=== PATIENT | female | born 1970 | race African-American/Black ===

== ENCOUNTER 2016-04-04 22:03 | Emergency (ER) | payer MEDICAID ==
[2016-04-04 22:42] LABS: ABSOLUTE BASOPHILS # (AUTO) 0.1 10^3/uL (0.0-0.2); ABSOLUTE EOSINOPHILS # (AUTO) 0.1 10^3/uL (0.0-0.6); ABSOLUTE LYMPHOCYTES (AUTO) 2.9 10^3/uL (0.5-4.7); ABSOLUTE MONOCYTES (AUTO) 0.6 10^3/uL (0.1-1.4); BASOPHILS % (AUTO) 0.7 % (0-2); EOSINOPHILS % (AUTO) 1.5 % (0-6); HEMATOCRIT 43.1 % (36.0-47.0); HGB HCT DIFFERENCE -1.1; LYMPHOCYTES % (AUTO) 33.5 % (13-45); MEAN CORPUSCULAR HEMOGLOBIN 27.4 pg (27.0-33.4); MEAN CORPUSCULAR HGB CONC 32.5 g/dL (32.0-36.0); MEAN CORPUSCULAR VOLUME 84 fl (80-97); MONOCYTES % (AUTO) 7.2 % (3-13); RED BLOOD COUNT 5.12 10^6/uL (3.72-5.28); RED CELL DISTRIBUTION WIDTH 13.4 % (11.5-14.0); SEGMENTED NEUTROPHILS % (AUTO) 57.1 % (42-78); WHITE BLOOD COUNT 8.7 10^3/uL (4.0-10.5)
[2016-04-04 22:57] LABS: ANION GAP 10 (5-19); BLOOD UREA NITROGEN 12 mg/dL (7-20); CALCIUM 9.4 mg/dL (8.4-10.2); CARBON DIOXIDE 29 mmol/L (22-30); CHLORIDE 103 mmol/L (98-107); CREATININE RESULT 0.75 mg/dL (0.52-1.25); GLUCOSE 131 mg/dL (75-110); POTASSIUM 4.3 mmol/L (3.6-5.0); SODIUM 141.9 mmol/L (137-145)
[2016-04-04] MEDS ORDERED: MORPHINE SULFATE 10 MG/ML INJ ONE (23:22)
--- NOTE | 2016-04-05 00:37 | ER Document Report ---
ED General - General Chief Complaint: Chest Pain Stated Complaint: CHEST PAIN Notes: Patient is a 46-year-old female past medical history of CHF, hypertension, morbid obesity, hyperlipidemia who presents with with acute onset of severe left shoulder pain and left chest wall pain. States this started after she lifted her arm and heard a "pop". This caused severe pain in the left shoulder and left chest that she describes as a sharp, constant pain. Pain is worsened by range of motion of the shoulder and palpation of the chest wall. Nothing improves the pain. States she's had similar symptoms in the past and has seen her primary care physician for concerns regarding her left shoulder. She denies any associated shortness of breath, vomiting, or diaphoresis. TRAVEL OUTSIDE OF THE [place] IN LAST 30 DAYS: No - HPI Onset: Just prior to arrival Onset/Duration: Sudden Quality of pain: Sharp Severity: Moderate Pain Level: 2 Associated symptoms: None Exacerbated by: Movement Relieved by: Denies Similar symptoms previously: Yes Recently seen / treated by doctor: Yes - Related Data Allergies/Adverse Reactions: aspirin Allergy (Severe, Verified 10/28/15 02:59) Anaphylaxis ibuprofen [Ibuprofen] Allergy (Severe, Verified 10/28/15 02:59) Anaphylaxis ciprofloxacin [From Cipro] Allergy (Intermediate, Verified 10/28/15 02:59) itching egg [Egg] Allergy (Verified 10/28/15 02:59) Anaphylaxis Penicillins Allergy (Verified 10/28/15 02:59) Anaphylaxis metoclopramide [From Reglan] Adverse Reaction (Severe, Verified 11/12/15 11:27) Past Medical History - General Information source: Patient - Social History Smoking Status: Never Smoker Frequency of alcohol use: None Drug Abuse: None Lives with: Spouse/Significant other Family History: Reviewed & Not Pertinent - Past Medical History Cardiac Medical History: Reports: Hx Congestive Heart Failure, Hx Hypertension Denies: Hx Heart Attack Pulmonary Medical History: Endocrine Medical History: Reports: Hx Diabetes Mellitus Type 2 Malignancy Medical History: GI Medical History: Reports: Hx Gastroesophageal Reflux Disease, Hx Irritable Bowel Musculoskeltal Medical History: Reports Hx Musculoskeletal Deformity, Reports Hx Musculoskeletal Trauma Psychiatric Medical History: Reports: Hx Anxiety, Hx Depression Infectious Medical History: Past Surgical History: Reports: Hx Breast Surgery - breast reduction, biopsy, Hx Mastectomy, Hx Rectal Surgery - Fistula, hemorrhoids, Hx Tubal Ligation - Immunizations Immunizations up to date: Yes Hx Diphtheria, Pertussis, Tetanus Vaccination: Yes Review of Systems - Review of Systems Notes: Constitutional: Negative for fever. HENT: Negative for sore throat. Eyes: Negative for visual changes. Cardiovascular: Positive for chest pain. Respiratory: Negative for shortness of breath. Gastrointestinal: Negative for abdominal pain, vomiting or diarrhea. Genitourinary: Negative for dysuria. Musculoskeletal: Positive for chest wall pain and left shoulder pain. Skin: Negative for rash. Neurological: Negative for headaches, weakness or numbness. 10 point ROS negative except as marked above and in HPI. Physical Exam - Vital signs Vitals: Resp Pulse Ox 25 H 96 04/04/16 22:08 04/04/16 22:08 I disagree with triage respiratory rate. Patient had even and unlabored respirations at 16 at time of my assessment Interpretation: Normal Notes: PHYSICAL EXAMINATION: GENERAL: Well-appearing, well-nourished and in no acute distress. HEAD: Atraumatic, normocephalic. EYES: Pupils equal round and reactive to light, extraocular movements intact, sclera anicteric, conjunctiva are normal. ENT: nares patent, oropharynx clear without exudates. Moist mucous membranes. NECK: Normal range of motion, supple without lymphadenopathy LUNGS: Breath sounds clear to auscultation bilaterally and equal. No wheezes rales or rhonchi. HEART: Regular rate and rhythm without murmurs Chest wall: Severe pain on palpation of the left anterior lateral chest wall ABDOMEN: Soft, nontender, normoactive bowel sounds. No guarding, no rebound. No masses appreciated. EXTREMITIES: Extreme pain of the left shoulder and left anterior chest with abduction and elevation of the shoulder above 90. NEUROLOGICAL: No focal neurological deficits. Moves all extremities spontaneously and on command. PSYCH: Normal mood, normal affect. SKIN: Warm, Dry, normal turgor, no rashes or lesions noted. Course - Re-evaluation Re-evalutation: 04/05/16 00:58 Presentation of chest pain in an otherwise well appearing patient. Low clinical suspicion for ACS given clinical history, exam, EKG without ST elevations or depressions, and negative initial troponin. HEART score less than or equal to 3. PE also seems unlikely given clinical history, absence of tachycardia or dyspnea. Patient is PERC criteria negative. CXR without evidence of pneumothorax or pneumonia. No widened mediastinum. Aortic dissection also seems unlikely given history, symmetric pulses, CXR, and vitals. Patient does report her pain started after she moved her left shoulder and heard a pop. She has a significant component of reproducible pain over the chest and shoulder with range of motion of the left shoulder. Given reassuring evaluation, will plan for discharge home at this time with return precautions and follow-up recommendations. - Vital Signs Vital signs: Temp Pulse Resp BP Pulse Ox 25 H 146/99 H 97 04/04/16 23:00 04/04/16 22:52 04/04/16 23:00 - Laboratory Result Diagrams: 04/04/16 22:31 04/04/16 22:31 Laboratory results interpreted by me: 04/04/16 22:31 Glucose 131 H - Diagnostic Test Radiology reviewed: Image reviewed, Reports reviewed Radiology results interpreted by me: 04/05/16 01:02 Chest x-ray: No acute infiltrate or pneumothorax - EKG Interpretation by Me Additional EKG results interpreted by me: 04/05/16 01:02 Normal sinus rhythm. Rate 70. No ST elevations or depressions. LVH. QTC 432 Discharge - Discharge Clinical Impression: Chest pain Qualifiers: Chest pain type: unspecified Qualified Code(s): R07.9 - Chest pain, unspecified Left shoulder pain Qualifiers: Chronicity: acute Qualified Code(s): M25.512 - Pain in left shoulder Condition: Good Disposition: HOME, SELF-CARE Additional Instructions: You were seen today for chest pain. The exact cause of your pain is unclear. However, based on your cardiac enzyme testing, chest x-ray, and EKG it does not appear that it is from an immediately life-threatening cause at this time. Although your testing here is normal is critical that you follow-up with your primary care physician for continued evaluation of this chest pain. Your pain appears to be originating from your left shoulder and you should discuss a referral to orthopedic surgery with your primary care doctor. Please return to emergency department immediately if you have worsening of your chest pain, shortness of breath, vomiting, become unable to exert yourself due to pain or difficulty breathing, you pass out, or have any pain that radiates into your arms, jaw, or back. Please also return if you have any additional symptoms that are concerning to you. Referrals: JULIA THOMAS MD [Primary Care Provider] - Follow up as needed
[2016-04-05 01:17] VITALS: BP 147/86
--- NOTE | 2016-04-05 10:20 | EKG REPORT ---
SEVERITY:- ABNORMAL ECG - SINUS RHYTHM LVH WITH SECONDARY REPOLARIZATION ABNORMALITY ANTERIOR Q WAVES, POSSIBLY DUE TO LVH : Confirmed by: Soheila Thompson 05-Apr-2016 10:19:04
== END 2016-04-05 01:17 | disposition home or self-care (01) ==
LOC: ER 22:03
DX: R07.89 Other chest pain (principal); M25.512 Pain in left shoulder; I10 Essential (primary) hypertension; E11.9 Type 2 diabetes mellitus without complications; E66.01 Morbid (severe) obesity due to excess calories; Z68.43 Body mass index [BMI] 50.0-59.9, adult; Z86.79 Personal history of other diseases of the circulatory system; Z91.012 Allergy to eggs; Z88.1 Allergy status to other antibiotic agents; Z87.892 Personal history of anaphylaxis; Z88.6 Allergy status to analgesic agent; Z88.0 Allergy status to penicillin; Z87.19 Personal history of other diseases of the digestive system
CPT/HCPCS: 93005; 99285; 96374; 36415; 85025; 80048; 84484; 71010; 93010; J2270

== ENCOUNTER 2016-04-20 23:31 | Emergency (ER) | payer MEDICAID ==
--- NOTE | 2016-04-21 01:17 | ER Document Report ---
ED Extremity Problem, Upper - General Chief Complaint: Arm Pain Stated Complaint: CHEST PAIN Time seen by provider: 01:17 Mode of Arrival: Ambulatory Information source: Patient TRAVEL OUTSIDE OF THE [place] IN LAST 30 DAYS: No - HPI Patient complains to provider of: Pain, Left, Shoulder Onset: Other - Greater than one month Recent injury: No Quality of pain: Achy Severity of pain: Moderate Pain Level: 4 Associated symptoms: Chest pain/discomfort, Short of breath Exacerbated by: Movement Relieved by: Nothing Similar symptoms previously: Yes Recently seen / treated by doctor: Yes Notes: Patient is a 46-year-old female complaining of pain to the left side of her body starting at the neck, radiating down the arm, and the left anterior chest wall, these symptoms have been going on for at least the past month, she has been evaluated in this emergency room for these symptoms twice previously, has been seen by her primary care provider and has for appointments with different specialists in the upcoming week to be seen for this complaint, she states that her primary care provider took her off of some medication recently that is used to treat gastroparesis because it was causing some lower extremity paralysis, and since then her pain has increased, she denies any new injury, she does report shortness of breath associated with the pain, reports it is painful to move the left shoulder and the neck - Related Data Allergies/Adverse Reactions: aspirin Allergy (Severe, Verified 10/28/15 02:59) Anaphylaxis ibuprofen [Ibuprofen] Allergy (Severe, Verified 10/28/15 02:59) Anaphylaxis ciprofloxacin [From Cipro] Allergy (Intermediate, Verified 10/28/15 02:59) itching egg [Egg] Allergy (Verified 10/28/15 02:59) Anaphylaxis Penicillins Allergy (Verified 10/28/15 02:59) Anaphylaxis metoclopramide [From Reglan] Adverse Reaction (Severe, Verified 11/12/15 11:27) Past Medical History - General Information source: Patient - Social History Smoking Status: Current Every Day Smoker Family History: Reviewed & Not Pertinent Patient has suicidal ideation: No Patient has homicidal ideation: No - Past Medical History Cardiac Medical History: Reports: Hx Congestive Heart Failure, Hx Hypertension Denies: Hx Heart Attack Pulmonary Medical History: Endocrine Medical History: Reports: Hx Diabetes Mellitus Type 2 Renal/ Medical History: Denies: Hx Peritoneal Dialysis Malignancy Medical History: GI Medical History: Reports: Hx Gastroesophageal Reflux Disease, Hx Irritable Bowel Musculoskeltal Medical History: Reports Hx Musculoskeletal Deformity, Reports Hx Musculoskeletal Trauma Psychiatric Medical History: Reports: Hx Anxiety, Hx Depression Infectious Medical History: Past Surgical History: Reports: Hx Breast Surgery - breast reduction, biopsy, Hx Mastectomy, Hx Rectal Surgery - Fistula, hemorrhoids, Hx Tubal Ligation - Immunizations Immunizations up to date: Yes Hx Diphtheria, Pertussis, Tetanus Vaccination: Yes Review of Systems - Review of Systems Constitutional: No symptoms reported EENT: No symptoms reported Cardiovascular: Chest pain Respiratory: Short of breath Gastrointestinal: No symptoms reported Genitourinary: No symptoms reported Female Genitourinary: No symptoms reported Musculoskeletal: See HPI Skin: No symptoms reported Hematologic/Lymphatic: No symptoms reported Neurological/Psychological: No symptoms reported -: Yes All other systems reviewed and negative Physical Exam - Vital signs Interpretation: Normal - General General appearance: Appears well, Alert - HEENT Head: Normocephalic, Atraumatic Eyes: Normal Pupils: PERRL - Respiratory Respiratory status: No respiratory distress Chest status: Tender - Left anterior chest wall Breath sounds: Normal Chest palpation: Normal - Cardiovascular Rhythm: Regular Heart sounds: Normal auscultation Murmur: No - Abdominal Inspection: Morbidly Obese Distension: No distension Bowel sounds: Normal Tenderness: Nontender Organomegaly: No organomegaly - Back Back: Normal, Nontender - Extremities General upper extremity: Normal color, Normal temperature General lower extremity: Normal inspection, Nontender, Normal color, Normal ROM , Normal temperature, Normal weight bearing. No: Annette's sign Shoulder: Tender - Tender to palpate left shoulder anteriorly and laterally, patient reports pain with range of motion testing, pain shoots down the arm, distal sensation and motor is intact, 2+ radial pulses - Neurological Neuro grossly intact: Yes Cognition: Normal Orientation: AAOx4 Kimberly Coma Scale Eye Opening: Spontaneous Crystal Coma Scale Verbal: Oriented Kimberly Coma Scale Motor: Obeys Commands Kimberly Coma Scale Total: 15 Speech: Normal Motor strength normal: LUE, RUE, LLE, RLE Sensory: Normal - Psychological Associated symptoms: Normal affect, Normal mood - Skin Skin Temperature: Warm Skin Moisture: Dry Skin Color: Normal Course - Re-evaluation Re-evalutation: 04/21/16 02:55 Patient declined morphine, requested Tylenol, on reevaluation states pain is "easing off", and states she just wants to go home, patient was advised to follow-up with her primary care provider in the specialists that she is scheduled to see this week, take Tylenol as needed for pain or return if symptoms worsen, patient acknowledges understanding and agreement with this plan - Laboratory Result Diagrams: 04/21/16 01:28 04/21/16 01:28 Laboratory results interpreted by me: 04/21/16 04/21/16 01:28 01:28 Basophils % 2.6 H Glucose 142 H - Diagnostic Test Radiology reviewed: Image reviewed, Reports reviewed - EKG Interpretation by Me EKG shows normal: Sinus rhythm Rate: Normal Rhythm: NSR When compared to previous EKG there are: No significant change Discharge - Discharge Clinical Impression: Left-sided chest wall pain Left shoulder pain Qualifiers: Chronicity: acute Qualified Code(s): M25.512 - Pain in left shoulder Condition: Stable Disposition: HOME, SELF-CARE Instructions: Chest Wall Pain ([facility]), Shoulder Injury ([facility]) Additional Instructions: Follow up with your primary care provider and the specialist that you're scheduled to see this week. Return to the emergency room immediately if symptoms worsen or any additional concerns.
[2016-04-21] MEDS ORDERED: MORPHINE SULFATE 10 MG/ML INJ IV ONE (01:43)
[2016-04-21 01:45] LABS: ABSOLUTE BASOPHILS # (AUTO) 0.2 10^3/uL (0.0-0.2); ABSOLUTE EOSINOPHILS # (AUTO) 0.1 10^3/uL (0.0-0.6); ABSOLUTE LYMPHOCYTES (AUTO) 2.6 10^3/uL (0.5-4.7); ABSOLUTE MONOCYTES (AUTO) 0.7 10^3/uL (0.1-1.4); ABSOLUTE NEUT (AUTO) 5.3 10^3/uL (1.7-8.2); BASOPHILS % (AUTO) 2.6 % (0-2); EOSINOPHILS % (AUTO) 1.6 % (0-6); HEMATOCRIT 41.7 % (36.0-47.0); HEMOGLOBIN 13.4 g/dL (12.0-15.5); HGB HCT DIFFERENCE -1.5; MEAN CORPUSCULAR HEMOGLOBIN 27.2 pg (27.0-33.4); MEAN CORPUSCULAR VOLUME 85 fl (80-97); MONOCYTES % (AUTO) 7.3 % (3-13); RED BLOOD COUNT 4.91 10^6/uL (3.72-5.28); RED CELL DISTRIBUTION WIDTH 13.5 % (11.5-14.0); SEGMENTED NEUTROPHILS % (AUTO) 59.5 % (42-78); WHITE BLOOD COUNT 8.9 10^3/uL (4.0-10.5)
[2016-04-21 02:00] LABS: ALBUMIN 3.9 g/dL (3.5-5.0); ALKALINE PHOSPHATASE 117 U/L (38-126); ANION GAP 11 (5-19); ASPARTATE AMINO TRANSFERASE 21 U/L (14-36); BILIRUBIN,TOTAL 0.8 mg/dL (0.2-1.3); BLOOD UREA NITROGEN 12 mg/dL (7-20); CALCIUM 9.4 mg/dL (8.4-10.2); CARBON DIOXIDE 28 mmol/L (22-30); CHLORIDE 103 mmol/L (98-107); CREATINE KINASE 82 U/L (30-135); GLUCOSE 142 mg/dL (75-110); POTASSIUM 3.7 mmol/L (3.6-5.0); SODIUM 141.9 mmol/L (137-145); TOTAL PROTEIN 7.4 g/dL (6.3-8.2)
[2016-04-21] MEDS ORDERED: ACETAMINOPHEN 325 MG TABLET PO ONE (02:07)
[2016-04-21 02:12] LABS: CREATINE KINASE MB 0.37 ng/mL (<4.55)
[2016-04-21 02:16] LABS: TROPONIN I < 0.012 ng/mL
[2016-04-21 02:23] LABS: ALANINE AMINOTRANSFERASE 23 U/L (9-52)
[2016-04-21 03:12] VITALS: BP 118/61
--- NOTE | 2016-04-21 10:14 | EKG REPORT ---
SEVERITY:- ABNORMAL ECG - SINUS RHYTHM LVH WITH SECONDARY REPOLARIZATION ABNORMALITY ANTERIOR Q WAVES, POSSIBLY DUE TO LVH : Confirmed by: Soheila Thompson 21-Apr-2016 10:12:24
== END 2016-04-21 03:26 | disposition home or self-care (01) ==
LOC: ER 23:31
DX: R07.89 Other chest pain (principal); M25.512 Pain in left shoulder; M54.2 Cervicalgia; R06.02 Shortness of breath; E11.43 Type 2 diabetes mellitus with diabetic autonomic (poly)neuropathy; K31.84 Gastroparesis; I10 Essential (primary) hypertension; F17.200 Nicotine dependence, unspecified, uncomplicated; Z87.892 Personal history of anaphylaxis; Z88.6 Allergy status to analgesic agent; Z88.1 Allergy status to other antibiotic agents; Z91.012 Allergy to eggs; Z88.0 Allergy status to penicillin
CPT/HCPCS: 93005; 99284; 36415; 82553; 82550; 85025; 80053; 84484; 71010; 93010; J3490

== ENCOUNTER → 2016-09-19 | Outpatient (CLI) | payer MEDICAID, OTHER | LOC: RAD 10:09 | PROVIDERS: ATTEND Orthopaedic Surgery Sports Medicine | DX: M50.30 Other cervical disc degeneration, unspecified cervical region (principal); Z53.09 Procedure and treatment not carried out because of other contraindication; F40.240 Claustrophobia ==

== ENCOUNTER → 2016-10-20 | Outpatient (CLI) | payer MEDICAID ==
--- NOTE | 2016-10-20 11:47 | RADIOLOGY REPORT (SQ) ---
EXAM DESCRIPTION: MRI CERVICAL SPINE WITHOUT COMPLETED DATE/TIME: 10/20/2016 11:09 am REASON FOR STUDY: OTHER CERVICAL DISC DEGENERATION, UNSPECIFIED CERVICAL REGION M50.30 OTHER CERVIC AL DISC DEGENERATION, UNSP CERVICAL REGIO COMPARISON: None. TECHNIQUE: Sagittal and Axial imaging includes T1, T2, STIR and gradient echo sequences. LIMITATIONS: None. FINDINGS: ALIGNMENT: Normal. VERTEBRAE: Intact. BONE MARROW: Normal. No marrow replacement or reactive changes. DISCS: Normal. No significant abnormal signal or loss of height. HARDWARE: None in the spine. CORD AND BASE OF BRAIN: Normal in size and signal intensity. SOFT TISSUES: No soft tissue masses. C1-C2: No significant spinal stenosis. C2-C3: No significant spinal stenosis or exit foraminal stenosis. C3-C4: No significant spinal stenosis or exit foraminal stenosis. C4-C5: No significant spinal stenosis or exit foraminal stenosis. C5-C6: No significant spinal stenosis or exit foraminal stenosis. C6-C7: No significant spinal stenosis or exit foraminal stenosis. C7-T1: No significant spinal stenosis or exit foraminal stenosis. UPPER THORACIC: Incompletely imaged. No significant spinal stenosis or exit foraminal stenosis. OTHER: No other significant finding. IMPRESSION: NORMAL MRI CERVICAL SPINE. TECHNICAL DOCUMENTATION: JOB ID: [id number] [employer]- All Rights Reserved
== END ==
LOC: RAD 09:28
PROVIDERS: ATTEND Orthopaedic Surgery Sports Medicine
DX: M50.30 Other cervical disc degeneration, unspecified cervical region (principal)
CPT/HCPCS: 72141

== ENCOUNTER 2016-12-13 05:02 | Observation (INO) | payer MEDICAID ==
[2016-12-13] MEDS ORDERED: ASPIRIN 81 MG TABLET, CHEWABLE PO ONE (05:04)
[2016-12-13 06:15] LABS: ABSOLUTE BASOPHILS # (AUTO) 0.1 10^3/uL (0.0-0.2); ABSOLUTE EOSINOPHILS # (AUTO) 0.2 10^3/uL (0.0-0.6); ABSOLUTE LYMPHOCYTES (AUTO) 2.6 10^3/uL (0.5-4.7); ABSOLUTE MONOCYTES (AUTO) 0.9 10^3/uL (0.1-1.4); ABSOLUTE NEUT (AUTO) 6.8 10^3/uL (1.7-8.2); BASOPHILS % (AUTO) 0.9 % (0-2); EOSINOPHILS % (AUTO) 1.6 % (0-6); HEMOGLOBIN 13.8 g/dL (12.0-15.5); HGB HCT DIFFERENCE 0.4; LYMPHOCYTES % (AUTO) 24.6 % (13-45); MEAN CORPUSCULAR HEMOGLOBIN 28.8 pg (27.0-33.4); MEAN CORPUSCULAR HGB CONC 33.6 g/dL (32.0-36.0); MEAN CORPUSCULAR VOLUME 86 fl (80-97); MONOCYTES % (AUTO) 8.7 % (3-13); RED BLOOD COUNT 4.77 10^6/uL (3.72-5.28); RED CELL DISTRIBUTION WIDTH 13.2 % (11.5-14.0); SEGMENTED NEUTROPHILS % (AUTO) 64.2 % (42-78); WHITE BLOOD COUNT 10.6 10^3/uL (4.0-10.5)
[2016-12-13 06:24] LABS: ALANINE AMINOTRANSFERASE 24 U/L (9-52); ALKALINE PHOSPHATASE 131 U/L (38-126); ANION GAP 10 (5-19); ASPARTATE AMINO TRANSFERASE 19 U/L (14-36); BILIRUBIN,DIRECT 0.4 mg/dL (0.0-0.4); BILIRUBIN,TOTAL 0.6 mg/dL (0.2-1.3); BLOOD UREA NITROGEN 11 mg/dL (7-20); CALCIUM 9.2 mg/dL (8.4-10.2); CARBON DIOXIDE 25 mmol/L (22-30); CHLORIDE 104 mmol/L (98-107); CREATINE KINASE 85 U/L (30-135); CREATININE RESULT 0.69 mg/dL (0.52-1.25); GLUCOSE 156 mg/dL (75-110); POTASSIUM 4.1 mmol/L (3.6-5.0); TOTAL PROTEIN 7.1 g/dL (6.3-8.2)
[2016-12-13 06:33] LABS: CREATINE KINASE MB 0.67 ng/mL (<4.55)
[2016-12-13 06:39] LABS: TROPONIN I < 0.012 ng/mL
[2016-12-13] MEDS ORDERED: CLOPIDOGREL BISULFATE 75 MG TABLET PO ONE (06:47)
--- NOTE | 2016-12-13 07:19 | ER Document Report ---
ED General - General Chief Complaint: Chest Pain Stated Complaint: CHEST PAIN Time Seen by Provider: 12/13/16 06:14 Mode of Arrival: Ambulatory Information source: Patient Notes: 46-year-old female history of hypertension presents with complaints of midsternal chest pressure radiating down the left arm. Patient notes she has had a stress test in the past denies any fevers or chills denies any nausea vomiting or diarrhea notes the pain came on all of a sudden is worse than before. Patient was recently here had 2 sets of negative enzymes and was discharged home on the second TRAVEL OUTSIDE OF THE [place] IN LAST 30 DAYS: No - HPI Onset: Just prior to arrival Onset/Duration: Persistent Quality of pain: Pressure Severity: Mild Pain Level: 1 Associated symptoms: Chest pain, Shortness of breath Exacerbated by: Denies Relieved by: Denies Similar symptoms previously: Yes Recently seen / treated by doctor: Yes - Related Data Allergies/Adverse Reactions: aspirin Allergy (Severe, Verified 10/28/15 02:59) Anaphylaxis ibuprofen [Ibuprofen] Allergy (Severe, Verified 10/28/15 02:59) Anaphylaxis ciprofloxacin [From Cipro] Allergy (Intermediate, Verified 10/28/15 02:59) itching egg [Egg] Allergy (Verified 10/28/15 02:59) Anaphylaxis Penicillins Allergy (Verified 10/28/15 02:59) Anaphylaxis metoclopramide [From Reglan] Adverse Reaction (Severe, Verified 11/12/15 11:27) Past Medical History - Social History Smoking Status: Never Smoker Cigarette use (# per day): No Chew tobacco use (# tins/day): No Smoking Education Provided: No Family History: Reviewed & Not Pertinent - Past Medical History Cardiac Medical History: Reports: Hx Congestive Heart Failure, Hx Hypertension Denies: Hx Heart Attack Pulmonary Medical History: Endocrine Medical History: Reports: Hx Diabetes Mellitus Type 2 Renal/ Medical History: Denies: Hx Peritoneal Dialysis Malignancy Medical History: GI Medical History: Reports: Hx Gastroesophageal Reflux Disease, Hx Irritable Bowel Musculoskeltal Medical History: Reports Hx Musculoskeletal Deformity, Reports Hx Musculoskeletal Trauma Psychiatric Medical History: Reports: Hx Anxiety, Hx Depression Infectious Medical History: Past Surgical History: Reports: Hx Breast Surgery - breast reduction, biopsy, Hx Mastectomy, Hx Rectal Surgery - Fistula, hemorrhoids, Hx Tubal Ligation - Immunizations Immunizations up to date: Yes Hx Diphtheria, Pertussis, Tetanus Vaccination: Yes Review of Systems - Review of Systems Notes: REVIEW OF SYSTEMS: CONSTITUTIONAL : Denies fever, chills, or sweats. Denies recent illness. EENT: Denies eye, ear, throat, or mouth pain or symptoms. Denies nasal or sinus congestion or discharge. Denies throat, tongue, or mouth swelling or difficulty swallowing. CARDIOVASCULAR: Admits to chest pain RESPIRATORY: Admits shortness of breath GASTROINTESTINAL: Denies abdominal pain or distention. Denies nausea, vomiting , or diarrhea. Denies blood in vomitus, stools, or per rectum. Denies black, tarry stools. Denies constipation. GENITOURINARY: Denies difficulty urinating, painful urination, burning, frequency, blood in urine, or discharge. FEMALE GENITOURINARY: Denies vaginal bleeding, heavy or abnormal periods, irregular periods. Denies vaginal discharge or odor. MUSCULOSKELETAL: Denies back or neck pain or stiffness. Denies joint pain or swelling. SKIN: Denies rash, lesions or sores. HEMATOLOGIC : Denies easy bruising or bleeding. LYMPHATIC: Denies swollen, enlarged glands. NEUROLOGICAL: Denies confusion or altered mental status. Denies passing out or loss of consciousness. Denies dizziness or lightheadedness. Denies headache. Denies weakness or paralysis or loss of use of either side. Denies problems with gait or speech. Denies sensory loss, numbness, or tingling. Denies seizures. PSYCHIATRIC: Denies anxiety or stress. Denies depression, suicidal ideation, or homicidal ideation. ALL OTHER SYSTEMS REVIEWED AND NEGATIVE. PHYSICAL EXAMINATION: GENERAL: Well-appearing, well-nourished and in no acute distress. HEAD: Atraumatic, normocephalic. EYES: Pupils equal round and reactive to light, extraocular movements intact, conjunctiva are normal. ENT: Nares patent, oropharynx clear without exudates. Moist mucous membranes. NECK: Normal range of motion, supple without lymphadenopathy LUNGS: Breath sounds clear to auscultation bilaterally and equal. No wheezes rales or rhonchi. HEART: Regular rate and rhythm without murmurs ABDOMEN: Soft, nontender, nondistended abdomen. No guarding, no rebound. No masses appreciated. Female : deferred Musculoskeletal: Normal range of motion, no pitting or edema. No cyanosis. NEUROLOGICAL: Cranial nerves grossly intact. Normal speech, normal gait. Normal sensory, motor exams PSYCH: Normal mood, normal affect. SKIN: Warm, Dry, normal turgor, no rashes or lesions noted. Dictation was performed using [employer] voice recognition software Physical Exam - Vital signs Vitals: Pulse Ox 95 12/13/16 05:04 Course - Re-evaluation Re-evalutation: 12/13/16 10:46 Physical examination noted no significant abnormality otherwise patient looks well is in no distress however given that she is having chest pain I will observe her, primary care physician has been contacted - Vital Signs Vital signs: Temp Pulse Resp BP Pulse Ox 97.7 F 71 24 H 143/98 H 93 12/13/16 10:26 12/13/16 10:26 12/13/16 10:26 12/13/16 10:26 12/13/16 10:26 - Laboratory Result Diagrams: 12/13/16 05:53 12/13/16 05:53 Laboratory results interpreted by me: 12/13/16 12/13/16 05:53 05:53 WBC 10.6 H Glucose 156 H Alkaline Phosphatase 131 H - Diagnostic Test Radiology reviewed: Image reviewed, Reports reviewed - EKG Interpretation by Al EKG shows normal: Sinus rhythm, [place], Intervals, QRS Complexes Discharge - Discharge Clinical Impression: Diastolic CHF Qualifiers: Congestive heart failure chronicity: acute Qualified Code(s): I50.31 - Acute diastolic (congestive) heart failure Chest pain Qualifiers: Chest pain type: unspecified Qualified Code(s): R07.9 - Chest pain, unspecified Condition: Stable Disposition: ADMITTED OBSERVATION Admitting Provider: [facility] Admitted: Telemetry
--- NOTE | 2016-12-13 07:24 | RADIOLOGY REPORT (SQ) ---
EXAM DESCRIPTION: CHEST SINGLE VIEW COMPLETED DATE/TIME: 12/13/2016 6:49 am REASON FOR STUDY: cp COMPARISON: 11/29/2016. 05/28/2016. EXAM PARAMETERS: NUMBER OF VIEWS: One view. TECHNIQUE: Single frontal radiographic view of the chest acquired. RADIATION DOSE: NA LIMITATIONS: None. FINDINGS: LUNGS AND PLEURA: Mild interstitial markings, chronic. MEDIASTINUM AND HILAR STRUCTURES: No masses. Contour normal. HEART AND VASCULAR STRUCTURES: Heart normal in size. Normal vasculature. BONES: No acute findings. HARDWARE: None in the chest. OTHER: No other significant finding. IMPRESSION: No acute cardiopulmonary findings. TECHNICAL DOCUMENTATION: JOB ID: [id number]
[2016-12-13] MEDS ORDERED: GLUCAGON,HUMAN RECOMB 1 MG INJ IM PRN (08:11)
[2016-12-13] MEDS ORDERED: INSULIN LISPRO 100 UNIT/ML 3 ML VIAL SUBCUT PRN (08:11)
[2016-12-13] MEDS ORDERED: DEXTROSE 50%-WATER 25 GM/50 ML DISP.SYRIN IV PRN ×2 (08:11)
[2016-12-13] MEDS ORDERED: DEXTROSE 40% GEL 15 GM TUBE PO PRN ×2 (08:11)
[2016-12-13] MEDS ORDERED: LANSOPRAZOLE 30 MG TAB.RAP.DR PO ONE (09:30)
--- NOTE | 2016-12-13 11:14 | PDOC H&P ---
History of Present Illness Admission Date/PCP: 12/13/16 08:00 JULIA THOMAS Patient complains of: Chest pain History of Present Illness: KALI MARTINEZ is a 46 year old female of Dr Thomas who presented to the ED with complain of chest pain that started about midnight earlier today. She described pain as achy and located in her mid sternal region, radiate to left side of her chest. No radiation into her left upper extremity. No definite palpitation, nausea, vomiting, diaphoresis. She claimed shortness of breath that she related to congestion and recent cold from her grand daughters. She denied productive cough, fever or chills. No nasal or sinus congestion. No sore throat. Her initial evaluation in the ED was unrevealing but due to her morbidities and been her second visit to the ED this month for chest pain the ED physician recommended admission for further evaluation and management for chest pain. Morbidities include Congestive Heart Failure, Hypertension, Diabetes Mellitus Type 2, Gastroesophageal Reflux Disease, Irritable Bowel, Anxiety, and Depression. Patient reported that she is currently been worked up for possible seizure and cardiac evaluation by her PCP. She claimed limitation to 2 tablets of Tylenol per day for pain management and cannot take Tramadol. She has history of allergy to Ibuprofen. She is requesting for pain medication to address her headache. Past Medical History Cardiac Medical History: Reports: Congestive Heart Failure, Hypertension Denies: Myocardial Infarction Pulmonary Medical History: Endocrine Medical History: Reports: Diabetes Mellitus Type 2 Malignancy Medical History: GI Medical History: Reports: Gastroesophageal Reflux Disease Psychiatric Medical History: Reports: Depression Hematology: Reports: Anemia Denies: Hemophilia, Sickle Cell Disease Infectious Medical History: Past Surgical History Past Surgical History: Reports: Mastectomy, Tubal Ligation Social History Smoking Status: Never Smoker Frequency of Alcohol Use: Occasional Hx Recreational Drug Use: No Drugs: None Hx Prescription Drug Abuse: No - Advance Directive Resuscitation Status: Full Code Family History Family History: Reviewed & Not Pertinent Parental Family History Reviewed: Yes Children Family History Reviewed: Yes Sibling(s) Family History Reviewed.: Yes Medication/Allergy Allergies/Adverse Reactions: aspirin Allergy (Severe, Verified 10/28/15 02:59) Anaphylaxis ibuprofen [Ibuprofen] Allergy (Severe, Verified 10/28/15 02:59) Anaphylaxis ciprofloxacin [From Cipro] Allergy (Intermediate, Verified 10/28/15 02:59) itching egg [Egg] Allergy (Verified 10/28/15 02:59) Anaphylaxis Penicillins Allergy (Verified 10/28/15 02:59) Anaphylaxis metoclopramide [From Reglan] Adverse Reaction (Severe, Verified 11/12/15 11:27) Review of Systems Constitutional: PRESENT: chills Eyes: ABSENT: visual disturbances Ears: ABSENT: hearing changes Nose, Mouth, and Throat: PRESENT: headache(s). ABSENT: mouth pain, sore throat , vertigo Cardiovascular: PRESENT: chest pain. ABSENT: as per HPI, dyspnea on exertion, edema, orthropnea, palpitations, other Respiratory: PRESENT: dyspnea - related to cold. ABSENT: as per HPI, cough, hemoptysis, sputum, other Gastrointestinal: ABSENT: abdominal pain, constipation, diarrhea, hematemesis, hematochezia, nausea, vomiting Genitourinary: ABSENT: dysuria, hematuria Musculoskeletal: ABSENT: joint swelling Integumentary: ABSENT: rash, wounds Neurological: ABSENT: abnormal gait, abnormal speech, confusion, dizziness, focal weakness, syncope Psychiatric: ABSENT: anxiety, depression, homidical ideation, suicidal ideation Endocrine: ABSENT: cold intolerance, heat intolerance, menstrual abnormalities, polydipsia, polyuria Hematologic/Lymphatic: ABSENT: easy bleeding, easy bruising, lymphadenopathy Allergic/Immunologic: PRESENT: seasonal rhinorrhea Physical Exam Vital Signs: Temp Pulse Resp BP Pulse Ox 97.7 F 71 24 H 143/98 H 93 12/13/16 10:26 12/13/16 10:26 12/13/16 10:26 12/13/16 10:26 12/13/16 10:26 Intake & Output 12/12/16 12/13/16 12/14/16 06:59 06:59 06:59 Weight 155.2 kg General appearance: PRESENT: no acute distress, morbidly obese Head exam: PRESENT: atraumatic, normocephalic Eye exam: PRESENT: conjunctiva pink. ABSENT: conjunctiva pale, periorbital swelling, scleral icterus Ear exam: PRESENT: normal external ear exam Mouth exam: PRESENT: moist. ABSENT: dry mucosa, laceration, neck supple, tongue midline, other Teeth exam: ABSENT: dental caries, dental tenderness, edentulous, poor dentation , other Neck exam: PRESENT: full ROM. ABSENT: carotid bruit, JVD, lymphadenopathy, thyromegaly Respiratory exam: PRESENT: clear to auscultation nelson Cardiovascular exam: PRESENT: RRR. ABSENT: diastolic murmur, rubs, systolic murmur Pulses: PRESENT: normal dorsalis pedis pul, +2 pedal pulses bilateral Vascular exam: PRESENT: normal capillary refill. ABSENT: pallor GI/Abdominal exam: PRESENT: normal bowel sounds, soft. ABSENT: distended, guarding, mass, organolmegaly, rebound, tenderness Rectal exam: PRESENT: deferred Gentrourinary exam: ABSENT: indwelling catheter Extremities exam: ABSENT: pedal edema Musculoskeletal exam: PRESENT: ambulatory Neurological exam: PRESENT: alert, awake, oriented to person, oriented to place , oriented to time, oriented to situation, CN II-XII grossly intact. ABSENT: motor sensory deficit Psychiatric exam: PRESENT: appropriate affect, normal mood. ABSENT: homicidal ideation, suicidal ideation Skin exam: PRESENT: dry, intact, warm. ABSENT: cyanosis, rash Results Laboratory Results: I reviewed her lab results on [facility] and form significant part of my medical decision marking. Impressions: Chest X-Ray 12/13/16 05:04 IMPRESSION: No acute cardiopulmonary findings. Assessment & Plan - Diagnosis (1) Chest pain with high risk for cardiac etiology Is this a current diagnosis for this admission?: Yes Plan: See covering admitting physician orders. (2) HTN (hypertension) Qualifiers: Hypertension type: essential hypertension Qualified Code(s): I10 - Essential (primary) hypertension Is this a current diagnosis for this admission?: Yes Plan: See covering admitting physician orders. (3) Diabetes mellitus type 2 in obese Is this a current diagnosis for this admission?: Yes Plan: See covering admitting physician orders. (4) HLD (hyperlipidemia) Qualifiers: Hyperlipidemia type: unspecified Qualified Code(s): E78.5 - Hyperlipidemia , unspecified Is this a current diagnosis for this admission?: Yes Plan: See covering admitting physician orders. (5) Morbid obesity Is this a current diagnosis for this admission?: Yes Plan: See covering admitting physician orders. (6) SOPHY (obstructive sleep apnea) Is this a current diagnosis for this admission?: Yes Plan: See covering admitting physician orders. - Time Time Spent: 50 to 70 Minutes Medications reviewed and adjusted accordingly: Yes Anticipated discharge: Home Within: Other - Plan Summary Plan Summary: See covering admitting physician orders.
--- NOTE | 2016-12-13 11:46 | EKG REPORT ---
SEVERITY:- ABNORMAL ECG - SINUS RHYTHM LVH WITH SECONDARY REPOLARIZATION ABNORMALITY ANTERIOR Q WAVES, POSSIBLY DUE TO LVH : Confirmed by: Soheila Thompson 13-Dec-2016 11:45:53
[2016-12-13] MEDS ORDERED: ACETAMINOPHEN 325 MG TABLET ONE (12:06)
[2016-12-13] MEDS ORDERED: NITROGLYCERIN 2% OINTMENT 1 GM PACKET ONE (12:47)
[2016-12-13] MEDS: ENOXAPARIN SODIUM INJ 40 MG/0.4 ML DISP.SYRIN SUBCUT SCH (12:50)
[2016-12-13] MEDS: NITROGLYCERIN 2% OINTMENT 1 GM PACKET TP SCH ×3 (14:27→22:31)
[2016-12-13] MEDS ORDERED: RAMIPRIL 10 MG CAPSULE PO ONE (16:00)
[2016-12-13 20:00] LABS: CREATINE KINASE MB 0.55 ng/mL (<4.55)
[2016-12-13 20:01] LABS: TROPONIN I < 0.012 ng/mL
[2016-12-13] MEDS: ACETAMINOPHEN 325 MG TABLET PO PRN (20:13)
[2016-12-13] MEDS: ATORVASTATIN CALCIUM 20 MG TABLET PO SCH (22:31)
[2016-12-14 01:16] LABS: CREATINE KINASE MB 0.49 ng/mL (<4.55)
[2016-12-14 01:18] LABS: TROPONIN I < 0.012 ng/mL
[2016-12-14] MEDS: NITROGLYCERIN 2% OINTMENT 1 GM PACKET TP SCH ×3 (03:21→09:45)
[2016-12-14] MEDS: LANSOPRAZOLE 30 MG TAB.RAP.DR PO SCH (06:34)
[2016-12-14] MEDS: SITAGLIPTIN PHOSPHATE 50 MG TABLET PO SCH (09:44)
[2016-12-14] MEDS: METOPROLOL TARTRATE 25 MG TABLET PO SCH (09:45)
[2016-12-14] MEDS: FUROSEMIDE 20 MG TABLET PO SCH (09:45)
[2016-12-14] MEDS: ENOXAPARIN SODIUM INJ 40 MG/0.4 ML DISP.SYRIN SUBCUT SCH (09:46)
[2016-12-14] MEDS: FLUTICASONE NASAL SPRAY 50 MCG/SPRY 120 SPRAY/16 GM NASL SCH (09:47)
[2016-12-14] MEDS ORDERED: RAMIPRIL 10 MG CAPSULE PO SCH (10:00)
[2016-12-14] MEDS ORDERED: RAMIPRIL 5 MG CAPSULE PO SCH (10:00)
[2016-12-14] MEDS ORDERED: (PENDING PHARMACY ID) (Liraglutide [Victoza 2-Pak] 1.8 MG) SQ SCH (10:00)
[2016-12-14] MEDS ORDERED: Liraglutide [Victoza 2-Pak] 1.8 MG SUBCUT ONE (11:00)
[2016-12-14] MEDS ORDERED: MAG HYDROX/AL HYDROX/SIMETH SUSP 30 ML UDCUP PO PRN (12:08)
--- NOTE | 2016-12-14 12:17 | PDOC PROGRESS REPORT ---
Subjective Progress Note for:: 12/14/16 Subjective:: No chest pain or difficulty with breathing. Intermittent abdominal pain. No nausea or vomiting. No fever or chills. Physical Exam Vital Signs: Temp Pulse Resp BP Pulse Ox 97.7 F 75 18 145/80 H 92 12/14/16 07:18 12/14/16 07:18 12/14/16 07:18 12/14/16 07:18 12/14/16 07:18 Intake & Output 12/13/16 12/14/16 12/15/16 06:59 06:59 06:59 Intake Total 1710 Balance 1710 Weight 155.8 kg General appearance: PRESENT: no acute distress, severe distress Head exam: PRESENT: atraumatic, normocephalic Eye exam: PRESENT: conjunctiva pink. ABSENT: conjunctiva pale, scleral icterus Respiratory exam: PRESENT: clear to auscultation nelson GI/Abdominal exam: PRESENT: normal bowel sounds, soft. ABSENT: distended, guarding, mass, organolmegaly, rebound, tenderness Extremities exam: ABSENT: pedal edema Musculoskeletal exam: ABSENT: normal inspection Neurological exam: PRESENT: alert, awake, oriented to person, oriented to place , oriented to time, oriented to situation, CN II-XII grossly intact. ABSENT: motor sensory deficit Psychiatric exam: PRESENT: appropriate affect, normal mood. ABSENT: homicidal ideation, suicidal ideation Skin exam: PRESENT: dry, intact, warm. ABSENT: cyanosis, rash Results Laboratory Results: 12/13/16 12/13/16 12/13/16 12:30 12:30 18:45 Creatine Kinase 72 76 CK-MB (CK-2) Troponin I < 0.012 12/13/16 12/14/16 12/14/16 18:45 00:41 00:41 Creatine Kinase 67 CK-MB (CK-2) 0.55 0.49 Troponin I < 0.012 < 0.012 Impressions: Chest X-Ray 12/13/16 05:04 IMPRESSION: No acute cardiopulmonary findings. Assessment & Plan - Diagnosis (1) Chest pain with high risk for cardiac etiology Is this a current diagnosis for this admission?: Yes (2) HTN (hypertension) Qualifiers: Hypertension type: essential hypertension Qualified Code(s): I10 - Essential (primary) hypertension Is this a current diagnosis for this admission?: Yes (3) Diabetes mellitus type 2 in obese Is this a current diagnosis for this admission?: Yes (4) HLD (hyperlipidemia) Qualifiers: Hyperlipidemia type: unspecified Qualified Code(s): E78.5 - Hyperlipidemia , unspecified Is this a current diagnosis for this admission?: Yes (5) Morbid obesity Is this a current diagnosis for this admission?: Yes (6) SOPHY (obstructive sleep apnea) Is this a current diagnosis for this admission?: Yes - Time Time Spent with patient: 25-34 minutes Medications reviewed and adjusted accordingly: Yes Anticipated discharge: Home Within: within 24 hours - Plan Summary Plan Summary: See covering attending physician orders. D/C Nitroglycerin. Increase Ramipril to 10 mg po bid. Start on Nicotine 21 mg / patch daily. Start on maalox 30 Ml po q6hrs prn for reflux discomfort.
[2016-12-14] MEDS: ACETAMINOPHEN 325 MG TABLET PO PRN ×2 (17:27→22:40)
[2016-12-14] MEDS: RAMIPRIL 10 MG CAPSULE PO SCH (22:39)
[2016-12-14] MEDS: ATORVASTATIN CALCIUM 20 MG TABLET PO SCH (22:40)
[2016-12-15] MEDS: LANSOPRAZOLE 30 MG TAB.RAP.DR PO SCH (06:23)
[2016-12-15] MEDS: METOPROLOL TARTRATE 25 MG TABLET PO SCH (08:41)
[2016-12-15] MEDS: ACETAMINOPHEN 325 MG TABLET PO PRN ×2 (08:42→23:22)
[2016-12-15] MEDS: ENOXAPARIN SODIUM INJ 40 MG/0.4 ML DISP.SYRIN SUBCUT SCH (09:21)
[2016-12-15] MEDS: RAMIPRIL 10 MG CAPSULE PO SCH ×2 (09:21→19:56)
[2016-12-15] MEDS: SITAGLIPTIN PHOSPHATE 50 MG TABLET PO SCH (09:21)
[2016-12-15] MEDS: FLUTICASONE NASAL SPRAY 50 MCG/SPRY 120 SPRAY/16 GM NASL SCH (09:21)
[2016-12-15] MEDS: Liraglutide [Victoza 2-Pak] 1.8 MG SUBCUT SCH (09:22)
[2016-12-15] MEDS: FUROSEMIDE 20 MG TABLET PO SCH (09:22)
--- NOTE | 2016-12-15 12:54 | PDOC DISCHARGE SUMMARY ---
General - Admit/Disc Date/PCP Admission Date/Primary Care Provider: 12/13/16 08:06 Discharge Date: 12/15/16 - Discharge Diagnosis (1) Chest pain Is this a current diagnosis for this admission?: Yes Summary: All cardiac workup is negative discussed with the cardiology suggests the follow -up outpatients for the echocardiogram and a stress test (2) HLD (hyperlipidemia) Is this a current diagnosis for this admission?: Yes Summary: Currently stable (3) HTN (hypertension) Is this a current diagnosis for this admission?: Yes Summary: Well under control (4) Diastolic CHF Is this a current diagnosis for this admission?: Yes Summary: Schedule outpatients echocardiogram per cardiology (5) Diabetes mellitus type 2 in obese Is this a current diagnosis for this admission?: Yes Summary: Continues current medication (6) Morbid obesity Is this a current diagnosis for this admission?: Yes (7) SOPHY (obstructive sleep apnea) Is this a current diagnosis for this admission?: Yes Summary: Uses CPAP (8) Syncopal episodes Is this a current diagnosis for this admission?: Yes Summary: Patients need a Holter monitor and already scheduled to see a neurology - Additional Information Resuscitation Status: Full Code Discharge Diet: Cardiac Discharge Activity: Activity As Tolerated Home Medications: Atorvastatin Calcium [Lipitor 20 mg Tablet] 20 mg PO QHS 12/13/16 Dexlansoprazole [Dexilant 60 mg Capsule] 60 mg PO DAILY 12/13/16 Fluticasone Propionate [Flonase Nasal [place] 50 Mcg/[place] 16 gm] 1 spray NASL DAILY 12/13/16 Furosemide [Lasix 20 mg Tablet] 20 mg PO DAILY 12/13/16 Liraglutide [Victoza 2-Dane] 1.8 ml SQ DAILY 12/13/16 Metoprolol Tartrate [Lopressor 25 mg Tablet] 25 mg PO [id number] 12/13/16 Ramipril [Altace 5 mg Capsule] 10 mg PO DAILY 12/13/16 Sitagliptin Phosphate [Januvia] 100 mg PO DAILY 12/13/16 History of Present Illness History of Present Illness: KALI MARTINEZ is a 46 year old female This is a 45-year-old female's with multiple medical problems came to the [facility] with a complaint of chest pains on and off for several daysPatient also have a passing out episodes Patient's was admitted for further evaluation and rule out acute coronary syndromes Hospital Course Hospital Course: Is a 46-year-old female with multiple medical problem as able came to the emergency department on and off chest pain for the last several days and patient have also passing of episodes with ongoing problem Patient's admitting in the hospital to rule out acute coronary syndromes patient EKG and all cardiac enzyme was negative Patient's other blood work was all stable Patient's denied any chest pain without any shortness of the breath Patient's ambulating in the hallway without any problems Patient's also scheduled to see a neurology as outpatient as per the ongoing chronic headache Patient otherwise all the vital signs stable and discussed with the cardiology On-call and suggested patient's discharge home and follow with him Physical Exam Vital Signs: Temp Pulse Resp BP Pulse Ox 97.6 F 65 18 142/84 H 94 12/15/16 11:36 12/15/16 11:36 12/15/16 11:36 12/15/16 11:36 12/15/16 11:36 Intake & Output 12/14/16 12/15/16 12/16/16 06:59 06:59 06:59 Intake Total 1710 2125 475 Balance 1710 2125 475 Weight 155.8 kg 153.5 kg 153.5 kg General appearance: PRESENT: no acute distress, well-developed, well-nourished Head exam: PRESENT: atraumatic, normocephalic Eye exam: PRESENT: conjunctiva pink, EOMI, PERRLA. ABSENT: scleral icterus Ear exam: PRESENT: normal external ear exam Mouth exam: PRESENT: moist, tongue midline Neck exam: PRESENT: full ROM. ABSENT: carotid bruit, JVD, lymphadenopathy, thyromegaly Respiratory exam: PRESENT: clear to auscultation nelson Cardiovascular exam: PRESENT: RRR. ABSENT: diastolic murmur, rubs, systolic murmur Pulses: PRESENT: normal dorsalis pedis pul, +2 pedal pulses bilateral Vascular exam: PRESENT: normal capillary refill GI/Abdominal exam: PRESENT: normal bowel sounds, soft. ABSENT: distended, guarding, mass, organolmegaly, rebound, tenderness Rectal exam: PRESENT: deferred Neurological exam: PRESENT: alert, awake, oriented to person, oriented to place , oriented to time, oriented to situation, CN II-XII grossly intact. ABSENT: motor sensory deficit Psychiatric exam: PRESENT: appropriate affect, normal mood. ABSENT: homicidal ideation, suicidal ideation Skin exam: PRESENT: dry, intact, warm. ABSENT: cyanosis, rash Results Laboratory Results: 12/13/16 12/13/16 12/13/16 12:30 12:30 18:45 Creatine Kinase 72 76 CK-MB (CK-2) Troponin I < 0.012 12/13/16 12/14/16 12/14/16 18:45 00:41 00:41 Creatine Kinase 67 CK-MB (CK-2) 0.55 0.49 Troponin I < 0.012 < 0.012 Impressions: Chest X-Ray 12/13/16 05:04 IMPRESSION: No acute cardiopulmonary findings. Plan Time Spent: Greater than 30 Minutes - Discussed with the patient about the all the test results discussed with the cardiology and follow outpatient
--- NOTE | 2016-12-15 19:35 | PDOC CONSULTATION ---
Consultation Consult Date: 12/15/16 Attending physician:: JULIA THOMAS Consult reason:: Chest pain History of Present Illness Admission Date/PCP: 12/13/16 08:06 Patient complains of: Chest pain and shortness of breath History of Present Illness: KALI MARTINEZ is a 46 year old female with multiple medical problems admitted through the emergency department complaint of chest pains on and off for several days. Patient also have a passing out episodes. The chest discomfort is described as tightness and heaviness in the center of chest. This is related to exertion and would last a few minutes. There is associated shortness of breath and some feeling of rapid heartbeat. Patient had also noted multiple episodes of passing out spells. Patient claims that she is able to hear during this spell but cannot move her limbs or to speak. This would eventually pass on. Patient claims excessive daytime sleepiness and tiredness. Patient claims that she was diagnosed to have sleep apnea but never really followed through with CPAP therapy and had to return her machine. Patient's was admitted for further evaluation and rule out acute coronary syndromes Past Medical History Cardiac Medical History: Reports: Congestive Heart Failure, Hypertension, Other - Sleep apnea syndrome Denies: Myocardial Infarction Pulmonary Medical History: Endocrine Medical History: Reports: Diabetes Mellitus Type 2 Malignancy Medical History: GI Medical History: Reports: Gastroesophageal Reflux Disease Psychiatric Medical History: Reports: Depression Hematology: Reports: Anemia Denies: Hemophilia, Sickle Cell Disease Infectious Medical History: Past Surgical History Past Surgical History: Reports: Mastectomy, Tubal Ligation Social History Information Source: Patient Smoking Status: Never Smoker Frequency of Alcohol Use: Occasional Hx Recreational Drug Use: No Drugs: None Hx Prescription Drug Abuse: No - Advance Directive Resuscitation Status: Full Code Surrogate healthcare decision maker:: Patient's is the surrogate decision-maker Family History Family History: CAD, Hypertension Parental Family History Reviewed: Yes Children Family History Reviewed: Yes Sibling(s) Family History Reviewed.: Yes Medication/Allergy Home Medications: Atorvastatin Calcium [Lipitor 20 mg Tablet] 20 mg PO QHS 12/13/16 Dexlansoprazole [Dexilant 60 mg Capsule] 60 mg PO DAILY 12/13/16 Fluticasone Propionate [Flonase Nasal [place] 50 Mcg/[place] 16 gm] 1 spray NASL DAILY 12/13/16 Furosemide [Lasix 20 mg Tablet] 20 mg PO DAILY 09/16/17 Liraglutide [Victoza 2-Dane] 1.8 ml SQ DAILY 12/13/16 Metoprolol Tartrate [Lopressor 25 mg Tablet] 25 mg PO [id number] 12/13/16 Ramipril [Altace 5 mg Capsule] 10 mg PO DAILY 12/13/16 Sitagliptin Phosphate [Januvia] 100 mg PO DAILY 12/13/16 Allergies/Adverse Reactions: aspirin Allergy (Severe, Verified 10/28/15 02:59) Anaphylaxis ibuprofen [Ibuprofen] Allergy (Severe, Verified 10/28/15 02:59) Anaphylaxis ciprofloxacin [From Cipro] Allergy (Intermediate, Verified 10/28/15 02:59) itching egg [Egg] Allergy (Verified 10/28/15 02:59) Anaphylaxis Penicillins Allergy (Verified 10/28/15 02:59) Anaphylaxis metoclopramide [From Reglan] Adverse Reaction (Severe, Verified 11/12/15 11:27) Review of Systems Review of Systems: Please see history of present illness and past medical history as wall. Constitutional: No fever or chills reported. Head : No recent chronic headaches, recent head injury. Eyes: No recent eye pain, diplopia, redness, discharge, acute visual changes. Ears: No recent chronic ear pain, acute hearing loss, ear discharge. Oral cavity: No recent ulcerations, bleeding, oral cavity discomfort. Neck: No recent acute neck pain reported. Hematologic: No recent easy bruising or bleeding or hematologic malignancy reported. Lymphatic: No recent lymphatic malignancy, chronic lymphadenopathy reported yet Cardiovascular system review: See history of present illness. Respiratory system review: No recent chronic cough, hemoptysis, blood clots in the lungs reported. Shortness of breath on exertion Gastrointestinal system review: Negative for any recent acute or chronic abdominal pain, hematemesis, melena, recent change in bowel habits. Genitourinary system review: No recent acute or chronic hematuria, flank pain, UTI etc. reported. Skin system review: Negative for any recent abnormal bruising, no rash, no pruritus reported. Neurologic: No prior history of strokes, mini strokes, seizure disorder. Psychologic: No history of major psychosis or major depression reported. Musculoskeletal: Minor aches and pains reported. No acute joint swelling reported. Endocrine: No recent polyuria, polydipsia, recent heat or cold intolerance. Describes excessive daytime sleepiness. Physical Exam Vital Signs: Temp Pulse Resp BP Pulse Ox 97.9 F 80 18 133/65 H 94 12/15/16 17:03 12/15/16 17:03 12/15/16 17:03 12/15/16 17:03 12/15/16 17:03 Intake & Output 12/14/16 12/15/16 12/16/16 06:59 06:59 06:59 Intake Total 1710 2125 1080 Balance 1710 2125 1080 Weight 155.8 kg 153.5 kg 153.5 kg Exam: GENERAL: well-nourished and in no acute distress. Alert and oriented x3 HEAD: Atraumatic, normocephalic. EYES: Pupils equal round and reactive to light, extraocular movements intact, sclera anicteric, conjunctiva are normal. ENT: TMs normal, nares patent, oropharynx clear without exudates. Moist mucous membranes. No oral ulcerations or bleeding gums noted NECK: supple without lymphadenopathy. Trachea is central. No cervical or axillary lymphadenopathy noted. Carotids are 2+, JVD WNL LUNGS: Respiration seems nonlabored, no significant accessory muscle action noted. Breath sounds clear to auscultation bilaterally and equal noted. No wheezes rales or rhonchi noted. No significant dullness noted on percussion. CHEST: Palpation of the chest wall shows no significant chest wall tenderness. No other significant abnormalities noted. 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 ABDOMEN: Soft, no significant tenderness appreciated, normoactive bowel sounds. No guarding, no rebound. No rigidity noted . No masses appreciated. EXTREMITIES: Pedal pulses are 1-2+, no calf tenderness noted. No clubbing or cyanosis.trace to 1+ pedal edema noted NEUROLOGICAL: Focused neurological exam showed no significant neurologic deficit. Normal speech, no focal weakness appreciated. PSYCH: Normal mood, normal affect. Judgment and insight within normal limits. SKIN: No significant ecchymosis, rash, ulcerations or signs of pruritus noted. MUSCULOSKELETAL EXAM: No significant joint swelling noted. Results Laboratory Results: 12/13/16 12/13/16 12/13/16 12:30 12:30 18:45 Creatine Kinase 72 76 CK-MB (CK-2) Troponin I < 0.012 12/13/16 12/14/16 12/14/16 18:45 00:41 00:41 Creatine Kinase 67 CK-MB (CK-2) 0.55 0.49 Troponin I < 0.012 < 0.012 EKG Comments: Sinus rhythm, minor nonspecific ST-T changes noted Impressions: Chest X-Ray 12/13/16 05:04 IMPRESSION: No acute cardiopulmonary findings. Assessment & Plan - Diagnosis (1) Chest pain Qualifiers: Chest pain type: unspecified Qualified Code(s): R07.9 - Chest pain, unspecified Is this a current diagnosis for this admission?: Yes (2) HLD (hyperlipidemia) Qualifiers: Hyperlipidemia type: unspecified Qualified Code(s): E78.5 - Hyperlipidemia , unspecified Is this a current diagnosis for this admission?: Yes (3) HTN (hypertension) Qualifiers: Hypertension type: essential hypertension Qualified Code(s): I10 - Essential (primary) hypertension Is this a current diagnosis for this admission?: Yes (4) Syncopal episodes Qualifiers: Syncope type: unspecified Qualified Code(s): R55 - Syncope and collapse Is this a current diagnosis for this admission?: Yes (5) Diastolic CHF Qualifiers: Congestive heart failure chronicity: chronic Qualified Code(s): I50.32 - Chronic diastolic (congestive) heart failure Is this a current diagnosis for this admission?: No (6) SOPHY (obstructive sleep apnea) Is this a current diagnosis for this admission?: Yes - Notes Notes: Chest pain: Patient has some typical and atypical features of chest pain. Cardiac enzymes so far has been negative. Electrocardiogram did not show any definitive ST segment changes. Multiple differential diagnoses exist in this patient. In descending order of probability this includes underlying coronary artery disease, gastroesophageal reflux, musculoskeletal pain, referred pain from elsewhere, anxiety panic disorder etc.Patient has significant cardiac risk factors, which indicates that there is a intermediate probability of chest discomfort coming from underlying CAD. Feel that it would need to be evaluated further. Discussed evaluation to assess this. In this regard risk benefits of nuclear stress test and other alternative processes were discussed in detail. The patient prefers to undergo nuclear stress test. The small risk of radiation , myocardial infarction, , cardiac arrhythmias, respiratory distress etc. were discussed. Patient understood the risks and gave informed consent. Nuclear stress test was therefore scheduled. For risk evaluation, patient is also being scheduled for a 2-D echocardiogram. Patient questions were answered. Hyperlipidemia: LDL goal is less than 70. Recommend statin therapy at least intermediate or high dose, of high potency status. Periodic lipid panel and liver panel is indicated. Patient to report any significant muscle discomfort or other side effects. Hypertension: Reasonably well controlled. Blood pressure goal in this patient is 135/85 or less. This was discussed with the patient. Currently blood pressure under reasonable control. Better medication for this patient are STALIN inhibitor/ARB/beta reece etc. discussed side effects of uncontrolled hypertension and also severe hypotension. Syncope: The cause is undetermined at this time. There could be multiple differential diagnosis. This includes cardiac arrhythmia in this patient's age group, hypotension secondary to orthostasis, seizure disorder, hypoglycemia et cetera. Both kendall and tachyarrhythmias are possible. Patient will benefit from cardiac monitoring during this admission. May need to consider outpatient cardiac monitoring using mobile cardiac chamber worker if clinically indicated. Sleep apnea obstructive: This is suspect that based on patient's symptoms of intermittent snoring, daytime fatigue and somnolence. Patient also has difficulty falling asleep and staying asleep. Patient has obesity and oropharyngeal exams suggest high probability of underlying sleep apnea syndrome. Patient would benefit from a sleep study and this can be scheduled as an outpatient. Diastolic CHF: Seems chronic from diastolic dysfunction. Possible contribution from chronic right heart failure. Currently is stable continue diuretic therapy. - Time Time Spent: 50 to 70 Minutes - CODE STATUS was discussed, patient remains full code. Surrogate decision-maker unchanged. Multiple medical problems were addressed. More than 50% of the time spent coordinating care, discussing management plans with involved caregivers. Management plans discussed with involved personnels. Medical decision making was of moderate to high complexity , patient's has multiple comorbidities. Medications reviewed and adjusted accordingly: Yes
[2016-12-15] MEDS: ATORVASTATIN CALCIUM 20 MG TABLET PO SCH (19:57)
[2016-12-16] MEDS: LANSOPRAZOLE 30 MG TAB.RAP.DR PO SCH (06:07)
--- NOTE | 2016-12-16 07:54 | EKG REPORT ---
SEVERITY:- ABNORMAL ECG - SINUS RHYTHM LVH WITH SECONDARY REPOLARIZATION ABNORMALITY ANTERIOR Q WAVES, POSSIBLY DUE TO LVH : Confirmed by: Stephen Castillo MD 16-Dec-2016 07:54:12
[2016-12-16] MEDS ORDERED: KETOROLAC TROMETHAMINE 10 MG TABLET PO ONE (09:30)
--- NOTE | 2016-12-16 09:43 | PDOC PROGRESS REPORT ---
Subjective Progress Note for:: 12/16/16 Subjective:: Patient seems to be doing better with gradual improvement. Pt is denying any chest arm or neck discomfort. Patient denying any PND, orthopnea. Patient denied any sustained palpitations, dizziness, syncope, near syncope. Patient denying any fever chills. Patient denying any other significant discomfort. Patient is maintaining sinus rhythm. Patient had rest images performed today. Patient undergoing stress images today. Risk benefits of nuclear stress testing were discussed today. Review of systems: Rest review of systems negative. Medications: Medications have been reviewed. Physical Exam Vital Signs: Temp Pulse Resp BP Pulse Ox 98.0 F 70 20 144/75 H 91 L 12/16/16 04:40 12/16/16 07:00 12/16/16 04:40 12/16/16 04:40 12/16/16 04:40 Intake & Output 12/15/16 12/16/16 12/17/16 06:59 06:59 06:59 Intake Total 2125 1440 Balance 2125 1440 Weight 153.5 kg 153.5 kg Exam: GENERAL: well-nourished and in no acute distress. Alert and oriented x3 HEAD: Atraumatic, normocephalic. EYES: Pupils equal round and reactive to light, extraocular movements intact, sclera anicteric, conjunctiva are normal. ENT: TMs normal, nares patent, oropharynx clear without exudates. Moist mucous membranes. No oral ulcerations or bleeding gums noted NECK: supple without lymphadenopathy. Trachea is central. No cervical or axillary lymphadenopathy noted. Carotids are 2+, JVD WNL LUNGS: Respiration seems nonlabored, no significant accessory muscle action noted. Breath sounds clear to auscultation bilaterally and equal noted. No wheezes rales or rhonchi noted. No significant dullness noted on percussion. CHEST: Palpation of the chest wall shows no significant chest wall tenderness. No other significant abnormalities noted. 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 ABDOMEN: Soft, no significant tenderness appreciated, normoactive bowel sounds. No guarding, no rebound. No rigidity noted . No masses appreciated. EXTREMITIES: Pedal pulses are 1-2+, no calf tenderness noted. No clubbing or cyanosis.trace to 1+ pedal edema noted NEUROLOGICAL: Focused neurological exam showed no significant neurologic deficit. Normal speech, no focal weakness appreciated. PSYCH: Normal mood, normal affect. Judgment and insight within normal limits. SKIN: No significant ecchymosis, rash, ulcerations or signs of pruritus noted. MUSCULOSKELETAL EXAM: No significant joint swelling noted. Results Laboratory Results: 12/13/16 12/13/16 12/13/16 12:30 12:30 18:45 Creatine Kinase 72 76 CK-MB (CK-2) Troponin I < 0.012 12/13/16 12/14/16 12/14/16 18:45 00:41 00:41 Creatine Kinase 67 CK-MB (CK-2) 0.55 0.49 Troponin I < 0.012 < 0.012 Impressions: Chest X-Ray 12/13/16 05:04 IMPRESSION: No acute cardiopulmonary findings. Assessment & Plan - Diagnosis (1) Chest pain Qualifiers: Chest pain type: unspecified Qualified Code(s): R07.9 - Chest pain, unspecified Is this a current diagnosis for this admission?: Yes (2) HLD (hyperlipidemia) Qualifiers: Hyperlipidemia type: unspecified Qualified Code(s): E78.5 - Hyperlipidemia , unspecified Is this a current diagnosis for this admission?: Yes (3) HTN (hypertension) Qualifiers: Hypertension type: essential hypertension Qualified Code(s): I10 - Essential (primary) hypertension Is this a current diagnosis for this admission?: Yes (4) Syncopal episodes Qualifiers: Syncope type: unspecified Qualified Code(s): R55 - Syncope and collapse Is this a current diagnosis for this admission?: Yes (5) Diastolic CHF Qualifiers: Congestive heart failure chronicity: acute Qualified Code(s): I50.31 - Acute diastolic (congestive) heart failure Is this a current diagnosis for this admission?: Yes (6) SOPHY (obstructive sleep apnea) Is this a current diagnosis for this admission?: Yes - Notes Notes: Chest pain: Patient has some typical and atypical features of chest pain. Cardiac enzymes so far has been negative. Electrocardiogram did not show any definitive ST segment changes. Multiple differential diagnoses exist in this patient. In descending order of probability this includes underlying coronary artery disease, gastroesophageal reflux, musculoskeletal pain, referred pain from elsewhere, anxiety panic disorder etc.Patient has significant cardiac risk factors, which indicates that there is a intermediate probability of chest discomfort coming from underlying CAD. Patient having nuclear stress test, the stress part performed today. Results are pending at the time of dictation. For risk evaluation, patient is also being scheduled for a 2-D echocardiogram. Patient questions were answered. Hyperlipidemia: LDL goal is less than 70. Recommend statin therapy at least intermediate or high dose, of high potency status. Periodic lipid panel and liver panel is indicated. Patient to report any significant muscle discomfort or other side effects. Hypertension: Reasonably well controlled. Blood pressure goal in this patient is 135/85 or less. This was discussed with the patient. Currently blood pressure under reasonable control. Better medication for this patient are STALIN inhibitor/ARB/beta reece etc. discussed side effects of uncontrolled hypertension and also severe hypotension. Syncope: The cause is undetermined at this time. There could be multiple differential diagnosis. This includes cardiac arrhythmia in this patient's age group, hypotension secondary to orthostasis, seizure disorder, hypoglycemia et cetera. Both kendall and tachyarrhythmias are possible. Patient will benefit from cardiac monitoring during this admission. May need to consider outpatient cardiac monitoring using mobile cardiac awake overnight monitor if clinically indicated. Sleep apnea obstructive: This is suspect that based on patient's symptoms of intermittent snoring, daytime fatigue and somnolence. Patient also has difficulty falling asleep and staying asleep. Patient has obesity and oropharyngeal exams suggest high probability of underlying sleep apnea syndrome. Patient would benefit from a sleep study and this can be scheduled as an outpatient. Diastolic CHF: Currently is stable continue diuretic therapy. - Time Time with patient: Greater than 35 minutes - CODE STATUS was discussed, patient remains full code. Surrogate decision-maker unchanged. Multiple medical problems were addressed. More than 50% of the time spent coordinating care, discussing management plans with involved caregivers. Management plans discussed with involved personnels. Medical decision making was of moderate to high complexity, patient's has multiple comorbidities. Medications reviewed and adjusted accordingly: Yes
[2016-12-16] MEDS ORDERED: AMINOPHYLLINE INJ/PF 250 MG/10 ML SDV IV ONE (10:34)
[2016-12-16] MEDS ORDERED: REGADENOSON INJ 0.4 MG/5 ML DISP.SYRIN IV ONE (10:34)
[2016-12-16] MEDS: RAMIPRIL 10 MG CAPSULE PO SCH (11:25)
[2016-12-16] MEDS: METOPROLOL TARTRATE 25 MG TABLET PO SCH (11:26)
[2016-12-16] MEDS: FUROSEMIDE 20 MG TABLET PO SCH (11:26)
[2016-12-16] MEDS: ENOXAPARIN SODIUM INJ 40 MG/0.4 ML DISP.SYRIN SUBCUT SCH (11:27)
[2016-12-16] MEDS: SITAGLIPTIN PHOSPHATE 50 MG TABLET PO SCH (11:27)
[2016-12-16] MEDS: FLUTICASONE NASAL SPRAY 50 MCG/SPRY 120 SPRAY/16 GM NASL SCH (11:32)
[2016-12-16] MEDS: Liraglutide [Victoza 2-Pak] 1.8 MG SUBCUT SCH (11:33)
--- NOTE | 2016-12-16 12:00 | DRAGON STRESS TEST REPORT ---
INTRAVENOUS LEXISCAN CARDIOLITE STRESS TEST USING SINGLE PHOTON EMMISION COMPUTERIZED TOMOGRAPHIC. DATE OF PROCEDURE: December 16, 2016 INDICATION : Chest pain CARDIAC RISK FACTORS: Diabetes, hypertension, dyslipidemia RESTING EKG: Sinus rhythm with minor nonspecific ST-T wave changes STRESS EKG: No significant changes noted with LexiScan bolus REASON FOR TERMINATION: Protocol. PROCEDURE REPORT: Baseline heart rate 72 beats per minute with blood pressure of 125/76. Patient had no significant complaints. Heart rate at 2 minutes post bolus 97 with a blood pressure of 159/78. 3 minutes post bolus heart rate 83 with blood pressure of 151/81. No significant EKG changes were noted. Patient had no significant complaints during the procedure or postprocedure. Patient injected with Aminophyllin 75 mg at 3 minutes or later after Lexiscan bolus. CONCLUSIONS: Normal EKG and hemodynamic response to IV LexiScan. NUCLEAR DATA: 2 day protocol with rest/stress imaging At rest the patient was given 38.2 millicuries of technetium 99 sestamibi injected intravenously. As per protocol rest gated SPECT images were obtained. Next day the patient was given intravenous LexiScan at a dose of 0.4 mg in 5 mL intravenously, followed by flush with normal saline. Subsequently the stress dose of 42.5 millicuries of technetium 99 sestamibi was injected intravenously. As per protocol stress gated images were obtained. NUCLEAR INTERPRETATION: Both raw and processed data were used for interpretation. Visual, qualitative, computer-generated quantitative data was used. There was good myocardial uptake of technetium compound. Motion artifact and soft tissue attenuations were noted. Increased visceral uptake was noted. No definitive areas of transient perfusion defect noted, except for mild decreased uptake in the mid inferior wall felt to be related to differences in artifact as there were no corresponding wall motion abnormalities. No definitive areas of fixed perfusion defect or scars noted. EKG gated imaging showed LV EF at 54 %, rest and stress gated EF similar visually. T. I D. ratio was 1.04. Lung heart ratio noted to be within normal limits 0.24. No significant extracardiac and abnormal radiotracer activities were noted. RV free wall uptake was noted to be borderline increased. IMPRESSION: Also refer to comments under nuclear interpretation. Also test results needs to be interpreted in the context of pretest probability. 1. There is no definitive scintigraphic evidence of LexiScan induced myocardial ischemia except for a very small area of borderline decreased uptake in the mid inferior wall in the stress imaging felt to be mostly related to differences in artifacts and attenuation, but cannot rule out an area of mild ischemia. Clinical correlation requested. 2. There is no definitive scintigraphic evidence of myocardial infarction/scar. 3. EKG gated imaging shows left ventricular ejection fraction of approximately 54 %. 4. Clinical correlation requested as occasionally single vessel disease or balanced ischemia could be missed. In approximately 10% of the cases Lexiscan may not cause adequate vasodilatory stress. RECOMMENDATIONS: Aggressive risk factor modification, medical therapy. Clinical correlation with echocardiogram derived ejection fraction. Inability to exercise by itself can lead to increased cardiovascular event risks. Consider cardiology consultation and or follow-up if clinically indicated. I AM AVAILABLE FOR CARDIOLOGY CONSULTATION AND FOLLOWUP IF REQUESTED BY GEORGI Thompson M.D., [employer] Consultant bilingual middle school teacher, Board certified in cardiovascular diseases, Nuclear cardiology, Echocardiography Cardiac CT and cardiac MRI Ph. [phone] YANCY
--- NOTE | 2016-12-16 12:07 | XCELERA REPORT ---
[address] [address] Transthoracic Echocardiogram Report Name: KALI MARTINEZ Age: 46 yrs Gender: Female : 1970 Patient Status: Inpatient Patient Location: [address] [place] [address] Study Date: 12/16/2016 10:19 AM Height: 66 in Weight: 338 lb BSA: 2.5 m2 Procedure: A complete two-dimensional transthoracic echocardiogram was performed (2D, M-mode, spectral and color flow Doppler). The study was technically difficult with many images being suboptimal in quality. Reason For Study: CP Ordering Physician: SOHEILA POWELL Performed By: Nely Ross Interpretation Summary The study was technically difficult with many images being suboptimal in quality. The left ventricular ejection fraction is normal. Doppler measurements suggest pseudonormalized left ventricular relaxation, which is associated with grade II/IV or mild to moderate diastolic dysfunction There is mild concentric left ventricular hypertrophy. The right ventricle is mild to moderately dilated. The left atrial size is normal. The right atrium is mild to moderately dilated. There is no mitral valve stenosis. There is a trace amount of mitral regurgitation There is no aortic valve stenosis No aortic regurgitation is present. No tricuspid regurgitation. Tricuspid regurgitation jet envelope not well defined to measure RV systolic pressure accurately. Minimal pericardial effusion. MMode/2D Measurements & Calculations RVDd: 2.5 cm LVIDd: 4.0 cm FS: 30.6 % Ao root diam: 3.1 cm IVSd: 1.4 cm LVIDs: 2.7 cm EDV(Teich): 68.3 ml LVPWd: 1.4 cm ESV(Teich): 28.2 ml Ao root area: 7.7 cm2 EF(Teich): 58.7 % LA dimension: 3.5 cm LVOT diam: 2.4 cm LVOT area: 4.4 cm2 Doppler Measurements & Calculations MV E max manuel: MV P1/2t max manuel: Ao V2 max: LV V1 max P.4 cm/sec 62.0 cm/sec 123.1 cm/sec 3.1 mmHg MV A max manuel: MV P1/2t: 88.6 msec Ao max PG: LV V1 max: 66.2 cm/sec MVA(P1/2t): 2.5 cm2 6.1 mmHg 88.4 cm/sec MV E/A: 0.93 MV dec slope: DEN(V,D): 3.2 cm2 205.0 cm/sec2 PA V2 max: 97.7 cm/sec PA max P.8 mmHg Left Ventricle The left ventricle is grossly normal size. There is mild concentric left ventricular hypertrophy. The left ventricular ejection fraction is normal. Doppler measurements suggest pseudonormalized left ventricular relaxation, which is associated with grade II/IV or mild to moderate diastolic dysfunction. Regional wall motion abnormalities cannot be excluded due to limited visualization. Not all wall segments were well visualized. Right Ventricle The right ventricle is mild to moderately dilated. The right ventricle appears to be hypertrophied. The right ventricular systolic function is normal. Atria The right atrium is mild to moderately dilated. The left atrial size is normal. Interarterial septum not well visualized and not well dopplered. Cannot comment on ASD/PFO presence. Mitral Valve The mitral valve is grossly normal. There is no mitral valve stenosis. There is a trace amount of mitral regurgitation. Aortic Valve The aortic valve is not well visualized secondary to technical limitations. There is no aortic valve stenosis. No aortic regurgitation is present. Tricuspid Valve The tricuspid valve is not well visualized secondary to technical limitations. There is no tricuspid stenosis. No tricuspid regurgitation. Tricuspid regurgitation jet envelope not well defined to measure RV systolic pressure accurately. Pulmonic Valve The pulmonic valve is not well visualized. Great Vessels The aortic root is not well visualized. The inferior vena cava was not well visualized. Effusions Minimal pericardial effusion. : SOHEILA POWELL > Soheila Powell
[2016-12-16 14:50] VITALS: BP 151/81
--- NOTE | 2016-12-16 14:51 | PDOC PROGRESS REPORT ---
Subjective Progress Note for:: 12/16/16 Subjective:: Patient is currently doing fair. Patient's denied any chest pain without any shortness of the breath. Patient having no further episode of the syncopal episode while in the hospital.Patient underwent for the stress test and discussed with the cardiology and suggested patient's current discharge home within no acute finding and the stress test If the patient have a further episode of the chest pain need a cardiac cath Patient's follow-up outpatients cardiology and schedule outpatients neurology for further evaluationsFor the headache Physical Exam Vital Signs: Temp Pulse Resp BP Pulse Ox 98.2 F 82 16 121/50 L 100 12/16/16 07:16 12/16/16 14:00 12/16/16 07:16 12/16/16 07:16 12/16/16 07:16 Intake & Output 12/15/16 12/16/16 12/17/16 06:59 06:59 06:59 Intake Total 2125 1440 Balance 2125 1440 Weight 153.5 kg 153.5 kg General appearance: PRESENT: no acute distress, well-developed, well-nourished Head exam: PRESENT: atraumatic, normocephalic Eye exam: PRESENT: conjunctiva pink, EOMI, PERRLA. ABSENT: scleral icterus Ear exam: PRESENT: normal external ear exam Mouth exam: PRESENT: moist, tongue midline Neck exam: PRESENT: full ROM. ABSENT: carotid bruit, JVD, lymphadenopathy, thyromegaly Respiratory exam: PRESENT: clear to auscultation nelson Cardiovascular exam: PRESENT: RRR. ABSENT: diastolic murmur, rubs, systolic murmur Pulses: PRESENT: normal dorsalis pedis pul, +2 pedal pulses bilateral Vascular exam: PRESENT: normal capillary refill GI/Abdominal exam: PRESENT: normal bowel sounds, soft. ABSENT: distended, guarding, mass, organolmegaly, rebound, tenderness Rectal exam: PRESENT: deferred Neurological exam: PRESENT: alert, awake, oriented to person, oriented to place , oriented to time, oriented to situation, CN II-XII grossly intact. ABSENT: motor sensory deficit Psychiatric exam: PRESENT: appropriate affect, normal mood. ABSENT: homicidal ideation, suicidal ideation Skin exam: PRESENT: dry, intact, warm. ABSENT: cyanosis, rash Results Laboratory Results: 12/13/16 12/13/16 12/13/16 12:30 12:30 18:45 Creatine Kinase 72 76 CK-MB (CK-2) Troponin I < 0.012 12/13/16 12/14/16 12/14/16 18:45 00:41 00:41 Creatine Kinase 67 CK-MB (CK-2) 0.55 0.49 Troponin I < 0.012 < 0.012 Impressions: Chest X-Ray 12/13/16 05:04 IMPRESSION: No acute cardiopulmonary findings. Assessment & Plan - Diagnosis (1) Chest pain Qualifiers: Chest pain type: unspecified Qualified Code(s): R07.9 - Chest pain, unspecified Is this a current diagnosis for this admission?: Yes Plan: Patient stress testing so far so negative and patient's discharge home as per cardiology discussions and follow outpatient (2) HLD (hyperlipidemia) Qualifiers: Hyperlipidemia type: unspecified Qualified Code(s): E78.5 - Hyperlipidemia , unspecified Is this a current diagnosis for this admission?: Yes Plan: Continues current medications (3) HTN (hypertension) Qualifiers: Hypertension type: essential hypertension Qualified Code(s): I10 - Essential (primary) hypertension Is this a current diagnosis for this admission?: Yes Plan: Currently well under control (4) Diastolic CHF Qualifiers: Congestive heart failure chronicity: acute Qualified Code(s): I50.31 - Acute diastolic (congestive) heart failure Is this a current diagnosis for this admission?: Yes Plan: Currently all stable echocardiogram per cardiology (5) Diabetes mellitus type 2 in obese Is this a current diagnosis for this admission?: Yes Plan: Continues current medications (6) Morbid obesity Is this a current diagnosis for this admission?: Yes Plan: Discussed with her diet and exercise (7) SOPHY (obstructive sleep apnea) Is this a current diagnosis for this admission?: Yes Plan: Uses CPAP machine (8) Syncopal episodes Qualifiers: Syncope type: unspecified Qualified Code(s): R55 - Syncope and collapse Is this a current diagnosis for this admission?: Yes Plan: All cardiac workup is negative - Time Time Spent with patient: 15-24 minutes Medications reviewed and adjusted accordingly: Yes Anticipated discharge: Home Within: Other - Plan Summary Plan Summary: Plan to discharge home today the patient's follow-up outpatients for further evaluations
== END 2016-12-16 15:09 | disposition home or self-care (01) ==
LOC: ER 05:02 → UNDOADMOB 08:00 → EH 08:00 → 3N 08:06 → 4S 10:21 → EH 10:21 → 4S 14:12 → 3N 14:12
PROVIDERS: ADMIT Family Medicine; ATTEND Family Medicine
DX: R07.89 Other chest pain (principal); E78.5 Hyperlipidemia, unspecified; I11.0 Hypertensive heart disease with heart failure; I50.31 Acute diastolic (congestive) heart failure; E11.9 Type 2 diabetes mellitus without complications; E66.01 Morbid (severe) obesity due to excess calories; G47.33 Obstructive sleep apnea (adult) (pediatric); R55 Syncope and collapse; R51 Headache; J34.89 Other specified disorders of nose and nasal sinuses; Z90.10 Acquired absence of unspecified breast and nipple; Z82.49 Family history of ischemic heart disease and other diseases of the circulatory system; Z79.84 Long term (current) use of oral hypoglycemic drugs; Z79.899 Other long term (current) drug therapy; Z68.43 Body mass index [BMI] 50.0-59.9, adult
CPT/HCPCS: 93005 ×2; 99285; 36415; 82553 ×2; 82962 ×4; 82550 ×2; 85025; 85610; 85730; 80053; 84484 ×2; 93306; 93017; 71010; 78452; 93010 ×2; G0378 ×5; A9500; J2785; J3490 ×21; J1650 ×4; J0280; Q9969

== ENCOUNTER → 2017-01-06 | Outpatient (CLI) | payer MEDICAID ==
--- NOTE | 2017-01-06 17:48 | WOMENS IMAGING REPORT ---
EXAM DESCRIPTION: BILAT DIAGNOSTIC MAMMO W/CAD; U/S BREAST UNILATERAL, COMPL COMPLETED DATE/TIME: 01/06/2017 2:26 pm; 01/06/2017 3:05 pm REASON FOR STUDY: UNSPECIFIED LUMP IN BREAST; N63; LEFT BREAST LUMP N63 N63 UNSPECIFIED LUMP IN MARYELLEN AST * DO NOT USE * COMPARISON: Mammograms dating back to 2011 TECHNIQUE: Standard craniocaudal and mediolateral oblique views of each breast recorded using digita l acquisition. Additional left breast 90 mediolateral view. Additional cone compression left breast lower half. B ilateral exaggerated craniocaudad views. Left breast ultrasound. LIMITATIONS: None. FINDINGS: RIGHT BREAST MASSES: No suspicious masses. CALCIFICATIONS: No new or suspicious calcifications. ARCHITECTURAL DISTORTION: None. DEVELOPING DENSITY: None. ASYMMETRY: None noted. OTHER: No other significant findings. LEFT BREAST MASSES: No suspicious masses. CALCIFICATIONS: No new or suspicious calcifications. ARCHITECTURAL DISTORTION: None. DEVELOPING DENSITY: None. ASYMMETRY: None noted. OTHER: No other significant finding. Read with the assistance of CAD: .[facility] - R2 Cenova Version 1.3 .[facility] Imaging - R2 Cenova Version 1.3 .[facility] - R2 Cenova Version 2.4 .[facility] - R2 Cenova Version 2.4 .[facility] - R2 Maintenance Representative Version 9.2 Left whole breast ultrasound: Patient indicates a palpable abnormality left breast 5 o'clock position. Ultrasound of this area dem onstrates no discrete cystic or solid lesions. There is a partially thrombosed vein in the area of p alpable abnormality. IMPRESSION: No mammographic evidence for malignancy right breast. No mammographic or sonographic evidence for malignancy left breast. Palpable abnormality correlates with a partially thrombosed superficial vein at the 5 o'clock position. BREAST DENSITY: a. The breasts are almost entirely fatty. BIRAD: 2 Benign findings. RECOMMENDATION: RECOMMENDED FOLLOW UP: Please continue yearly bilateral screening mammography in Dec. Consider tomosynthesis. SPECIFIC INTERVENTION/IMAGING/CONSULTATION RECOMMENDED:No additional intervention/ imaging/consultati on needed at this time. COMMUNICATION:Patient notified by letter COMMENT: The patient has been notified of the results by letter per MQSA requirements. Additional no tification policies are in place for contacting patient with suspicious or incomplete findings. Quality ID #[id number]: The [employer] recommends an annual screening mammogram for women aged 40 years or over. This facility utilizes a reminder system to ensure that all patients receive reminder letters, and/or direct phone calls for appointments. This includes reminders for routine scr eening mammograms, diagnostic mammograms, or other Breast Imaging Interventions when appropriate. Th is patient will be placed in the appropriate reminder system. The [employer] (ACR) has developed recommendations for screening MRI of the breast s in certain patient populations, to be used in conjunction with mammography. Breast MRI surveillanc e may be appropriate for women with more than 20% lifetime risk of developing breast cancer as deter mined by genetic testing, significant family history of the disease, or history of mantle radiation f or Hodgkins Disease. ACR Practice Guidelines 2008. TECHNICAL DOCUMENTATION: FINDING NUMBER: (1) ASSESSMENT: (1) JOB ID: [id number] [employer]- All Rights Reserved
--- NOTE | 2017-01-06 17:48 | WOMENS IMAGING REPORT ---
EXAM DESCRIPTION: BILAT DIAGNOSTIC MAMMO W/CAD; U/S BREAST UNILATERAL, COMPL COMPLETED DATE/TIME: 01/06/2017 2:26 pm; 01/06/2017 3:05 pm REASON FOR STUDY: UNSPECIFIED LUMP IN BREAST; N63; LEFT BREAST LUMP N63 N63 UNSPECIFIED LUMP IN MARYELLEN AST * DO NOT USE * COMPARISON: Mammograms dating back to 2011 TECHNIQUE: Standard craniocaudal and mediolateral oblique views of each breast recorded using digita l acquisition. Additional left breast 90 mediolateral view. Additional cone compression left breast lower half. B ilateral exaggerated craniocaudad views. Left breast ultrasound. LIMITATIONS: None. FINDINGS: RIGHT BREAST MASSES: No suspicious masses. CALCIFICATIONS: No new or suspicious calcifications. ARCHITECTURAL DISTORTION: None. DEVELOPING DENSITY: None. ASYMMETRY: None noted. OTHER: No other significant findings. LEFT BREAST MASSES: No suspicious masses. CALCIFICATIONS: No new or suspicious calcifications. ARCHITECTURAL DISTORTION: None. DEVELOPING DENSITY: None. ASYMMETRY: None noted. OTHER: No other significant finding. Read with the assistance of CAD: .[facility] - R2 Cenova Version 1.3 .[facility] Imaging - R2 Cenova Version 1.3 .[facility] - R2 Cenova Version 2.4 .[facility] - R2 Cenova Version 2.4 .[facility] - R2 Manufacturing Automation Engineer Version 9.2 Left whole breast ultrasound: Patient indicates a palpable abnormality left breast 5 o'clock position. Ultrasound of this area dem onstrates no discrete cystic or solid lesions. There is a partially thrombosed vein in the area of p alpable abnormality. IMPRESSION: No mammographic evidence for malignancy right breast. No mammographic or sonographic evidence for malignancy left breast. Palpable abnormality correlates with a partially thrombosed superficial vein at the 5 o'clock position. BREAST DENSITY: a. The breasts are almost entirely fatty. BIRAD: 2 Benign findings. RECOMMENDATION: RECOMMENDED FOLLOW UP: Please continue yearly bilateral screening mammography in Dec. Consider tomosynthesis. SPECIFIC INTERVENTION/IMAGING/CONSULTATION RECOMMENDED:No additional intervention/ imaging/consultati on needed at this time. COMMUNICATION:Patient notified by letter COMMENT: The patient has been notified of the results by letter per MQSA requirements. Additional no tification policies are in place for contacting patient with suspicious or incomplete findings. Quality ID #[id number]: The [employer] recommends an annual screening mammogram for women aged 40 years or over. This facility utilizes a reminder system to ensure that all patients receive reminder letters, and/or direct phone calls for appointments. This includes reminders for routine scr eening mammograms, diagnostic mammograms, or other Breast Imaging Interventions when appropriate. Th is patient will be placed in the appropriate reminder system. The [employer] (ACR) has developed recommendations for screening MRI of the breast s in certain patient populations, to be used in conjunction with mammography. Breast MRI surveillanc e may be appropriate for women with more than 20% lifetime risk of developing breast cancer as deter mined by genetic testing, significant family history of the disease, or history of mantle radiation f or Hodgkins Disease. ACR Practice Guidelines 2008. TECHNICAL DOCUMENTATION: FINDING NUMBER: (1) ASSESSMENT: (1) JOB ID: [id number] [employer]- All Rights Reserved
== END ==
LOC: WI 13:10
PROVIDERS: ATTEND Physician Assistant
DX: N63.20 Unspecified lump in the left breast, unspecified quadrant (principal)
CPT/HCPCS: 76641; G0204; 77066

== ENCOUNTER 2017-07-25 11:44 | Emergency (ER) | payer MEDICAID ==
[2017-07-25 11:58] VITALS: BP 172/94
--- NOTE | 2017-07-25 12:01 | ER Document Report ---
HPI - HPI Patient complains to provider of: DENTAL PAIN Onset: This morning Onset/Duration: Sudden Severity: Severe Pain Level: 5 Context: Patient presents to the emergency department with complaints of severe dental pain that started early this morning. She denies trauma. She reports she has other health issues and has been ignoring her dental care. She denies fever vomiting diarrhea. Patient can open her mouth wide. No obvious dental abscess noted. She denies fever vomiting diarrhea. Reports her tooth pain feels better when she holds room temperature water in her mouth. 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 Similar symptoms previously: Yes Recently seen / treated by doctor: No - REPRODUCTIVE Reproductive: DENIES: : Past Medical History - General Information source: Patient - Social History Smoking Status: Unknown if Ever Smoked Cigarette use (# per day): No Frequency of alcohol use: None Drug Abuse: None Family History: CAD, Hypertension Patient has suicidal ideation: No Patient has homicidal ideation: No - Past Medical History Cardiac Medical History: Reports: Hx Congestive Heart Failure, Hx Hypertension Denies: Hx Heart Attack Pulmonary Medical History: Endocrine Medical History: Reports: Hx Diabetes Mellitus Type 2 Renal/ Medical History: Denies: Hx Peritoneal Dialysis Malignancy Medical History: GI Medical History: Reports: Hx Gastroesophageal Reflux Disease, Hx Irritable Bowel Musculoskeltal Medical History: Reports Hx Musculoskeletal Deformity, Reports Hx Musculoskeletal Trauma Psychiatric Medical History: Reports: Hx Anxiety, Hx Depression Infectious Medical History: Past Surgical History: Reports: Hx Breast Surgery - breast reduction, biopsy, Hx Mastectomy, Hx Rectal Surgery - Fistula, hemorrhoids, Hx Tubal Ligation - Immunizations Immunizations up to date: Yes Hx Diphtheria, Pertussis, Tetanus Vaccination: Yes Vertical Provider Document - CONSTITUTIONAL Agree With Documented VS: Yes Exam Limitations: No Limitations General Appearance: WD/WN, Mild Distress - C/O Severe dental pain - INFECTION CONTROL TRAVEL OUTSIDE OF THE [place] IN LAST 30 DAYS: No - HEENT HEENT: Atraumatic, Normocephalic. negative: Conjuctival Injection, Pharyngeal Exudate, Pharyngeal Erythema Mouth Diagram: 1 - reports severe pain, no obvious abscess, no pustule, no erythema/no swelling, opens mouth wide, no trismus, clear voice, no ludwigs - NECK Neck: Normal Inspection, Supple. negative: Lymphadenopathy-Left, Lymphadenopathy-Right - RESPIRATORY Respiratory: Breath Sounds Normal, No Respiratory Distress - CARDIOVASCULAR Cardiovascular: Regular Rate - MUSCULOSKELETAL/EXTREMETIES Musculoskeletal/Extremeties: LYNETTE RIBERA - NEURO Level of Consciousness: Awake, Alert, Appropriate Motor/Sensory: No Motor Deficit - DERM Integumentary: Warm, Dry Course - Re-evaluation Re-evalutation: 07/25/17 12:14 Patient reports that her dentist is smiling signature. She will follow-up with them on Thursday. - Vital Signs Vital signs: Temp Pulse Resp BP Pulse Ox 74 18 172/94 H 96 07/25/17 11:56 07/25/17 11:56 07/25/17 11:56 07/25/17 11:56 Discharge - Discharge Clinical Impression: Pain, dental Condition: Stable Disposition: HOME, SELF-CARE Instructions: Clindamycin ([facility]), Oral Narcotic Medication ([facility]), Toothache ([facility] ) Additional Instructions: *You have been evaluated for dental pain *Take medications as prescribed *Follow up with dentist Thursday *Return to ED for worsening condition, changes, needs Prescriptions: Clindamycin HCl 300 mg PO QID #20 capsule Forms: Elevated Blood Pressure
[2017-07-25] MEDS ORDERED: HYDROCODONE/ACETAMINOPHEN 5-325 MG (6 TAB/ER DISP) PO PRN (12:08)
[2017-07-25] MEDS ORDERED: CLINDAMYCIN HCL 150 MG CAPSULE PO ONE (12:09)
== END 2017-07-25 12:28 | disposition home or self-care (01) ==
LOC: ER 11:44
DX: K08.89 Other specified disorders of teeth and supporting structures (principal); I10 Essential (primary) hypertension; E11.9 Type 2 diabetes mellitus without complications
CPT/HCPCS: 99282; J3490

== ENCOUNTER 2017-08-15 13:40 | Observation (INO) | payer MEDICAID ==
[2017-08-15] MEDS ORDERED: NITROGLYCERIN 0.4 MG/TAB 25 TAB/BOTTLE SL PRN (14:34)
--- NOTE | 2017-08-15 14:37 | ER Document Report ---
ED Medical Screen (RME) - General Chief Complaint: Chest Pain Stated Complaint: CHEST PAIN, LIGHTHEADED Time Seen by Provider: 08/15/17 14:23 Notes: 47-year-old obese diabetic female with congestive heart failure presents emergency department complaining of headache, chest pain, pressure in her chest when she takes a deep breath and swelling in her legs. States that she has had some swelling in her left arm for the past several days but when she saw her primary care physician nothing was changed, states that today around 910 this morning she developed moderate headache followed by moderate chest pressure that she feels like maybe her congestive heart failure. States she takes 20 mg of Lasix once a day, has not missed any dosages. Denies any dietary indiscretions or increased sodium intake. TRAVEL OUTSIDE OF THE [place] IN LAST 30 DAYS: No - Related Data Allergies/Adverse Reactions: aspirin Allergy (Severe, Verified 08/15/17 13:41) Anaphylaxis ibuprofen [Ibuprofen] Allergy (Severe, Verified 08/15/17 13:41) Anaphylaxis ciprofloxacin [From Cipro] Allergy (Intermediate, Verified 08/15/17 13:41) itching egg [Egg] Allergy (Verified 08/15/17 13:41) Anaphylaxis Penicillins Allergy (Verified 08/15/17 13:41) Anaphylaxis metoclopramide [From Reglan] Adverse Reaction (Severe, Verified 08/15/17 13:41) Past Medical History - General Information source: Patient - Social History Chew tobacco use (# tins/day): No Frequency of alcohol use: None Drug Abuse: None - Past Medical History Cardiac Medical History: Reports: Hx Congestive Heart Failure, Hx Hypertension Denies: Hx Heart Attack Pulmonary Medical History: Endocrine Medical History: Reports: Hx Diabetes Mellitus Type 2 Renal/ Medical History: Denies: Hx Peritoneal Dialysis Malignancy Medical History: GI Medical History: Reports: Hx Gastroesophageal Reflux Disease, Hx Irritable Bowel Musculoskeltal Medical History: Reports Hx Musculoskeletal Deformity, Reports Hx Musculoskeletal Trauma Psychiatric Medical History: Reports: Hx Anxiety, Hx Depression Infectious Medical History: Past Surgical History: Reports: Hx Breast Surgery - breast reduction, biopsy, Hx Mastectomy, Hx Rectal Surgery - Fistula, hemorrhoids, Hx Tubal Ligation - Immunizations Immunizations up to date: Yes Hx Diphtheria, Pertussis, Tetanus Vaccination: Yes Review of Systems - Review of Systems Constitutional: No symptoms reported EENT: No symptoms reported Cardiovascular: See HPI Respiratory: See HPI Gastrointestinal: No symptoms reported Musculoskeletal: See HPI, Other - Left arm swelling. Neurological/Psychological: See HPI, Headaches Physical Exam - Vital signs Vitals: Temp Pulse Resp BP Pulse Ox 98.0 F 79 17 147/85 H 95 08/15/17 13:49 08/15/17 13:49 08/15/17 13:49 08/15/17 13:49 08/15/17 13:49 Interpretation: Hypertensive - General General appearance: Appears well Notes: Appears fatigued and annoyed. Obese - HEENT Head: Normocephalic, Atraumatic Eyes: Normal Extraocular movements intact: Yes Pupils: PERRL Mucous membranes: Moist - Respiratory Respiratory status: No respiratory distress Chest status: Nontender Breath sounds: Other - Trace crackles left lower lobe. Chest palpation: Normal - Cardiovascular Rhythm: Regular Heart sounds: Normal auscultation Murmur: No Normal capillary refill: Yes - Extremities Notes: No edema. - Skin Skin Temperature: Warm Skin Moisture: Dry Skin Color: Normal Course - Vital Signs Vital signs: Temp Pulse Resp BP Pulse Ox 98.0 F 79 17 147/85 H 95 08/15/17 13:49 08/15/17 13:49 08/15/17 13:49 08/15/17 13:49 08/15/17 13:49
--- NOTE | 2017-08-15 15:16 | RADIOLOGY REPORT (SQ) ---
EXAM DESCRIPTION: CHEST SINGLE VIEW COMPLETED DATE/TIME: 08/15/2017 3:08 pm REASON FOR STUDY: CP, SOB COMPARISON: 04/04/2016. EXAM PARAMETERS: NUMBER OF VIEWS: One view. TECHNIQUE: Single frontal radiographic view of the chest acquired. RADIATION DOSE: NA LIMITATIONS: None. FINDINGS: LUNGS AND PLEURA: No opacities, masses or pneumothorax. No pleural effusion. MEDIASTINUM AND HILAR STRUCTURES: No masses. Contour normal. HEART AND VASCULAR STRUCTURES: Heart normal in size. Normal vasculature. BONES: No acute findings. HARDWARE: None in the chest. OTHER: No other significant finding. IMPRESSION: NO ACUTE RADIOGRAPHIC FINDING IN THE CHEST. TECHNICAL DOCUMENTATION: JOB ID: [id number] [employer]- All Rights Reserved Reading location - IP/workstation name: [email or web address]
--- NOTE | 2017-08-15 15:23 | ER Document Report ---
ED General - General Chief Complaint: Chest Pain Stated Complaint: CHEST PAIN, LIGHTHEADED Time Seen by Provider: 08/15/17 14:23 Mode of Arrival: Ambulatory Information source: Patient Notes: This is a 47-year-old female with a history of CHF, gastroparesis, GERD, morbid obesity who presents to the emergency room with nonradiating retrosternal chest discomfort. TRAVEL OUTSIDE OF THE [place] IN LAST 30 DAYS: No - HPI Onset: Just prior to arrival Onset/Duration: Gradual Quality of pain: Other Severity: Mild Pain Level: 1 - Tightness Associated symptoms: Other - Chest tightness. denies: Fever, Shortness of breath Exacerbated by: Denies Relieved by: Denies Similar symptoms previously: No Recently seen / treated by doctor: No - Related Data Allergies/Adverse Reactions: aspirin Allergy (Severe, Verified 08/15/17 13:41) Anaphylaxis ibuprofen [Ibuprofen] Allergy (Severe, Verified 08/15/17 13:41) Anaphylaxis ciprofloxacin [From Cipro] Allergy (Intermediate, Verified 08/15/17 13:41) itching egg [Egg] Allergy (Verified 08/15/17 13:41) Anaphylaxis Penicillins Allergy (Verified 08/15/17 13:41) Anaphylaxis metoclopramide [From Reglan] Adverse Reaction (Severe, Verified 08/15/17 13:41) Past Medical History - General Information source: Patient - Social History Smoking Status: Current Every Day Smoker Cigarette use (# per day): Yes - 1 pack per day smoker Chew tobacco use (# tins/day): No Frequency of alcohol use: None Drug Abuse: None Lives with: Family Family History: CAD, Hypertension Patient has suicidal ideation: No Patient has homicidal ideation: No - Past Medical History Cardiac Medical History: Reports: Hx Congestive Heart Failure, Hx Hypertension Denies: Hx Heart Attack Pulmonary Medical History: Endocrine Medical History: Reports: Hx Diabetes Mellitus Type 2 Renal/ Medical History: Denies: Hx Peritoneal Dialysis Malignancy Medical History: GI Medical History: Reports: Hx Gastroesophageal Reflux Disease, Hx Irritable Bowel Musculoskeltal Medical History: Reports Hx Musculoskeletal Deformity, Reports Hx Musculoskeletal Trauma Psychiatric Medical History: Reports: Hx Anxiety, Hx Depression Infectious Medical History: Past Surgical History: Reports: Hx Breast Surgery - breast reduction, biopsy, Hx Mastectomy, Hx Rectal Surgery - Fistula, hemorrhoids, Hx Tubal Ligation - Immunizations Immunizations up to date: Yes Hx Diphtheria, Pertussis, Tetanus Vaccination: Yes Review of Systems - Review of Systems Constitutional: denies: Chills, Fever EENT: No symptoms reported Cardiovascular: See HPI, Chest pain Respiratory: No symptoms reported Gastrointestinal: No symptoms reported Genitourinary: No symptoms reported Female Genitourinary: No symptoms reported Musculoskeletal: No symptoms reported Skin: No symptoms reported Hematologic/Lymphatic: No symptoms reported Neurological/Psychological: No symptoms reported Physical Exam - Vital signs Vitals: Temp Pulse Resp BP Pulse Ox 98.0 F 79 17 147/85 H 95 08/15/17 13:49 08/15/17 13:49 08/15/17 13:49 08/15/17 13:49 08/15/17 13:49 Notes: Physical exam: GENERAL: 87-year-old female, alert and oriented 3, no acute distress HEAD: Atraumatic, normocephalic. EYES: Pupils equal round and reactive to light, extraocular movements intact, sclera anicteric, conjunctiva are normal. ENT: TMs normal, nares patent, oropharynx clear without exudates. Moist mucous membranes. NECK: Normal range of motion, supple without obvious mass or JVD. LUNGS: Breath sounds clear to auscultation bilaterally and equal. No wheezes rales or rhonchi. HEART: Regular rate and rhythm without murmurs, rubs or gallops. ABDOMEN: Soft, normoactive bowel sounds. No tenderness to palpation. No guarding, no rebound. No masses appreciated. EXTREMITIES: Normal range of motion, no pitting or edema. No clubbing or cyanosis. NEUROLOGICAL: Cranial nerves II through XII grossly intact. Normal speech, moving all extremities. PSYCH: Normal mood, normal affect. SKIN: Warm, Dry, normal turgor, no rashes or lesions noted. Course - Re-evaluation Re-evalutation: 08/15/17 17:07 Note currently the patient's chest pain is resolved. She is requesting food ( complaining about a sandwich that is already there). Given her risk factors and her chest tightness responding to nitroglycerin, the plan will be for her to be brought into the hospital for further observation and serial cardiac enzymes. - Vital Signs Vital signs: Temp Pulse Resp BP Pulse Ox 97.9 F 95 16 130/79 H 97 08/15/17 18:01 08/15/17 18:53 08/15/17 18:01 08/15/17 18:01 08/15/17 18:01 - Laboratory Result Diagrams: 08/15/17 15:00 08/15/17 16:00 Laboratory results interpreted by me: 08/15/17 08/15/17 15:00 16:00 RBC 5.40 H RDW 14.5 H Carbon Dioxide 31 H Glucose 168 H - Diagnostic Test Radiology reviewed: Image reviewed, Reports reviewed - Test x-ray showed no infiltrates - EKG Interpretation by Me Rate: Normal Rhythm: NSR - EKG shows normal sinus rhythm with a ventricular rate of 76, no acute ST-T wave changes compared to EKG December 15, 2016 Discharge - Discharge Clinical Impression: Chest pain Condition: Stable Disposition: ADMITTED OBSERVATION Admitting Provider: [facility] Admitted: Telemetry
[2017-08-15 15:29] LABS: ABSOLUTE EOSINOPHILS # (AUTO) 0.2 10^3/uL (0.0-0.6); ABSOLUTE LYMPHOCYTES (AUTO) 2.2 10^3/uL (0.5-4.7); ABSOLUTE MONOCYTES (AUTO) 0.5 10^3/uL (0.1-1.4); ABSOLUTE NEUT (AUTO) 4.4 10^3/uL (1.7-8.2); BASOPHILS % (AUTO) 0.6 % (0-2); EOSINOPHILS % (AUTO) 2.3 % (0-6); HEMATOCRIT 46.1 % (36.0-47.0); HEMOGLOBIN 15.2 g/dL (12.0-15.5); LYMPHOCYTES % (AUTO) 30.4 % (13-45); MEAN CORPUSCULAR HEMOGLOBIN 28.1 pg (27.0-33.4); MEAN CORPUSCULAR HGB CONC 32.9 g/dL (32.0-36.0); MEAN CORPUSCULAR VOLUME 85 fl (80-97); MONOCYTES % (AUTO) 6.3 % (3-13); PLATELET COUNT 232 10^3/uL (150-450); RED CELL DISTRIBUTION WIDTH 14.5 % (11.5-14.0); SEGMENTED NEUTROPHILS % (AUTO) 60.4 % (42-78); TOTAL CELLS COUNTED % (AUTO) 100 %; WHITE BLOOD COUNT 7.3 10^3/uL (4.0-10.5)
[2017-08-15] MEDS ORDERED: NITROGLYCERIN 2% OINTMENT 1 GM PACKET TP ONE (16:16)
[2017-08-15] MEDS ORDERED: MORPHINE SULFATE 10 MG/ML INJ IV ONE (16:17)
[2017-08-15 16:22] LABS: ALANINE AMINOTRANSFERASE 33 U/L (9-52); ALBUMIN 3.9 g/dL (3.5-5.0); ALKALINE PHOSPHATASE 96 U/L (38-126); ANION GAP 10 (5-19); ASPARTATE AMINO TRANSFERASE 20 U/L (14-36); BILIRUBIN,DIRECT 0.3 mg/dL (0.0-0.4); BILIRUBIN,TOTAL 0.6 mg/dL (0.2-1.3); BLOOD UREA NITROGEN 10 mg/dL (7-20); CALCIUM 9.2 mg/dL (8.4-10.2); CARBON DIOXIDE 31 mmol/L (22-30); CHLORIDE 103 mmol/L (98-107); CREATINE KINASE 77 U/L (30-135); GLUCOSE 168 mg/dL (75-110); POTASSIUM 4.6 mmol/L (3.6-5.0); SODIUM 144.3 mmol/L (137-145); TOTAL PROTEIN 7.2 g/dL (6.3-8.2)
[2017-08-15 16:34] LABS: CREATINE KINASE MB 0.57 ng/mL (<4.55); NT PRO BNP 63 pg/mL (<125); TROPONIN I < 0.012 ng/mL
[2017-08-15] MEDS ORDERED: ONDANSETRON HCL INJ/PF 4 MG/2 ML SDV IV ONE (16:37)
[2017-08-15] MEDS ORDERED: ACETAMINOPHEN 325 MG TABLET PO PRN (17:10)
[2017-08-15] MEDS ORDERED: INSULIN LISPRO 100 UNIT/ML 3 ML VIAL SUBCUT PRN (17:18)
[2017-08-15] MEDS ORDERED: DEXTROSE 40% GEL 15 GM TUBE PO PRN ×2 (17:18)
[2017-08-15] MEDS ORDERED: GLUCAGON,HUMAN RECOMB 1 MG INJ IM PRN (17:18)
[2017-08-15] MEDS ORDERED: DEXTROSE 50%-WATER 25 GM/50 ML DISP.SYRIN IV PRN ×2 (17:18)
[2017-08-15] MEDS ORDERED: MAG HYDROX/AL HYDROX/SIMETH SUSP 30 ML UDCUP PO ONE (17:47)
[2017-08-15] MEDS ORDERED: LIDOCAINE 2% VISCOUS SOLN 20 ML UDCUP PO ONE (17:47)
--- NOTE | 2017-08-15 19:03 | RADIOLOGY REPORT (SQ) ---
EXAM DESCRIPTION: CTA CHEST COMPLETED DATE/TIME: 08/15/2017 6:46 pm REASON FOR STUDY: chest pain COMPARISON: Chest CTs dated 04/10/2015 and 07/20/2010 chest radiograph dated 08/15/2017 TECHNIQUE: CT scan of the chest performed using helical scanning technique with dynamic intravenous contrast injection. Images reviewed with lung, soft tissue and bone windows. Reconstructed coronal and sagittal MPR images reviewed. Additional 3 dimensional post-processing performed to develop Maximal Intensity Projection images (LA P). All images stored on PACS. All CT scanners at this facility use dose modulation, iterative reconstruction, and/or weight based d osing when appropriate to reduce radiation dose to as low as reasonably achievable (ALARA). [facility]: Dose Right [facility]: CareDose [facility]: Dose Right [facility]: Teradose 4D [facility]: Rosum CONTRAST TYPE AND DOSE: contrast/concentration: Isovue 370.00 mg/ml; Total Contrast Delivered: 86.0 ml; Total Saline Delivered: 110.2 ml Contrast bolus optimized for the pulmonary arteries. Not diagnostic for the aorta. RENAL FUNCTION: BUN 10; creatinine 0.75 RADIATION DOSE: CT Rad equipment meets quality standard of care and radiation dose reduction techniq ues were employed. CTDIvol: 41.8 - 49.6 mGy. DLP: 1577 mGy-cm. . LIMITATIONS: None. FINDINGS: LUNGS AND PLEURA: Subtle ground-glass opacities are seen within the right apical lung. No pleural effusions. No pneumothorax. AORTA AND GREAT VESSELS: No aneurysm. Contrast bolus not optimized for the aorta. HEART: No pericardial effusion. No significant coronary artery calcifications. PULMONARY ARTERIES: No emboli visualized in the main pulmonary arteries or the segmental branches. HILAR AND MEDIASTINAL STRUCTURES: No identified masses or abnormal nodes. HARDWARE: None in the chest. UPPER ABDOMEN: No significant findings. Limited exam. THYROID AND OTHER SOFT TISSUES: No masses. No adenopathy. BONES: And age-indeterminate fracture is seen of the tip of the left 10th rib. 3D MIPS: Confirm above findings. OTHER: No other significant finding. IMPRESSION: 1. No pulmonary emboli. 2. Subtle ground-glass opacities involving right upper lobe are nonspecific; given unifocal distribu tion, consider atypical pneumonitis. 3. Left 10th rib age-indeterminate fracture. COMMENT: Quality ID # [id number]: Final reports with documentation of one or more dose reduction techniques (e.g., Automated exposure control, adjustment of the mA and/or kV according to patient size, use of iterative reconstruction technique) TECHNICAL DOCUMENTATION: JOB ID: [id number] [employer]- All Rights Reserved Reading location - IP/workstation name: [email or web address]
[2017-08-15] MEDS ORDERED: SUCRALFATE SUSP 1 GM/10 ML UDCUP PO ONE (19:15)
--- NOTE | 2017-08-15 20:47 | EKG REPORT ---
SEVERITY:- ABNORMAL ECG - SINUS RHYTHM VENTRICULAR PREMATURE COMPLEX PROBABLE LVH WITH SECONDARY REPOL ABNRM : Confirmed by: Soheila Thompson 15-Aug-2017 17:45:29
[2017-08-15] MEDS ORDERED: ATORVASTATIN CALCIUM 20 MG TABLET PO SCH (22:00)
[2017-08-16] MEDS ORDERED: LANSOPRAZOLE 30 MG TAB.RAP.DR PO SCH (06:00)
[2017-08-16] MEDS ORDERED: SUCRALFATE SUSP 1 GM/10 ML UDCUP PO SCH (08:00)
[2017-08-16] MEDS ORDERED: METOPROLOL TARTRATE 25 MG TABLET PO SCH (08:00)
[2017-08-16] MEDS ORDERED: RAMIPRIL 5 MG CAPSULE PO SCH (10:00)
[2017-08-16] MEDS ORDERED: DOCUSATE SODIUM 100 MG CAPSULE PO SCH (10:00)
[2017-08-16] MEDS ORDERED: FLUTICASONE NASAL SPRAY 50 MCG/SPRY 120 SPRAY/16 GM NASL SCH (10:00)
[2017-08-16] MEDS ORDERED: LIRAGLUTIDE SQ SCH (10:00)
[2017-08-16] MEDS ORDERED: ENOXAPARIN SODIUM INJ 40 MG/0.4 ML DISP.SYRIN SUBCUT SCH (10:00)
[2017-08-16] MEDS ORDERED: SITAGLIPTIN PHOSPHATE 50 MG TABLET PO SCH (10:00)
[2017-08-16] MEDS ORDERED: FUROSEMIDE 20 MG TABLET PO SCH (10:00)
--- NOTE | 2017-08-16 10:47 | PDOC H&P ---
History of Present Illness Admission Date/PCP: 08/15/17 17:34 JULIA THOMAS MD Patient complains of: Left-sided chest pain History of Present Illness: KALI MARTINEZ is a 47 year old female This is a 47-year-old female with a significant history of the type 2 diabetes mellitus history of the morbid obesity history of the sleep apnea not using the CPAP and history of the hypertension's hyperlipidemia and a significant history of the gastroparesis, GI issuesRecently see GI at [facility] and a several GI workup done and history of the stress test and echocardiogram was done back in November 2016 was all normal came to the emergency department with a complaint of left-sided pain in the upper extremities since last several days She is currently under a lot of stress due to the upcoming marriage and patients wants to lose the weight Patient initial workup in the emergency department is all stable patient underwent for the CT angiogram which did not show any pulmonary embolism not seeing any coronary calcifications patient was some left 10th rib fracture which patients thought maybe she fell last year and atypical some pneumonitis in the right side of the lung but patient does not have any cough no congestion' s no other symptoms Patient's white count is completely normal patient is afebrile Patient at this point decided to admit in the hospital for the follow to rule out any cardiac issue patients giving the GI cocktail which pretty much all the problems Past Medical History Cardiac Medical History: Reports: Congestive Heart Failure, Hypertension Denies: Myocardial Infarction Pulmonary Medical History: Reports: Sleep Apnea Endocrine Medical History: Reports: Diabetes Mellitus Type 2 Malignancy Medical History: GI Medical History: Reports: Gastroesophageal Reflux Disease Psychiatric Medical History: Reports: Depression Hematology: Reports: Anemia Denies: Hemophilia, Sickle Cell Disease Infectious Medical History: Past Surgical History Past Surgical History: Reports: Mastectomy, Tubal Ligation Social History Lives with: Family Smoking Status: Current Every Day Smoker Frequency of Alcohol Use: None Hx Recreational Drug Use: No Drugs: None Hx Prescription Drug Abuse: No Family History Family History: Reviewed & Not Pertinent, CAD, Hypertension Parental Family History Reviewed: Yes Children Family History Reviewed: Yes Sibling(s) Family History Reviewed.: Yes Medication/Allergy Home Medications: Atorvastatin Calcium [Lipitor 20 mg Tablet] 20 mg PO QHS 12/13/16 Dexlansoprazole [Dexilant 60 mg Capsule] 60 mg PO DAILY 12/13/16 Fluticasone Propionate [Flonase Nasal [place] 50 Mcg/[place] 16 gm] 1 spray NASL DAILY 12/13/16 Furosemide [Lasix 20 mg Tablet] 20 mg PO DAILY 12/13/16 Liraglutide [Victoza 2-Dane] 1.8 ml SQ DAILY 12/13/16 Metoprolol Tartrate [Lopressor 25 mg Tablet] 25 mg PO [id number] 12/13/16 Ramipril [Altace 5 mg Capsule] 10 mg PO DAILY 12/13/16 Sitagliptin Phosphate [Januvia] 100 mg PO DAILY 12/13/16 Docusate Sodium [Colace 100 mg Capsule] 100 mg PO DAILY 08/15/17 Prednisone 10 mg PO DAILY #5 tablet 08/16/17 Sucralfate [Carafate Susp 1 gm/10 ml Udcup] 1 gm PO BIDACBS #600 udc 08/16/17 Allergies/Adverse Reactions: aspirin Allergy (Severe, Verified 08/15/17 13:41) Anaphylaxis ibuprofen [Ibuprofen] Allergy (Severe, Verified 08/15/17 13:41) Anaphylaxis ciprofloxacin [From Cipro] Allergy (Intermediate, Verified 08/15/17 13:41) itching egg [Egg] Allergy (Verified 08/15/17 13:41) Anaphylaxis Penicillins Allergy (Verified 08/15/17 13:41) Anaphylaxis metoclopramide [From Reglan] Adverse Reaction (Severe, Verified 08/15/17 13:41) Review of Systems Constitutional: ABSENT: chills, fever(s), headache(s), weight gain, weight loss Eyes: ABSENT: visual disturbances Ears: ABSENT: hearing changes Cardiovascular: PRESENT: chest pain. ABSENT: dyspnea on exertion, edema, orthropnea, palpitations Respiratory: ABSENT: cough, hemoptysis Gastrointestinal: ABSENT: abdominal pain, constipation, diarrhea, hematemesis, hematochezia, nausea, vomiting Genitourinary: ABSENT: dysuria, hematuria Musculoskeletal: ABSENT: joint swelling Integumentary: ABSENT: rash, wounds Neurological: ABSENT: abnormal gait, abnormal speech, confusion, dizziness, focal weakness, syncope Psychiatric: ABSENT: anxiety, depression, homidical ideation, suicidal ideation Endocrine: ABSENT: cold intolerance, heat intolerance, menstrual abnormalities, polydipsia, polyuria Hematologic/Lymphatic: ABSENT: easy bleeding, easy bruising, lymphadenopathy Physical Exam Vital Signs: Temp Pulse Resp BP Pulse Ox 97.9 F 78 16 124/51 L 96 08/16/17 07:57 08/16/17 07:57 08/16/17 07:57 08/16/17 07:57 08/16/17 07:57 Intake & Output 08/15/17 08/16/17 08/17/17 06:59 06:59 06:59 Intake Total 544 Output Total 400 Balance 144 Weight 150.2 kg General appearance: PRESENT: no acute distress, well-developed, well-nourished Head exam: PRESENT: atraumatic, normocephalic Eye exam: PRESENT: conjunctiva pink, EOMI, PERRLA. ABSENT: scleral icterus Ear exam: PRESENT: normal external ear exam Mouth exam: PRESENT: moist, tongue midline Neck exam: PRESENT: full ROM. ABSENT: carotid bruit, JVD, lymphadenopathy, thyromegaly Respiratory exam: PRESENT: chest wall tenderness, clear to auscultation nelson Cardiovascular exam: PRESENT: RRR. ABSENT: diastolic murmur, rubs, systolic murmur Pulses: PRESENT: normal dorsalis pedis pul, +2 pedal pulses bilateral Vascular exam: PRESENT: normal capillary refill GI/Abdominal exam: PRESENT: normal bowel sounds, soft. ABSENT: distended, guarding, mass, organolmegaly, rebound, tenderness Rectal exam: PRESENT: deferred Extremities exam: ABSENT: pedal edema Musculoskeletal exam: PRESENT: ambulatory Neurological exam: PRESENT: alert, awake, oriented to person, oriented to place , oriented to time, oriented to situation, CN II-XII grossly intact. ABSENT: motor sensory deficit Psychiatric exam: PRESENT: appropriate affect, normal mood. ABSENT: homicidal ideation, suicidal ideation Skin exam: PRESENT: dry, intact, warm. ABSENT: cyanosis, rash Results Laboratory Results: 08/15/17 19:55 Troponin I < 0.012 Impressions: Chest X-Ray 08/15/17 14:34 IMPRESSION: NO ACUTE RADIOGRAPHIC FINDING IN THE CHEST. Chest/Abdomen CTA 08/15/17 17:48 IMPRESSION: 1. No pulmonary emboli. 2. Subtle ground-glass opacities involving right upper lobe are nonspecific; given unifocal distribution, consider atypical pneumonitis. 3. Left 10th rib age-indeterminate fracture. Assessment & Plan - Diagnosis (1) Chest pain Qualifiers: Chest pain type: unspecified Qualified Code(s): R07.9 - Chest pain, unspecified Is this a current diagnosis for this admission?: Yes Plan: Admit the patient and his a telemetry bedConsult the cardiology Discussed with the patient about CT angiogram report patients did not have any sign of any pneumonia and patients have a fall last year which possible may be our tentative fractures Patient is probably to be need a PFT underlying COPD as outpatient (2) Gastroparesis Is this a current diagnosis for this admission?: Yes Plan: Continues to follow with GI at [facility] (3) HLD (hyperlipidemia) Qualifiers: Hyperlipidemia type: unspecified Is this a current diagnosis for this admission?: Yes (4) HTN (hypertension) Qualifiers: Hypertension type: essential hypertension Is this a current diagnosis for this admission?: Yes Plan: Continues current medication (5) Diabetes mellitus type 2 in obese Is this a current diagnosis for this admission?: Yes Plan: Currently stable with current medication (6) Diastolic CHF Qualifiers: Heart failure chronicity: chronic Is this a current diagnosis for this admission?: Yes Plan: Currently on the Lasix (7) SOPHY (obstructive sleep apnea) Is this a current diagnosis for this admission?: Yes Plan: Patient had a sleep study done already have a CPAP but unable to use it due to the claustrophobic (8) Tobacco dependency Is this a current diagnosis for this admission?: Yes Plan: Will give patient nicotine patch discussed with the patient about smoking counseling - Time Time Spent: 30 to 50 Minutes Medications reviewed and adjusted accordingly: Yes Anticipated discharge: Home Within: Other - Inpatient Certification Medical Necessity: Need Close Monitoring Due to Risk of Patient Decompensation 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
--- NOTE | 2017-08-16 10:54 | PDOC DISCHARGE SUMMARY ---
General - Admit/Disc Date/PCP Admission Date/Primary Care Provider: 08/15/17 17:34 JULIA THOMAS MD Discharge Date: 08/16/17 - Discharge Diagnosis (1) Chest pain Is this a current diagnosis for this admission?: Yes Summary: Patient initial cardiac workup is all negative patient CT angiogram is negative for any pulmonary embolism patient is cleared from a cardiology follow-up outpatient Most likely a patient have underlying chest wall tenderness due to the old rib fractures and questionable pneumonitis which patients currently does not have any symptoms will give her some steroid for a few days course (2) Gastroparesis Is this a current diagnosis for this admission?: Yes Summary: We will add the Carafate with the PPI and follow with the GI as usually (3) HLD (hyperlipidemia) Is this a current diagnosis for this admission?: Yes Summary: stable (4) HTN (hypertension) Is this a current diagnosis for this admission?: Yes Summary: Currently well controlled (5) Diabetes mellitus type 2 in obese Is this a current diagnosis for this admission?: Yes Summary: Continues current medication (6) Diastolic CHF Is this a current diagnosis for this admission?: Yes (7) SOPHY (obstructive sleep apnea) Is this a current diagnosis for this admission?: Yes Summary: Patient unable to use the CPAP discussed with the patient and encouraged to use a CPAP and follow with the sleep clinic to readjust the (8) Tobacco dependency Is this a current diagnosis for this admission?: Yes Summary: Start the patient on nicotine patch - Additional Information Discharge Diet: Diabetic Discharge Activity: Activity As Tolerated Prescriptions: Nicotine [Nicoderm 14 mg/24 Hr Transdermal Patch] 1 patch TD DAILY #30 patch.[id number] Prednisone 10 mg PO DAILY #5 tablet Sucralfate [Carafate Susp 1 gm/10 ml Udcup] 1 gm PO BIDACBS #600 udc Home Medications: Atorvastatin Calcium [Lipitor 20 mg Tablet] 20 mg PO QHS 12/13/16 Dexlansoprazole [Dexilant 60 mg Capsule] 60 mg PO DAILY 12/13/16 Fluticasone Propionate [Flonase Nasal [place] 50 Mcg/[place] 16 gm] 1 spray NASL DAILY 12/13/16 Furosemide [Lasix 20 mg Tablet] 20 mg PO DAILY 12/13/16 Liraglutide [Victoza 2-Dane] 1.8 ml SQ DAILY 12/13/16 Metoprolol Tartrate [Lopressor 25 mg Tablet] 25 mg PO WBRKFST 12/13/16 Ramipril [Altace 5 mg Capsule] 10 mg PO DAILY 12/13/16 Sitagliptin Phosphate [Januvia] 100 mg PO DAILY 12/13/16 Docusate Sodium [Colace 100 mg Capsule] 100 mg PO DAILY 08/15/17 Nicotine [Nicoderm 14 mg/24 Hr Transdermal Patch] 1 patch TD DAILY #30 patch.[id number] 08/16/17 Prednisone 10 mg PO DAILY #5 tablet 08/16/17 Sucralfate [Carafate Susp 1 gm/10 ml Udcup] 1 gm PO BIDACBS #600 udc 08/16/17 History of Present Illness History of Present Illness: KALI MARTINEZ is a 47 year old female This is a 47-year-old female with a significant history of the type 2 diabetes mellitus history of the morbid obesity history of the sleep apnea not using the CPAP and history of the hypertension's hyperlipidemia and a significant history of the gastroparesis, GI issuesRecently see GI at [facility] and a several GI workup done and history of the stress test and echocardiogram was done back in November 2016 was all normal came to the emergency department with a complaint of left-sided pain in the upper extremities since last several days She is currently under a lot of stress due to the upcoming marriage and patients wants to lose the weight Patient initial workup in the emergency department is all stable patient underwent for the CT angiogram which did not show any pulmonary embolism not seeing any coronary calcifications patient was some left 10th rib fracture which patients thought maybe she fell last year and atypical some pneumonitis in the right side of the lung but patient does not have any cough no congestion' s no other symptoms Patient's white count is completely normal patient is afebrile Patient at this point decided to admit in the hospital for the follow to rule out any cardiac issue patients giving the GI cocktail which pretty much all the problems Hospital Course Hospital Course: This is a 47-year-old female as medical problem came to the emergency department with the complaining of chest pain for the last couple of days patient initial workup for the EKG and cardiac enzymes all negative with the multiple underlying risk factors patient decided to admit for further evaluation and rule out acute coronary syndromes Patients all cardiac enzyme is negative EKG is stable seen by cardiology in patients follow as outpatient patient have recently a stress test and echocardiogram done back in November 2016 was all normal and patients did not have any chest pains up to the admitting in the hospitals Patient have a CT angiogram was done which is negative for any pulmonary embolisms or any aneurysm except patient have a some old 10th rib fractures and patients have a some atypical pneumonitis which patient currently does not have any symptoms Patients continues to smoke and patient have a significant gastroparesis and the GI symptoms we will add the Carafate with the PPI Patient's follow-up outpatients in the office at the pulmonary functions test and further evaluations Physical Exam Vital Signs: Temp Pulse Resp BP Pulse Ox 97.9 F 78 16 124/51 L 96 08/16/17 07:57 08/16/17 07:57 08/16/17 07:57 08/16/17 07:57 08/16/17 07:57 Intake & Output 08/15/17 08/16/17 08/17/17 06:59 06:59 06:59 Intake Total 544 Output Total 400 Balance 144 Weight 150.2 kg General appearance: PRESENT: no acute distress, well-developed, well-nourished Head exam: PRESENT: atraumatic, normocephalic Eye exam: PRESENT: conjunctiva pink, EOMI, PERRLA. ABSENT: scleral icterus Ear exam: PRESENT: normal external ear exam Mouth exam: PRESENT: moist, tongue midline Neck exam: PRESENT: full ROM. ABSENT: carotid bruit, JVD, lymphadenopathy, thyromegaly Respiratory exam: PRESENT: clear to auscultation nelson Cardiovascular exam: PRESENT: RRR. ABSENT: diastolic murmur, rubs, systolic murmur Pulses: PRESENT: normal dorsalis pedis pul, +2 pedal pulses bilateral Vascular exam: PRESENT: normal capillary refill GI/Abdominal exam: PRESENT: normal bowel sounds, soft. ABSENT: distended, guarding, mass, organolmegaly, rebound, tenderness Rectal exam: PRESENT: deferred Extremities exam: ABSENT: pedal edema Musculoskeletal exam: PRESENT: ambulatory Neurological exam: PRESENT: alert, awake, oriented to person, oriented to place , oriented to time, oriented to situation, CN II-XII grossly intact. ABSENT: motor sensory deficit Psychiatric exam: PRESENT: appropriate affect, normal mood. ABSENT: homicidal ideation, suicidal ideation Skin exam: PRESENT: dry, intact, warm. ABSENT: cyanosis, rash Results Laboratory Results: 08/15/17 19:55 Troponin I < 0.012 Impressions: Chest X-Ray 08/15/17 14:34 IMPRESSION: NO ACUTE RADIOGRAPHIC FINDING IN THE CHEST. Chest/Abdomen CTA 08/15/17 17:48 IMPRESSION: 1. No pulmonary emboli. 2. Subtle ground-glass opacities involving right upper lobe are nonspecific; given unifocal distribution, consider atypical pneumonitis. 3. Left 10th rib age-indeterminate fracture. Qualifiers - * PATIENT BEING DISCHARGED WITH ANY OF THE FOLLOWING DIAGNOSIS: No VTE patient discharged on overlapping Therapy?: Yes Plan Time Spent: Greater than 30 Minutes - Discharge home with the stable conditions follow outpatients cardiology and will refer to the pulmonary as outpatient and will do the pulmonary function test
[2017-08-16 12:58] VITALS: BP 121/67
--- NOTE | 2017-08-17 04:45 | CONSULTATION REPORT E ---
Consultation Report NAME: KALI MARTINEZ : 1970 AGE: 47Y DATE: 08/16/2017 530 A TO: WENDY RAMOS M.D. FROM: JULIA THOMAS M.D. Requesting Physician REASON FOR CONSULTATION: Chest pain. HISTORY OF PRESENT ILLNESS: The patient is a 47-year-old female, who is morbidly obese with a history of diabetes mellitus, obstructive sleep apnea, but not wearing a CPAP, hypertension, anxiety and depression, gastroparesis, and diabetes mellitus, who states since the past few days has been having left front of the chest pain with radiation to the left shoulder and upper arm at times. The patient states that it is not brought on by exertion. It is a dull ache, but sometimes sharp and also pressure-like sensation. She states if she moves at all or uses her pectoral muscles, the symptoms become worse. Also, she states this chest pain can be reproduced when pressing on the chest, which I did and this reproduced the patient's chest pain. Hence it is clearly chest wall pain. She does have dyspnea on exertion with more than mild exertion, but the patient is morbidly obese and is very physically deconditioned. She denies any leg edema. There is no PND, orthopnea. There are no palpitations, syncope or near syncope or dizziness. There is no TIA or CVA symptoms. PAST MEDICAL HISTORY: Positive for: 1. History of hypertension. 2. History of diabetes mellitus type 2. 3. She also has history of anxiety and depression. 4. Due to her diabetes, she also has gastroparesis. She has had several GI workups done. 5. No history of coronary artery disease or NM. 6. She states in the past she has gone into renal failure due to over diuresis, but now renal function is normal. 7. She denies any history of asthma or COPD. 8. The patient is a smoker. 9. She also has history of sleep apnea and states she is unable to wear the BiPAP. I have discussed the possibility of the patient trying to wear a nasal CPAP. 10. There is no history of TIA or CVA. 11. She also has history of hyperlipidemia. PAST SURGICAL HISTORY: Positive for history of: 1. Breast biopsy, which was nonmalignant. 2. She has also had breast reduction. 3. She has also had surgery for anal fistula and has had surgery x6 in her anal region. 4. She has had surgery for hemorrhoids. 5. Tubal ligation. FAMILY HISTORY: Positive for hypertension in mother, but no history of coronary artery disease. SOCIAL HISTORY: The patient is a smoker. She has no history of ETOH abuse. This patient is a FULL CODE. Her daughter is a surrogate healthcare decision maker. ALLERGIES: 1. ASPIRIN AND IBUPROFEN, WHICH GIVES HER SEVERE ANAPHYLAXIS. 2. SHE IS ALSO ALLERGIC TO CIPRO, WHICH GIVES HER ITCHING. 3. SHE ALSO HAS ANAPHYLAXIS WITH EGGS AND PENICILLIN. 4. SHE ALSO HAS ALLERGY TO METOCLOPRAMIDE. MEDICATIONS: In the hospital include: 1. Nitroglycerin 1 tablet sublingual p.r.n. 2. Nitroglycerin 2% ointment, 1 gram topically x1. 3. Morphine 2 mg IV x1. 4. Zofran 4 mg IV x1. 5. Tylenol 650 mg p.o. every 4 hours p.r.n. 6. Hypoglycemia precaution with dextrose 50%, 12.5 grams and 25 grams IV p.r.n. 7. Glutose 40% gel, 15 grams and 30 grams p.o. p.r.n. hypoglycemia. 8. Glucagon 1 mg intramuscularly p.r.n. hypoglycemia. 9. Maalox Plus 30 mL p.o. x1. 10. Lidocaine 15 mL p.o. x1. 11. Sucralfate 1 gram p.o. b.i.d. before breakfast and supper. 12. Lipitor 20 mg p.o. nightly. 13. Prevacid 30 mg p.o. every 6 a.m. 14. Metoprolol tartrate/Lopressor 25 mg p.o. with breakfast. 15. Lovenox 40 mg subcutaneously daily. 16. Flonase nasal spray, 1 spray nasally daily. 17. Lasix 20 mg p.o. daily. 18. Altace 10 mg p.o. daily. 19. Dexilant 60 mg p.o. daily. 20. Victoza 1.8 mL subcutaneously daily. 21. Januvia 100 mg p.o. daily. REVIEW OF SYSTEMS: CONSTITUTIONAL: Denies any fevers, chills or rigors. Complains of generalized fatigue and weakness. HEAD: Does get headaches off and on, but no migraines. No history of head injury. EYES: No history of amblyopia or diplopia. No history of amaurosis fugax. EARS: No history of tinnitus, no history of hearing loss. No history of recurrent ear infections. NOSE: No history of hay fever, but does state that she has nasal stuffiness due to allergies. There is no history of nosebleeds. No history of nasal polyps. MOUTH: No history of altered taste sensation. No ulcers in the mouth. No bleeding from the gums. THROAT: No odynophagia or dysphagia. No history of recurrent sore throat. SKIN: No psoriasis, no pruritus, no yellowish discoloration of the skin, no eczema. NECK: No painful or painless swelling of the neck. No neck stiffness. LUNGS: No recent cough or wheezing. No history of asthma or COPD. The patient is a smoker. She has history of obstructive sleep apnea and does not use CPAP. She has no history of pulmonary embolism. No pleuritic chest pain. The patient does have chest wall pain, which brought her to the emergency room, especially since she also has history of anxiety. No history of hemoptysis. CARDIAC: Past history of congestive heart failure, most likely diastolic heart failure. She had a Lexiscan Cardiolite stress test in 11/2016, which showed no reversible ischemia and no scar. Her echocardiogram at that time showed that she had mild LVH and normal left ventricular ejection fraction with no wall motion abnormality and had LV diastolic dysfunction. There was mild concentric left ventricular hypertrophy. She states in the past she has had congestive heart failure as mentioned earlier. She has no history of PND, orthopnea. At present her leg edema is controlled with Lasix. There is no history of palpitations, syncope, dizziness or near syncope. GASTROINTESTINAL: Giardia present. History of gastroparesis present. No history of fatty food intolerance. No history of hepatitis, no history of cirrhosis. No history of rectal bleed. Past history of hemorrhoids and fistula for which she has had surgical correction. No history of altered bowel movements. No abdominal pain. No nausea, vomiting. Appetite is fair. RENAL: Past history of renal insufficiency due to over diuresis. At present, renal function is normal No symptoms of hematuria, pyuria or dysuria. MUSCULOSKELETAL: History of arthritis of the knees present. No history of collagen vascular disease. ENDOCRINE: History of diabetes mellitus type 2, noninsulin dependent. No history of thyroid disease. No history of polydipsia or polyuria. No history of hirsutism. No history of excessive sweating. CENTRAL NERVOUS SYSTEM: No history of TIA or CVA. No history of seizures, headaches, or migraine. No history of gait imbalance. History of sleep apnea, does not use CPAP. PSYCHIATRIC: History of anxiety and depression. She states she has controlled herself without medication. There is no history of suicidal ideation. The patient does have history of panic attacks. VASCULAR: No history of calf or buttock claudication. No history of DVT. HEMATOLOGIC: No history of bleeding diathesis. No history of clotting disorder. PHYSICAL EXAMINATION: GENERAL: The patient is morbidly obese, but well groomed in no acute distress. VITAL SIGNS: She has BMI of 53.4 kg/m2. She is afebrile with a temperature of 97.6, pulse 73 beats per minute, blood pressure 127/79, respirations 16 per minute, O2 saturation 98% on room air. HEENT: Head is atraumatic, normocephalic. Eyes: Pupils are equal, round, regular, reactive to light and accommodation. Extraocular movements are normal. There is no conjunctival pallor. There is no scleral icterus. Ears: Tympanic membranes are intact. External auditory canals are clear. Nose: There is no deviation of the nasal septum, there is no inflammation of the nasal mucosa. Mouth: Mucous membranes of the mouth are moist, tongue is moist, there are no ulcers and no bleeding from the gums. Throat: There is no redness of the oropharynx, there are no exudates. SKIN: There are no skin rashes. There are no petechiae or ecchymosis. There is no skin lesion. NECK: Supple. There is no JVD. There is no lymphadenopathy. There is no goiter. Carotids are equal. There is no bruit. Trachea is central. LUNGS: At present are clear to auscultation and percussion. There is left front of the chest wall tenderness and also tenderness over the left shoulder, reproducing the patient's symptoms. HEART: S1, S2 heard. There is no S3 gallop. There is no S4 gallop. There is a systolic murmur left sternal border at the apex without radiation. There is no rub. ABDOMEN: Obese, nontender. There is no hepatosplenomegaly. Bowel sounds are well heard. There are no tender areas or masses. There is no rebound, guarding or rigidity. EXTREMITIES: Femorals are deep, femorals are diminished. There are no femoral bruits. Leg pulses are diminished. There is no pedal edema. There is no cyanosis or clubbing. There is no DVT or cellulitis. There is no calf tenderness. CENTRAL NERVOUS SYSTEM: The patient is conscious, awake, alert, oriented x3 with no focal deficits. PSYCHIATRIC: The patient's judgement and insight are intact. Her affect is normal. The patient does not appear to be agitated or depressed at present. DIAGNOSTICS: The patient's EKG shows sinus rhythm, probable LVH, no acute changes. The patient's chest and abdomen CTA shows no pulmonary emboli. Some ground-glass opacities involving the right upper lobe, nonspecific; given the distribution consider atypical pneumonia. The patient has no symptoms of pneumonia. Left 10th rib, age indeterminate fracture. The patient's chest x-ray shows no acute radiographic changes. The patient's white count is 7300, hemoglobin 15.2, hematocrit 46.1, platelet count 232,000. The patient's sodium is 143.3, potassium 4.6, chloride 103, CO2 31, BUN 10, creatinine 0.75, GFR greater than 60, glucose 168. Troponin-I negative x2. Albumin 3.9, total protein 7.2. Liver function tests normal. Calcium 9.2. IMPRESSION: 1. CHEST WALL PAIN, NONCARDIAC. Would recommend heart pack and Tylenol/analgesic to which is not allergic to. 2. HYPERTENSION, WELL CONTROLLED. 3. HISTORY OF CONGESTIVE HEART FAILURE (CHF), MOST LIKELY LEFT VENTRICULAR DIASTOLIC DYSFUNCTION, NONE IN A LONG TIME. At present, no evidence of CHF on exam or by chest x-ray. 4. DIABETES MELLITUS TYPE 2, NONINSULIN DEPENDENT. 5. OBSTRUCTIVE SLEEP APNEA. The patient is intolerant to CPAP; however, I discussed with the patient to try nasal CPAP. 6. ANXIETY. 7. DEPRESSION. 8. MORBID OBESITY. 9. HYPERLIPIDEMIA. 10. TOBACCO ABUSE DISORDER. RECOMMENDATIONS: The patient has been reassured that this is noncardiac and I have also discussed the patient's stress test and echo findings done in 11/2016. Her medications have been reviewed. Would recommend continuing the same, would discontinue the patient's nitroglycerin patch/paste. Note, 60 minutes spent on this patient. The patient was seen at 11 a.m. this morning and more than 50% of the time was spent on direct patient care. The case has been discussed with the attending physician. The case also has been discussed with the patient. The patient can be discharged home and she desires to follow up with me. We will make an appointment for the patient to call me and my cell phone number given to the patient to set up an appointment for outpatient followup. Also, will discuss with Dr. Thomas about getting the patient a nasal CPAP. We will sign off, we will follow the patient in the office. Thank you. DICTATING PHYSICIAN: WENDY RAMOS M.D. [id number] Y#: [id number] ID: [id number] JOB#: [id number] ACCT: [id number] cc:WENDY RAMOS M.D. >
== END 2017-08-16 12:55 | disposition home or self-care (01) ==
LOC: ER 13:40 → EH 17:34 → 5 18:52
PROVIDERS: ADMIT Family Medicine; ATTEND Family Medicine
DX: R07.9 Chest pain, unspecified (principal); I11.0 Hypertensive heart disease with heart failure; I50.32 Chronic diastolic (congestive) heart failure; E11.43 Type 2 diabetes mellitus with diabetic autonomic (poly)neuropathy; K31.84 Gastroparesis; E78.5 Hyperlipidemia, unspecified; G47.33 Obstructive sleep apnea (adult) (pediatric); F17.210 Nicotine dependence, cigarettes, uncomplicated; E66.01 Morbid (severe) obesity due to excess calories; R06.09 Other forms of dyspnea; F41.9 Anxiety disorder, unspecified; F32.9 Major depressive disorder, single episode, unspecified; Z68.43 Body mass index [BMI] 50.0-59.9, adult; F40.240 Claustrophobia; R51 Headache; Z87.81 Personal history of (healed) traumatic fracture; Z79.899 Other long term (current) drug therapy; Z98.51 Tubal ligation status; Z90.10 Acquired absence of unspecified breast and nipple; Z82.49 Family history of ischemic heart disease and other diseases of the circulatory system; Z91.81 History of falling
CPT/HCPCS: 93005; 99285; 36415; 82553; 82962 ×2; 82550; 85025; 80053; 84484; 83880; 71045; 71275; 93010; G0378 ×3; J3490 ×12; J2270; J1650; J2405

== ENCOUNTER 2017-11-23 03:38 | Emergency (ER) | payer MEDICAID ==
[2017-11-23] MEDS ORDERED: FAMOTIDINE 20 MG TABLET PO ONE (03:54)
[2017-11-23] MEDS ORDERED: PREDNISONE 20 MG TABLET PO ONE (03:54)
--- NOTE | 2017-11-23 03:58 | ER Document Report ---
ED Allergic Reaction - General Mode of Arrival: Ambulatory Information source: Patient TRAVEL OUTSIDE OF THE [place] IN LAST 30 DAYS: No <FERNANDA MAY - Last Filed: 11/23/17 03:54> <GREGORIA JAMESON - Last Filed: 11/23/17 05:31> - General Chief Complaint: Allergic Reaction Stated Complaint: TROUBLE BREATHING Time Seen by Provider: 11/23/17 03:39 Notes: 47-year-old female who presents to the emergency department today with complaints of an allergic reaction. Patient states she is allergic to eggs and her had eggs this morning, had some on his mouth, and went to kiss her as he was leaving for work. Patient states she took "3 or 4" Benadryl prior to arrival here. Patient complains of shortness of breath but is saturating 100% on room air. Patient states her hands and feet "itch and burn" and her lips are tingling. (FERNANDA MAY) - Related Data Allergies/Adverse Reactions: aspirin Allergy (Severe, Verified 08/16/17 12:31) Anaphylaxis ibuprofen [Ibuprofen] Allergy (Severe, Verified 08/16/17 12:31) Anaphylaxis ciprofloxacin [From Cipro] Allergy (Intermediate, Verified 08/16/17 12:31) itching codeine Allergy (Verified 08/16/17 12:31) egg [Egg] Allergy (Verified 08/16/17 12:31) Anaphylaxis Penicillins Allergy (Verified 08/16/17 12:31) Anaphylaxis metoclopramide [From Reglan] Adverse Reaction (Severe, Verified 08/16/17 12:31) Past Medical History - General Information source: Patient - Social History Smoking Status: Unknown if Ever Smoked Cigarette use (# per day): No Frequency of alcohol use: None Drug Abuse: None Lives with: Family Family History: Reviewed & Not Pertinent, CAD, Hypertension - Past Medical History Cardiac Medical History: Reports: Hx Congestive Heart Failure, Hx Hypertension Pulmonary Medical History: Reports: Hx Sleep Apnea Endocrine Medical History: Reports: Hx Diabetes Mellitus Type 2 Malignancy Medical History: GI Medical History: Reports: Hx Gastroesophageal Reflux Disease, Hx Irritable Bowel Musculoskeletal Medical History: Reports Hx Musculoskeletal Deformity, Reports Hx Musculoskeletal Trauma Psychiatric Medical History: Reports: Hx Anxiety, Hx Depression Infectious Medical History: Past Surgical History: Reports: Hx Breast Surgery - breast reduction, biopsy, Hx Mastectomy, Hx Rectal Surgery - Fistula, hemorrhoids, Hx Tubal Ligation - Immunizations Immunizations up to date: Yes Hx Diphtheria, Pertussis, Tetanus Vaccination: Yes <FERNANDA MAY - Last Filed: 11/23/17 03:54> Review of Systems - Review of Systems Constitutional: No symptoms reported EENT: No symptoms reported. denies: Throat swelling Cardiovascular: No symptoms reported Respiratory: See HPI, Short of breath - saturating 100% on room air Gastrointestinal: No symptoms reported Genitourinary: No symptoms reported Female Genitourinary: No symptoms reported Musculoskeletal: No symptoms reported Skin: See HPI, Other - hand/feet itching Hematologic/Lymphatic: No symptoms reported Neurological/Psychological: No symptoms reported -: Yes All other systems reviewed and negative <FERNANDA MAY - Last Filed: 11/23/17 03:54> Physical Exam - Vital signs Interpretation: Normal - General General appearance: Appears well, Alert - HEENT Head: Normocephalic, Atraumatic Eyes: Normal Pupils: PERRL Mouth/Lips: Other - Swelling of lower lip, Tongue wnl Mucous membranes: Normal Pharynx: Normal - Respiratory Respiratory status: No respiratory distress Chest status: Nontender Breath sounds: Normal Chest palpation: Normal - Cardiovascular Rhythm: Regular Heart sounds: Normal auscultation Murmur: No - Abdominal Inspection: Normal Distension: No distension Bowel sounds: Normal Tenderness: Nontender Organomegaly: No organomegaly - Back Back: Normal, Nontender - Extremities General upper extremity: Normal inspection, Nontender, Normal color, Normal ROM , Normal temperature General lower extremity: Normal inspection, Nontender, Normal color, Normal ROM , Normal temperature, Normal weight bearing. No: Annette's sign - Neurological Neuro grossly intact: Yes Cognition: Normal Orientation: AAOx4 Talmo Coma Scale Eye Opening: Spontaneous Talmo Coma Scale Verbal: Oriented Crystal Coma Scale Motor: Obeys Commands Talmo Coma Scale Total: 15 Speech: Normal Motor strength normal: LUE, RUE, LLE, RLE Sensory: Normal - Psychological Associated symptoms: Normal affect, Normal mood - Skin Skin Temperature: Warm Skin Moisture: Dry Skin Color: Normal <GREGORIA JAMESON - Last Filed: 11/23/17 05:31> - Vital signs Vitals: Temp Pulse Resp BP Pulse Ox 98.1 F 78 26 H 150/91 H 98 11/23/17 03:42 11/23/17 03:42 11/23/17 03:42 11/23/17 03:42 11/23/17 03:42 Course <FERNANDA MAY - Last Filed: 11/23/17 03:54> <GREGORIA JAMESON - Last Filed: 11/23/17 05:31> - Re-evaluation Re-evalutation: 11/23/17 04:28 No worsening symptoms. 11/23/17 05:27 Patient is feeling better. Her lip swelling is decreased and she is no longer as pruritic. She will be discharged home with a prescription for prednisone, famotidine. She can take Benadryl and Claritin [id number] as needed for itching. Understands and agrees with plan. Avoid eggs. Stable for discharge. Follow-up with PMD as needed. Grateful for care. (GREGORIA JAMESON) - Vital Signs Vital signs: Temp Pulse Resp BP Pulse Ox 98.1 F 78 26 H 150/91 H 98 11/23/17 03:42 11/23/17 03:42 11/23/17 03:42 11/23/17 03:42 11/23/17 03:42 Critical Care Note - Critical Care Note Total time excluding time spent on procedures (mins): 15 - Evaluation and management of allergic reactions with multiple re-evaluations, counseling of patient and family <GREGORIA JAMESON - Last Filed: 11/23/17 05:31> Discharge <FERNANDA MAY - Last Filed: 11/23/17 03:54> <GREGORIA JAMESON - Last Filed: 11/23/17 05:31> - Discharge Clinical Impression: Allergic reaction Qualifiers: Encounter type: initial encounter Qualified Code(s): T78.40XA - Allergy, unspecified, initial encounter Condition: Stable Disposition: HOME, SELF-CARE Instructions: Food Allergy ([facility]), Acute Allergic Reaction ([facility]) Additional Instructions: You may take Claritin/Zyrtec and Benadryl [id number] as needed for itching. Please follow-up with your doctor this week. Prescriptions: Prednisone [Deltasone 20 mg Tablet] 1 tab PO DAILY 3 Days #3 tablet Ranitidine HCl 150 mg PO BID #30 tablet Referrals: JULIA THOMAS MD [Primary Care Provider] - Follow up in 3-5 days Scribe Attestation: 11/23/17 05:30 I personally performed the services described in the documentation, reviewed and edited the documentation which was dictated to the scribe in my presence, and it accurately records my words and actions. (GREGORIA JAMESON) Scribe Documentation - Scribe Written by Scribe:: Filiberto Hickey, 11/23/2017 [id number] acting as scribe for :: Denny <FERNANDA MAY - Last Filed: 11/23/17 03:54>
[2017-11-23 05:33] VITALS: BP 125/59
== END 2017-11-23 05:36 | disposition home or self-care (01) ==
LOC: ER 03:38
DX: T78.40XA Allergy, unspecified, initial encounter (principal); X58.XXXA Exposure to other specified factors, initial encounter; I50.9 Heart failure, unspecified; I11.0 Hypertensive heart disease with heart failure; E11.9 Type 2 diabetes mellitus without complications; Z98.51 Tubal ligation status; Z88.6 Allergy status to analgesic agent; Z88.3 Allergy status to other anti-infective agents; Z88.0 Allergy status to penicillin; Z91.012 Allergy to eggs
CPT/HCPCS: 99283; J3490; J7512

== ENCOUNTER 2018-01-23 13:30 | Emergency (ER) | payer MEDICAID ==
[2018-01-23] MEDS ORDERED: METHYLPREDNISOLONE INJ 125 MG/2 ML SDV IM ONE (13:59)
[2018-01-23] MEDS ORDERED: DIPHENHYDRAMINE HCL 50 MG CAPSULE PO ONE (13:59)
--- NOTE | 2018-01-23 14:01 | ER Document Report ---
ED Medical Screen (RME) - General Chief Complaint: Allergic Reaction Stated Complaint: POSSIBLE ALLERGIC REACTION Time Seen by Provider: 01/23/18 13:52 Notes: Patient is a 47-year-old female that presents to the emergency department for chief complaint of facial swelling concern for allergic reaction. ROS: Unless otherwise stated in this report the patient's positive and negative responses for review of systems for constitutional, eyes, ENT, cardiovascular, respiratory, gastrointestinal, neurological, genitourinary, musculoskeletal, and integumentary systems and related systems to the presenting problem are either as stated in the HPI or were not pertinent or were negative for the symptoms and/or complaints related to the presenting medical problem. PHYSICAL EXAMINATION: Vital signs reviewed. GENERAL: Well-appearing, well-nourished and in no acute distress. HEAD: Atraumatic, normocephalic. EYES: Pupils equal round extraocular movements intact, conjunctiva are normal. ENT: Nares patent uvula midline, nonedematous, no tongue edema, there is lip and facial swelling noted. NECK: Normal range of motion CV: Heart regular rate and rhythm LUNGS: No respiratory distress Musculoskeletal: Normal range of motion NEUROLOGICAL: Normal speech PSYCH: Normal mood, normal affect. MDM: Patient seen and examined for rapid initial assessment. Vital signs reviewed. A comprehensive ED assessment and evaluation of the patient, analysis of test results and completion of the medical decision making process will be conducted by additional ED providers. *Note is created using voice recognition software and may contain spelling, syntax or grammatical errors. TRAVEL OUTSIDE OF THE [place] IN LAST 30 DAYS: No - Related Data Allergies/Adverse Reactions: aspirin Allergy (Severe, Verified 08/16/17 12:31) Anaphylaxis ibuprofen [Ibuprofen] Allergy (Severe, Verified 08/16/17 12:31) Anaphylaxis ciprofloxacin [From Cipro] Allergy (Intermediate, Verified 08/16/17 12:31) itching codeine Allergy (Verified 08/16/17 12:31) egg [Egg] Allergy (Verified 08/16/17 12:31) Anaphylaxis Penicillins Allergy (Verified 08/16/17 12:31) Anaphylaxis metoclopramide [From Reglan] Adverse Reaction (Severe, Verified 08/16/17 12:31) Past Medical History - Social History Chew tobacco use (# tins/day): No Frequency of alcohol use: None Drug Abuse: None - Past Medical History Cardiac Medical History: Reports: Hx Congestive Heart Failure, Hx Hypertension Denies: Hx Heart Attack Pulmonary Medical History: Reports: Hx Sleep Apnea Endocrine Medical History: Reports: Hx Diabetes Mellitus Type 2 Renal/ Medical History: Denies: Hx Peritoneal Dialysis Malignancy Medical History: GI Medical History: Reports: Hx Gastroesophageal Reflux Disease, Hx Irritable Bowel Musculoskeltal Medical History: Reports Hx Musculoskeletal Deformity, Reports Hx Musculoskeletal Trauma Psychiatric Medical History: Reports: Hx Anxiety, Hx Depression Infectious Medical History: Past Surgical History: Reports: Hx Breast Surgery - breast reduction, biopsy, Hx Mastectomy, Hx Rectal Surgery - Fistula, hemorrhoids, Hx Tubal Ligation - Immunizations Immunizations up to date: Yes Hx Diphtheria, Pertussis, Tetanus Vaccination: Yes History of Influenza Vaccine for 12/2016 - 05/2017 Season: No Physical Exam - Vital signs Vitals: Temp Pulse Resp BP Pulse Ox 97.7 F 81 20 145/89 H 95 01/23/18 13:43 01/23/18 13:43 01/23/18 13:43 01/23/18 13:43 01/23/18 13:43 Course - Vital Signs Vital signs: Temp Pulse Resp BP Pulse Ox 97.7 F 81 20 145/89 H 95 01/23/18 13:43 01/23/18 13:43 01/23/18 13:43 01/23/18 13:43 01/23/18 13:43 Doctor's Discharge - Discharge Referrals: JULIA THOMAS MD [Primary Care Provider] - Follow up as needed
--- NOTE | 2018-01-23 15:15 | ER Document Report ---
ED General - General Mode of Arrival: Ambulatory Information source: Patient TRAVEL OUTSIDE OF THE [place] IN LAST 30 DAYS: No <GARRY KHAN - Last Filed: 01/23/18 16:17> <GREGORIA JAMESON - Last Filed: 01/23/18 21:21> - General Chief Complaint: Allergic Reaction Stated Complaint: POSSIBLE ALLERGIC REACTION Time Seen by Provider: 01/23/18 13:52 Notes: Patient is a 47 year old female with CHF, hypertension, diabetes presents to the emergency department complaining of facial swelling onset this morning. Patient states she woke up around 0600 today and noticed her lips were red and felt different when she licked them. She also states she began to feel itchy on her thighs. Patient states she proceeded to take 2 Benadryl, take a shower and go back to bed. At 1230 she states she noticed some facial swelling and proceeded to come to the emergency department. Patient states she has an allergy to eggs and medications like Lisinopril but states she has stayed away from these. Patient denies any shortness of breath or difficulty swallowing. Patient mentions recently having her dosing of Ramipril increased. (GARRY KHAN) - Related Data Allergies/Adverse Reactions: aspirin Allergy (Severe, Verified 08/16/17 12:31) Anaphylaxis ibuprofen [Ibuprofen] Allergy (Severe, Verified 08/16/17 12:31) Anaphylaxis ciprofloxacin [From Cipro] Allergy (Intermediate, Verified 08/16/17 12:31) itching codeine Allergy (Verified 08/16/17 12:31) egg [Egg] Allergy (Verified 08/16/17 12:31) Anaphylaxis Penicillins Allergy (Verified 08/16/17 12:31) Anaphylaxis metoclopramide [From Reglan] Adverse Reaction (Severe, Verified 08/16/17 12:31) Past Medical History - General Information source: Patient - Social History Smoking Status: Current Every Day Smoker Chew tobacco use (# tins/day): No Frequency of alcohol use: None Drug Abuse: None Family History: Reviewed & Not Pertinent, CAD, Hypertension Patient has suicidal ideation: No Patient has homicidal ideation: No - Past Medical History Cardiac Medical History: Reports: Hx Congestive Heart Failure, Hx Hypertension Pulmonary Medical History: Reports: Hx Sleep Apnea Endocrine Medical History: Reports: Hx Diabetes Mellitus Type 2 Malignancy Medical History: GI Medical History: Reports: Hx Gastroesophageal Reflux Disease, Hx Irritable Bowel Musculoskeletal Medical History: Reports Hx Musculoskeletal Deformity, Reports Hx Musculoskeletal Trauma Psychiatric Medical History: Reports: Hx Anxiety, Hx Depression Infectious Medical History: Past Surgical History: Reports: Hx Breast Surgery - breast reduction, biopsy, Hx Mastectomy, Hx Rectal Surgery - Fistula, hemorrhoids, Hx Tubal Ligation - Immunizations Immunizations up to date: Yes Hx Diphtheria, Pertussis, Tetanus Vaccination: Yes <GARRY KHAN - Last Filed: 01/23/18 16:17> Review of Systems - Review of Systems Constitutional: No symptoms reported EENT: No symptoms reported Cardiovascular: No symptoms reported Respiratory: No symptoms reported Gastrointestinal: No symptoms reported Genitourinary: No symptoms reported Female Genitourinary: No symptoms reported Musculoskeletal: See HPI Skin: No symptoms reported Hematologic/Lymphatic: No symptoms reported Neurological/Psychological: No symptoms reported -: Yes All other systems reviewed and negative <GARRY KHAN - Last Filed: 01/23/18 16:17> Physical Exam - General General appearance: Appears well, Alert In distress: None - HEENT Head: Normocephalic, Atraumatic Eyes: Normal Conjunctiva: Normal Extraocular movements intact: Yes Pupils: PERRL Mucous membranes: Normal Pharynx: Normal Neck: Normal - Respiratory Respiratory status: No respiratory distress Chest status: Nontender Breath sounds: Normal Chest palpation: Normal - Cardiovascular Rhythm: Regular Heart sounds: Normal auscultation Murmur: No Friction rub: No Gallop: None auscultated - Abdominal Inspection: Obese Distension: No distension Bowel sounds: Normal Tenderness: Nontender Organomegaly: No organomegaly - Back Back: Normal - Extremities General upper extremity: Normal ROM General lower extremity: Normal ROM - Neurological Neuro grossly intact: Yes Cognition: Normal Orientation: AAOx4 [place] Coma Scale Eye Opening: Spontaneous [place] Coma Scale Verbal: Oriented [place] Coma Scale Motor: Obeys Commands [place] Coma Scale Total: 15 Speech: Normal - Psychological Associated symptoms: Normal affect, Normal mood - Skin Skin Temperature: Warm Skin Moisture: Dry Skin Color: Normal <GARRY KHAN - Last Filed: 01/23/18 16:17> - Vital signs Vitals: Temp Pulse Resp BP Pulse Ox 97.7 F 81 20 145/89 H 95 01/23/18 13:43 01/23/18 13:43 01/23/18 13:43 01/23/18 13:43 01/23/18 13:43 Course <GARRY KHAN - Last Filed: 01/23/18 16:17> <GREGORIA JAMESON - Last Filed: 01/23/18 21:21> - Re-evaluation Re-evalutation: 01/23/18 16:17 Patient rechecked patient states that she is feeling a lot better and that there is no longer any facial swelling. She states she would like to go home. Taking p.o. (GARRY KHAN) 01/23/18 21:19 Patient complaining of lip swelling last night and again today. Patient takes an STALIN inhibitor. No itching but patient did have welts last night. Feeling better after Benadryl and steroids. Difficult to definitively say if this is an allergic reaction or angioedema from STALIN inhibitor. Patient is instructed to stop taking STALIN inhibitor. Follow-up with PMD this week. She will be given a prescription for short course of steroids. Patient is agreeable to this plan. Would like to go home. Stable for discharge. No further swelling or respiratory distress. (GREGORIA JAMESON) - Vital Signs Vital signs: Temp Pulse Resp BP Pulse Ox 97.9 F 70 20 145/90 H 95 01/23/18 16:43 01/23/18 16:43 01/23/18 16:43 01/23/18 16:43 01/23/18 16:43 Critical Care Note - Critical Care Note Total time excluding time spent on procedures (mins): 15 - Evaluation and management of allergic reaction, multiple re-evaluations, counseling of patient <GREGORIA JAMESON - Last Filed: 01/23/18 21:21> Discharge <GARRY KHAN - Last Filed: 01/23/18 16:17> <GREGORIA JAMESON - Last Filed: 01/23/18 21:21> - Discharge Clinical Impression: Angioedema Qualifiers: Encounter type: initial encounter Qualified Code(s): T78.3XXA - Angioneurotic edema, initial encounter Allergic reaction Qualifiers: Encounter type: initial encounter Qualified Code(s): T78.40XA - Allergy, unspecified, initial encounter Disposition: HOME, SELF-CARE Instructions: Acute Allergic Reaction ([facility]), Angioedema ([facility]) Additional Instructions: Stop taking Ramipril. Avoid STALIN inhibitors in the future. Prescriptions: Prednisone 40 mg PO DAILY #6 tablet Referrals: JULIA THOMAS MD [Primary Care Provider] - Follow up in 3-5 days Scribe Attestation: 01/23/18 21:20 I personally performed the services described in the documentation, reviewed and edited the documentation which was dictated to the scribe in my presence, and it accurately records my words and actions. (GREGORIA JAMESON) Scribe Documentation - Scribe Written by Filiberto:: Filiberto Hu, 01/23/2018 15:22 acting as scribe for :: Denny <GARRY KHAN - Last Filed: 01/23/18 16:17>
[2018-01-23 16:45] VITALS: BP 145/90
== END 2018-01-23 16:45 | disposition home or self-care (01) ==
LOC: ER 13:30
DX: T78.3XXA Angioneurotic edema, initial encounter (principal); L29.9 Pruritus, unspecified; E11.9 Type 2 diabetes mellitus without complications; I10 Essential (primary) hypertension; Z79.899 Other long term (current) drug therapy; Z88.8 Allergy status to other drugs, medicaments and biological substances; Z88.1 Allergy status to other antibiotic agents; Z88.0 Allergy status to penicillin; Z88.5 Allergy status to narcotic agent; Z91.012 Allergy to eggs; Z87.892 Personal history of anaphylaxis; Z88.6 Allergy status to analgesic agent
CPT/HCPCS: 99283; 96372; J3490; J2930

== ENCOUNTER 2018-02-08 00:12 | Emergency (ER) | payer MEDICAID ==
[2018-02-08 00:28] VITALS: BP 188/96
[2018-02-08] MEDS ORDERED: LIDOCAINE 2% JELLY 30 ML TUBE TOP ONE (01:13)
[2018-02-08] MEDS ORDERED: ACETAMINOPHEN 325 MG TABLET PO ONE (01:31)
--- NOTE | 2018-02-08 01:31 | ER Document Report ---
ED General - General Chief Complaint: Hemorrhoids Stated Complaint: RECTAL PAIN Time Seen by Provider: 02/08/18 00:49 Notes: Patient is a 48-year-old female who presents emergency department for rectal pain. She has sensitive history of hemorrhoids. She describes her pain as a sore pain, that radiates to her left groin. At home she has been taking Hemmorex and Preparation H for her hemorrhoids. She had hemorrhoid surgery about 15 years ago and about 2 years ago she had a banding surgery by Dr. Blank. For the past day she has been using her hemorrhagic some Preparation H , but no relief. Tonight she was in so much pain that prompted her to come to the emergency department. TRAVEL OUTSIDE OF THE [place] IN LAST 30 DAYS: No - Related Data Allergies/Adverse Reactions: aspirin Allergy (Severe, Verified 08/16/17 12:31) Anaphylaxis ibuprofen [Ibuprofen] Allergy (Severe, Verified 08/16/17 12:31) Anaphylaxis ciprofloxacin [From Cipro] Allergy (Intermediate, Verified 08/16/17 12:31) itching codeine Allergy (Verified 08/16/17 12:31) egg [Egg] Allergy (Verified 08/16/17 12:31) Anaphylaxis Penicillins Allergy (Verified 08/16/17 12:31) Anaphylaxis metoclopramide [From Reglan] Adverse Reaction (Severe, Verified 08/16/17 12:31) Past Medical History - Social History Smoking Status: Current Every Day Smoker Frequency of alcohol use: None Drug Abuse: Marijuana Family History: Reviewed & Not Pertinent, CAD, Hypertension - Past Medical History Cardiac Medical History: Reports: Hx Congestive Heart Failure, Hx Hypertension Denies: Hx Heart Attack Pulmonary Medical History: Reports: Hx Sleep Apnea Endocrine Medical History: Reports: Hx Diabetes Mellitus Type 2 Renal/ Medical History: Denies: Hx Peritoneal Dialysis Malignancy Medical History: GI Medical History: Reports: Hx Gastroesophageal Reflux Disease, Hx Irritable Bowel Musculoskeletal Medical History: Reports Hx Musculoskeletal Deformity, Reports Hx Musculoskeletal Trauma Psychiatric Medical History: Reports: Hx Anxiety, Hx Depression Infectious Medical History: Past Surgical History: Reports: Hx Breast Surgery - breast reduction, biopsy, Hx Mastectomy, Hx Rectal Surgery - Fistula, hemorrhoids, Hx Tubal Ligation - Immunizations Immunizations up to date: Yes Hx Diphtheria, Pertussis, Tetanus Vaccination: Yes Review of Systems - Review of Systems Notes: REVIEW OF SYSTEMS: CONSTITUTIONAL : Denies recent illness. Denies recent unintentional weight loss. Denies fever, chills, or sweats. EENT: Denies eye, ear, throat, or mouth pain, discharge, or symptoms. Denies nasal or sinus congestion. CARDIOVASCULAR: Denies chest pain. RESPIRATORY: Denies shortness of breath, cough, congestion, difficulty breathing , or wheezing. GASTROINTESTINAL: See HPI. GENITOURINARY: Denies difficulty urinating, burning, blood in urine, urgency or frequency. MUSCULOSKELETAL: Denies neck and back pain. Denies joint pain or swelling. SKIN: Denies rash, itchiness, or lesions HEMATOLOGIC : Denies easy bruising or bleeding. LYMPHATIC: Denies swollen, painful, enlarged glands. NEUROLOGICAL: Denies no numbness or tingling denies weakness. Denies headache. Denies altered mental status. Denies alteration in speech. PSYCHIATRIC: Denies stress, anxiety, alteration in sleep patterns, or depression. All other systems reviewed and negative. Physical Exam - Vital signs Vitals: Temp Pulse Resp BP Pulse Ox 97.7 F 100 18 188/96 H 94 02/08/18 00:27 02/08/18 00:27 02/08/18 00:27 02/08/18 00:27 02/08/18 00:27 - Notes Notes: PHYSICAL EXAMINATION: GENERAL: Appears well, obese, healthy, well-nourished, no acute distress. HEAD: Normocephalic, atraumatic. EYES: PERRL, conjunctiva normal, all extraocular movements intact, sclera nonicteric ENT: Moist mucous membranes. NECK: Supple, no noticeable swelling, redness, rash. Normal range of motion. LUNGS: Equal breath sounds bilaterally and clear to auscultation. No wheezes rales or rhonchi. CARDIOVASCULAR: S1-S2, regular rate, regular rhythm. Radial pulses 2+, normal. GASTROINTESTINAL: External hemorrhoids noted. Normoactive bowel sounds. Soft, nontender, no guarding, no rebound tenderness, and no masses palpated. EXTREMITIES: Normal strength and range of motion, no pitting or edema. No cyanosis. NEUROLOGICAL: Moves all extremities upon command. Strength 5/5 in all extremities. PSYCH: Normal mood, normal affect. SKIN: Warm, dry. No rash, lesions, ulcerations noted. Normal skin turgor. Course - Re-evaluation Re-evalutation: 02/08/18 01:10 Patient's hemorrhoids are a chronic problem. She states she sits on the toilet while on her phone for long periods of time. Since her pain has increased, we will try lidocaine to the area to help with her acute pain. She does not have a prolapsed rectum. I do not suspect she has any life-threatening etiologies at this time. 02/08/18 02:23 I have reevaluated the patient and she states that she feels better. She is stable for discharge and will be sent home with follow-up Dr. Blank. I will also prescribe her some lidocaine jelly for home. Verbal discharge instructions were given to the patient. She verbalizes understanding of discharge instructions. - Vital Signs Vital signs: Temp Pulse Resp BP Pulse Ox 97.7 F 100 18 188/96 H 94 02/08/18 00:27 02/08/18 00:27 02/08/18 00:27 02/08/18 00:27 02/08/18 00:27 Discharge - Discharge Clinical Impression: Hemorrhoids Qualifiers: Hemorrhoid type: unspecified Qualified Code(s): K64.9 - Unspecified hemorrhoids Condition: Stable Disposition: HOME, SELF-CARE Additional Instructions: Hemorrhoids You have hemorrhoids. These are formed by enlargement of veins around the anus. The cause is increased pressure in the veins, from or straining at bowel movements. Hemorrhoids often cause itching and bleeding with bowel movements. When a hemorrhoid becomes clotted, severe pain and swelling result. Soothing creams and suppositories are often prescribed. Warm sitz-baths may also decrease pain, swelling, and itching. Eat a high-fiber diet. Stool softeners such as Metamucil will help. Keep the area very clean. Medicated cleansing pads (such as Tucks) are useful after bowel movements. A hose-mounted shower unit (like a shower massager at low water pressure) can be used to clean around tender hemorrhoid tags. You should call the doctor or return if you develop fever, increasing pain , or an enlarging mass around the anus, or if you simply fail to improve with treatment. Please follow up with Dr. Blank for your hemorrhoids. Prescriptions: Lidocaine HCl [Aspercreme] 76.5 gm TP ASDIR PRN #1 cream..g. PRN Reason: Referrals: VI BLANK MD [ACTIVE STAFF] - Follow up in 3-5 days
== END 2018-02-08 03:06 | disposition home or self-care (01) ==
LOC: ER 00:12
DX: K64.9 Unspecified hemorrhoids (principal); K62.89 Other specified diseases of anus and rectum; F17.200 Nicotine dependence, unspecified, uncomplicated; I50.9 Heart failure, unspecified; I11.0 Hypertensive heart disease with heart failure; E11.9 Type 2 diabetes mellitus without complications; Z88.6 Allergy status to analgesic agent; Z88.3 Allergy status to other anti-infective agents; Z88.0 Allergy status to penicillin; Z91.012 Allergy to eggs; Z98.51 Tubal ligation status
CPT/HCPCS: 99282; J3490 ×2

== ENCOUNTER 2018-06-22 12:21 | Emergency (ER) | payer MEDICAID ==
--- NOTE | 2018-06-22 14:10 | ER Document Report ---
ED Medical Screen (RME) - General Chief Complaint: Chest Pain Stated Complaint: CHEST PAIN Time Seen by Provider: 06/22/18 14:06 Primary Care Provider: JULIA THOMAS MD [Primary Care Provider] - Follow up as needed Notes: Patient is a 48-year-old female history of CHF that presents to the emergency department for chief complaint of chest pain. Patient states she is been having on and off chest pain since Thursday, went to see her primary care physician today for pains in her thumbs, but mentioned she was having some chest pain over the weekend, and he wanted her to come to the ED to be evaluated. She does see Dr. Thomas, he had called over, and wanted chest pain workup that included a d-dimer, and wanted to be called back with results.. ROS: Other than noted above, the 12 point review of systems was reviewed with the patient and were negative, all pertinent findings are included in the HPI. PHYSICAL EXAMINATION: Vital signs reviewed. GENERAL: Obese female, no acute distress HEAD: Atraumatic, normocephalic. EYES: Pupils equal round extraocular movements intact, conjunctiva are normal. ENT: Nares patent NECK: Normal range of motion CV: Heart regular rate and rhythm LUNGS: No respiratory distress Musculoskeletal: Normal range of motion NEUROLOGICAL: Normal speech PSYCH: Normal mood, normal affect. MDM: Patient seen and examined for rapid initial assessment. Vital signs reviewed. A comprehensive ED assessment and evaluation of the patient, analysis of test results and completion of the medical decision making process will be conducted by additional ED providers. *Note is created using voice recognition software and may contain spelling, syntax or grammatical errors. TRAVEL OUTSIDE OF THE [place] IN LAST 30 DAYS: No - Related Data Allergies/Adverse Reactions: aspirin Allergy (Severe, Verified 06/22/18 12:25) Anaphylaxis ibuprofen [Ibuprofen] Allergy (Severe, Verified 06/22/18 12:25) Anaphylaxis ciprofloxacin [From Cipro] Allergy (Intermediate, Verified 06/22/18 12:25) itching codeine Allergy (Verified 06/22/18 12:25) egg [Egg] Allergy (Verified 06/22/18 12:25) Anaphylaxis Penicillins Allergy (Verified 06/22/18 12:25) Anaphylaxis metoclopramide [From Reglan] Adverse Reaction (Severe, Verified 06/22/18 12:25) Past Medical History - Past Medical History Cardiac Medical History: Reports: Hx Congestive Heart Failure, Hx Hypertension Denies: Hx Heart Attack Pulmonary Medical History: Reports: Hx Sleep Apnea Endocrine Medical History: Reports: Hx Diabetes Mellitus Type 2 Renal/ Medical History: Denies: Hx Peritoneal Dialysis Malignancy Medical History: GI Medical History: Reports: Hx Gastroesophageal Reflux Disease, Hx Irritable Bowel Musculoskeltal Medical History: Reports Hx Musculoskeletal Deformity, Reports Hx Musculoskeletal Trauma Psychiatric Medical History: Reports: Hx Anxiety, Hx Depression Infectious Medical History: Past Surgical History: Reports: Hx Breast Surgery - breast reduction, biopsy, Hx Mastectomy, Hx Rectal Surgery - Fistula, hemorrhoids, Hx Tubal Ligation - Immunizations Immunizations up to date: Yes Hx Diphtheria, Pertussis, Tetanus Vaccination: Yes History of Influenza Vaccine for 12/2016 - 05/2017 Season: No Physical Exam - Vital signs Vitals: Temp Pulse Resp BP Pulse Ox 98.2 F 66 16 152/82 H 97 06/22/18 12:36 06/22/18 12:36 06/22/18 12:36 06/22/18 12:36 06/22/18 12:36 Course - Vital Signs Vital signs: Temp Pulse Resp BP Pulse Ox 98.2 F 66 16 152/82 H 97 06/22/18 12:36 06/22/18 12:36 06/22/18 12:36 06/22/18 12:36 06/22/18 12:36 Doctor's Discharge - Discharge Referrals: JULIA THOMAS MD [Primary Care Provider] - Follow up as needed
--- NOTE | 2018-06-22 14:34 | RADIOLOGY REPORT (SQ) ---
EXAM DESCRIPTION: CHEST SINGLE VIEW COMPLETED DATE/TIME: 06/22/2018 2:28 pm REASON FOR STUDY: chest pain COMPARISON: 08/15/2017 EXAM PARAMETERS: NUMBER OF VIEWS: One view. TECHNIQUE: Single frontal radiographic view of the chest acquired. RADIATION DOSE: NA LIMITATIONS: None. FINDINGS: LUNGS AND PLEURA: No opacities, masses or pneumothorax. No pleural effusion. MEDIASTINUM AND HILAR STRUCTURES: No masses. Contour normal. HEART AND VASCULAR STRUCTURES: Heart normal in size. Normal vasculature. BONES: No acute findings. HARDWARE: None in the chest. OTHER: No other significant finding. IMPRESSION: NO ACUTE RADIOGRAPHIC FINDING IN THE CHEST. TECHNICAL DOCUMENTATION: JOB ID: [id number] [employer]- All Rights Reserved Reading location - IP/workstation name: [email or web address]
[2018-06-22 14:57] LABS: ABSOLUTE BASOPHILS # (AUTO) 0.1 10^3/uL (0.0-0.2); ABSOLUTE EOSINOPHILS # (AUTO) 0.1 10^3/uL (0.0-0.6); ABSOLUTE LYMPHOCYTES (AUTO) 2.4 10^3/uL (0.5-4.7); ABSOLUTE MONOCYTES (AUTO) 0.5 10^3/uL (0.1-1.4); ABSOLUTE NEUT (AUTO) 4.3 10^3/uL (1.7-8.2); BASOPHILS % (AUTO) 0.9 % (0-2); EOSINOPHILS % (AUTO) 1.6 % (0-6); HEMATOCRIT 43.8 % (36.0-47.0); HEMOGLOBIN 14.7 g/dL (12.0-15.5); LYMPHOCYTES % (AUTO) 32.8 % (13-45); MEAN CORPUSCULAR HEMOGLOBIN 28.9 pg (27.0-33.4); MEAN CORPUSCULAR HGB CONC 33.7 g/dL (32.0-36.0); MEAN CORPUSCULAR VOLUME 86 fl (80-97); MONOCYTES % (AUTO) 7.4 % (3-13); PLATELET COUNT 242 10^3/uL (150-450); SEGMENTED NEUTROPHILS % (AUTO) 57.3 % (42-78); TOTAL CELLS COUNTED % (AUTO) 100 %; WHITE BLOOD COUNT 7.4 10^3/uL (4.0-10.5)
[2018-06-22 15:22] LABS: ALANINE AMINOTRANSFERASE 18 U/L (9-52); ALBUMIN 4.6 g/dL (3.5-5.0); ALKALINE PHOSPHATASE 120 U/L (38-126); ANION GAP 9 (5-19); ASPARTATE AMINO TRANSFERASE 34 U/L (14-36); BILIRUBIN,DIRECT 0.4 mg/dL (0.0-0.4); BILIRUBIN,TOTAL 0.8 mg/dL (0.2-1.3); BLOOD UREA NITROGEN 12 mg/dL (7-20); CALCIUM 9.6 mg/dL (8.4-10.2); CARBON DIOXIDE 30 mmol/L (22-30); CHLORIDE 101 mmol/L (98-107); GLUCOSE 148 mg/dL (75-110); POTASSIUM 3.8 mmol/L (3.6-5.0); SODIUM 139.6 mmol/L (137-145); TOTAL PROTEIN 8.3 g/dL (6.3-8.2)
--- NOTE | 2018-06-22 17:59 | ER Document Report ---
ED General - General Chief Complaint: Chest Pain Stated Complaint: CHEST PAIN Time Seen by Provider: 06/22/18 14:06 Primary Care Provider: JULIA THOMAS MD [Primary Care Provider] - Follow up as needed Notes: Patient is complaining of pains across the front of her chest between her breasts this been going on intermittently since last from any. The next day, Thursday, she had no chest pain, but then Thursday, she had a few of these pains and yesterday none. She is now having them again today. She is also had nelson ateral thumb pain for the past week. She says she texts a lot and does not of them may have something to do with her thumb pain. It hurts to move either thumb, in extension. She went to see her primary care provider, Dr. Thomas, because of the problems she is having with her thumbs and just happened to mention that she was having these intermittent chest pains. Dr. Thomas did an EKG in the office and was concerned about the appearance of the anterior precordial leads, primarily lead V2. He sent her here for cardiac evaluation. Patient denies any difficulty breathing or shortness of breath. Denies any fever. Denies nausea, vomiting, or diarrhea. Patient does smoke cigarettes. History of high cholesterol and high blood pressure. History of insulin-dependent diabetes. History of CHF. Patient also incidentally has a "boil" on her private parts since about a week ago. She says it has popped and drained some. Dr. Thomas's office gave her a prescription for an antibiotic. TRAVEL OUTSIDE OF THE [place] IN LAST 30 DAYS: No - Related Data Allergies/Adverse Reactions: aspirin Allergy (Severe, Verified 06/22/18 12:25) Anaphylaxis ibuprofen [Ibuprofen] Allergy (Severe, Verified 06/22/18 12:25) Anaphylaxis ciprofloxacin [From Cipro] Allergy (Intermediate, Verified 06/22/18 12:25) itching codeine Allergy (Verified 06/22/18 12:25) egg [Egg] Allergy (Verified 06/22/18 12:25) Anaphylaxis Penicillins Allergy (Verified 06/22/18 12:25) Anaphylaxis metoclopramide [From Reglan] Adverse Reaction (Severe, Verified 06/22/18 12:25) Past Medical History - Social History Smoking Status: Current Every Day Smoker Frequency of alcohol use: Rare Drug Abuse: Marijuana Family History: Reviewed & Not Pertinent, CAD, Hypertension Patient has suicidal ideation: No Patient has homicidal ideation: No - Past Medical History Cardiac Medical History: Reports: Hx Congestive Heart Failure, Hx Hypertension Pulmonary Medical History: Reports: Hx Sleep Apnea Endocrine Medical History: Reports: Hx Diabetes Mellitus Type 2 Malignancy Medical History: GI Medical History: Reports: Hx Gastroesophageal Reflux Disease, Hx Irritable Bowel Musculoskeletal Medical History: Reports Hx Musculoskeletal Deformity, Reports Hx Musculoskeletal Trauma Psychiatric Medical History: Reports: Hx Anxiety, Hx Depression Infectious Medical History: Past Surgical History: Reports: Hx Breast Surgery - breast reduction, biopsy, Hx Mastectomy, Hx Rectal Surgery - Fistula, hemorrhoids, Hx Tubal Ligation - Immunizations Immunizations up to date: Yes Hx Diphtheria, Pertussis, Tetanus Vaccination: Yes Review of Systems - Review of Systems Notes: REVIEW OF SYSTEMS: CONSTITUTIONAL : Denies fever. EENT: Denies eye, ear, nose or mouth or throat pain or other symptoms. CARDIOVASCULAR: See HPI. RESPIRATORY: Denies cough, chest congestion, or shortness of breath. GASTROINTESTINAL: Denies abdominal pain or nausea, vomiting, or diarrhea. GENITOURINARY: Boil in private parts. Denies difficulty or painful urinating, urinary frequency, blood in urine. MUSCULOSKELETAL: Denies back or neck pain. Denies joint pain or swelling. SKIN: Denies rash or skin lesions. NEUROLOGICAL: Denies LOC or altered mental status. Denies headache. Denies sensory loss or motor deficits. ALL OTHER SYSTEMS REVIEWED AND NEGATIVE. Physical Exam - Vital signs Vitals: Temp Pulse Resp BP Pulse Ox 98.2 F 66 16 152/82 H 97 06/22/18 12:36 06/22/18 12:36 06/22/18 12:36 06/22/18 12:36 06/22/18 12:36 Interpretation: Normal Notes: PHYSICAL EXAMINATION: GENERAL: Well-appearing, in no acute distress. HEAD: Atraumatic, normocephalic. EYES: Pupils equal round and reactive to light, extraocular movements intact. ENT: oropharynx clear without exudates. Moist mucous membranes. NECK: Normal range of motion, supple. LUNGS: Breath sounds clear and equal bilaterally. Some discomfort noted when I press on the midportion of the sternum. HEART: Regular rate and rhythm without murmurs. ABDOMEN: Soft, nontender. No guarding or rebound. No masses. BACK: No tenderness throughout entire back. EXTREMITIES: Normal range of motion without pain. Negative Homans bilaterally. NEUROLOGICAL: Normal speech, normal gait. Normal sensory, motor, and reflex exams. Awake, alert, and oriented x3. Cranial nerves normal. PSYCH: Normal mood, normal affect. SKIN: Warm, dry, no rashes. Course - Re-evaluation Re-evalutation: 06/22/18 18:16 Labs of all been essentially normal, including a troponin and a d-dimer. Patient's EKG does show some ST elevation of lead V2. I discussed all the findings with Dr. Thomas. He asked me to have the middle card tender review the EKG. I called Dr. Esparza who reviewed the EKG and said that he did not think it was anything acute or to be concerned about it he would be available to follow- up the patient in his office. I relayed that information to Dr. Thomas. He asked me to do a second troponin in addition to charge the patient home for follow-up with him if that second troponin is negative. 06/22/18 18:47 Second troponin was the same as the first 1. No change at all. 06/22/18 18:51 Patient now remembers lifting and moving a heavy dresser on , the day before the chest pain began. She thinks she may have stretched or pulled something there. - Vital Signs Vital signs: Temp Pulse Resp BP Pulse Ox 98.2 F 66 22 H 189/93 H 92 06/22/18 12:36 06/22/18 12:36 06/22/18 18:00 06/22/18 17:02 06/22/18 18:00 - Laboratory Result Diagrams: 06/22/18 14:46 06/22/18 14:46 Laboratory results interpreted by me: 06/22/18 14:46 Glucose 148 H Total Protein 8.3 H Discharge - Discharge Clinical Impression: Bilateral thumb pain, Chest pain, non-cardiac, Chest wall muscle strain Condition: Stable Disposition: HOME, SELF-CARE Additional Instructions: CHEST PAIN OF UNCLEAR CAUSE: The exact cause of your chest pain isn't clear. Fortunately, there is no evidence of a dangerous medical condition. Further testing may be required to find the source of the pain. Most often, we find that this pain is coming from the chest wall -- the muscles or rib joints in the chest. But chest pain can come from the lung and lung lining, the esophagus, the heart valves or heart lining, and even the stomach or gallbladder. Rest. Eat lightly until the pain is gone. We may prescribe medicine for pain and inflammation. You should call the physician immediately if the pain radiates to the shoulder, jaw or arms; if you start to run a fever or develop a cough; or if you develop shortness of breath, or other new or alarming symptoms. NORMAL EXAM AND WORKUP: At this time, your examination and workup show no significant abnormality. No significant abnormal physical findings were noted. All laboratory, EKG, and imaging (x-ray, CT scans, ultrasound) studies that were ordered show no significant abnormality. Although your examination and all studies that were ordered showed no significant abnormal finding, there are no examinations and no studies that are 100% accurate. There is always the possibility that some abnormality could exist and not be detected with physical examination or within the limits and capabilities of laboratory and other studies. You should return or follow up as you were instructed on your visit today for further evaluation if your symptoms do not resolve. CHEST WALL PAIN: Your chest pain may be coming from the chest wall. This is often caused by straining the muscles or joints in the chest during physical activity, direct trauma, coughing, or vigorous vomiting. Persons with arthritis are especially prone to this type of pain, due to inflammation of the cartilage joints near the breast bone. Occasionally, no cause can be found. Rest from strenuous physical activity. This kind of chest pain is usually made worse by movement of the chest. Depending on the symptoms, we may prescribe medicine for pain, muscle relaxation, and antiinflammatory effects. If the pain is new, and seems to be due to muscle strain, cold packs can help. Otherwise, apply gentle warmth to the painful area for 15 minutes every hour or two. You should call contact the doctor immediately if things change. Further e valuation is needed if you develop a fever or cough, if the nature of the pain changes, or if you become short of breath. Stop Smoking You should stop smoking. The tar and chemicals in cigarette smoke are harmful. Smoking has been shown to cause: Emphysema and chronic bronchitis Lung cancer Cancer of the mouth, larynx, stomach, and pancreas Heart disease and stroke Stillbirths and miscarriage Premature aging In addition, smoking increases the chances of respiratory infections and ear infections in children of smokers, and increases the risk of cancer in persons exposed to second-hand smoke. Classes are available to help you stop smoking. If you are serious about wanting to quit, we can help arrange this therapy for you, or you can contact the local lung or cancer association. FOLLOW-UP CARE: If you have been referred to a physician for follow-up care, call the physicians office for an appointment as you were instructed or within the next two days. If you experience worsening or a significant change in your symptoms, notify the physician immediately or return to the Emergency Department at any time for re-evaluation. Follow-up with Dr. Thmoas in his office in the next couple of days. Referrals: JULIA THOMAS MD [Primary Care Provider] - Follow up as needed
[2018-06-22 18:59] VITALS: BP 185/105
--- NOTE | 2018-06-22 21:51 | EKG REPORT ---
SEVERITY:- ABNORMAL ECG - SINUS RHYTHM LVH WITH SECONDARY REPOLARIZATION ABNORMALITY ANTERIOR Q WAVES, POSSIBLY DUE TO LVH : Confirmed by: Brandie Esparza MD 22-Jun-2018 21:49:21
== END 2018-06-22 18:57 | disposition home or self-care (01) ==
LOC: ER 12:21
DX: R07.89 Other chest pain (principal); M79.645 Pain in left finger(s); M79.644 Pain in right finger(s); F17.210 Nicotine dependence, cigarettes, uncomplicated; I50.9 Heart failure, unspecified; I11.0 Hypertensive heart disease with heart failure; Z91.012 Allergy to eggs; Z88.3 Allergy status to other anti-infective agents; Z88.6 Allergy status to analgesic agent; Z98.51 Tubal ligation status
CPT/HCPCS: 36415; 71045; 80053; 84484; 85025; 85379; 93005; 93010; 99284

== ENCOUNTER 2018-08-10 09:34 | Emergency (ER) | payer OTHER, MEDICAID ==
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
[2018-08-10] MEDS ORDERED: OXYCODONE-ACETAMINOPHEN 5-325 MG TABLET PO ONE (13:13)
[2018-08-10] MEDS ORDERED: PROMETHAZINE HCL 25 MG TABLET PO ONE (13:14)
[2018-08-10 13:37] VITALS: BP 138/72
--- NOTE | 2018-08-10 16:45 | EKG REPORT ---
SEVERITY:- ABNORMAL ECG - SINUS RHYTHM PROBABLE ANTEROSEPTAL INFARCT, OLD REPOL ABNORMALITY, DIFFUSE LEADS : Confirmed by: Stephen Castillo MD 10-Aug-2018 16:44:51
== END 2018-08-10 13:39 | disposition home or self-care (01) ==
LOC: ER 09:34
DX: M54.2 Cervicalgia (principal); M25.511 Pain in right shoulder; R07.89 Other chest pain; F17.200 Nicotine dependence, unspecified, uncomplicated; V43.62XA Car passenger injured in collision with other type car in traffic accident, initial encounter; I50.9 Heart failure, unspecified; I11.0 Hypertensive heart disease with heart failure; E11.9 Type 2 diabetes mellitus without complications; Z98.51 Tubal ligation status; Z88.6 Allergy status to analgesic agent; Z88.3 Allergy status to other anti-infective agents; Z88.0 Allergy status to penicillin; Z91.012 Allergy to eggs
CPT/HCPCS: 82962; 93005; 93010; 99284

== ENCOUNTER 2018-11-19 13:25 | Observation (INO) | payer MEDICAID, OTHER ==
--- NOTE | 2018-11-19 14:20 | ER Document Report ---
ED Medical Screen (RME) - General Chief Complaint: Pain Stated Complaint: BODY PAIN Time Seen by Provider: 11/19/18 14:17 Primary Care Provider: JULIA THOMAS MD [Primary Care Provider] - Follow up as needed Mode of Arrival: Medic Information source: Patient Notes: 48-year-old female presented to ED for complaint of chest pain radiating down the left arm. She also has gastroparesis with nerve damage to the buttocks and vagina area. She has a prior pain to her vagina to her rectum down the left buttocks and down the left leg. She states she is in the emergency room today for the chest pain going down the left arm with a history of arrhythmia and diabetes and elevated cholesterol. She states she has a long history of gastroparesis and diabetes type 2 and migraines. She states she does smoke a pack a day and smokes marijuana for the pain sometimes. She is on gabapentin for the nerve pain in her rectum buttocks and vagina and she is up to 600 mg which she took just before coming to the emergency room. Patient is alert oriented respirations regular and unlabored speaking in full sentences. She is accompanied by her who states the main reason they are here today is the chest pain. I have greeted and performed a rapid initial assessment of this patient. A comprehensive ED assessment and evaluation of the patient, analysis of test r esults and completion of medical decision making process will be conducted by an additional ED providers. TRAVEL OUTSIDE OF THE [place] IN LAST 30 DAYS: No - Related Data Allergies/Adverse Reactions: aspirin Allergy (Severe, Verified 11/19/18 13:41) Anaphylaxis ibuprofen [Ibuprofen] Allergy (Severe, Verified 11/19/18 13:41) Anaphylaxis ciprofloxacin [From Cipro] Allergy (Intermediate, Verified 11/19/18 13:41) itching codeine Allergy (Verified 11/19/18 13:41) egg [Egg] Allergy (Verified 11/19/18 13:41) Anaphylaxis Penicillins Allergy (Verified 11/19/18 13:41) Anaphylaxis metoclopramide [From Reglan] Adverse Reaction (Severe, Verified 11/19/18 13:41) Past Medical History - Past Medical History Cardiac Medical History: Reports: Hx Congestive Heart Failure, Hx Hypertension Denies: Hx Heart Attack Pulmonary Medical History: Reports: Hx Sleep Apnea Endocrine Medical History: Reports: Hx Diabetes Mellitus Type 2 Renal/ Medical History: Denies: Hx Peritoneal Dialysis Malignancy Medical History: GI Medical History: Reports: Hx Gastroesophageal Reflux Disease, Hx Irritable Bowel Musculoskeltal Medical History: Reports Hx Musculoskeletal Deformity, Reports Hx Musculoskeletal Trauma Psychiatric Medical History: Reports: Hx Anxiety, Hx Depression Infectious Medical History: Past Surgical History: Reports: Hx Breast Surgery - breast reduction, biopsy, Hx Mastectomy, Hx Rectal Surgery - Fistula, hemorrhoids, Hx Tubal Ligation - Immunizations Immunizations up to date: Yes Hx Diphtheria, Pertussis, Tetanus Vaccination: Yes History of Influenza Vaccine for 12/2016 - 05/2017 Season: No Physical Exam - Vital signs Vitals: Temp Pulse Resp BP Pulse Ox 97.6 F 76 18 176/82 H 96 11/19/18 13:28 11/19/18 13:28 11/19/18 13:28 11/19/18 13:28 11/19/18 13:28 Course - Vital Signs Vital signs: Temp Pulse Resp BP Pulse Ox 97.6 F 76 18 176/82 H 96 11/19/18 13:28 11/19/18 13:28 11/19/18 13:28 11/19/18 13:28 11/19/18 13:28 Doctor's Discharge - Discharge Referrals: JULIA THOMAS MD [Primary Care Provider] - Follow up as needed
[2018-11-19 14:29] LABS: ABSOLUTE BASOPHILS # (AUTO) 0.1 10^3/uL (0.0-0.2); ABSOLUTE EOSINOPHILS # (AUTO) 0.1 10^3/uL (0.0-0.6); ABSOLUTE LYMPHOCYTES (AUTO) 2.2 10^3/uL (0.5-4.7); ABSOLUTE MONOCYTES (AUTO) 0.4 10^3/uL (0.1-1.4); ABSOLUTE NEUT (AUTO) 4.1 10^3/uL (1.7-8.2); EOSINOPHILS % (AUTO) 1.1 % (0-6); HEMATOCRIT 42.3 % (36.0-47.0); LYMPHOCYTES % (AUTO) 31.8 % (13-45); MEAN CORPUSCULAR HEMOGLOBIN 28.3 pg (27.0-33.4); MEAN CORPUSCULAR HGB CONC 33.1 g/dL (32.0-36.0); MEAN CORPUSCULAR VOLUME 85 fl (80-97); MONOCYTES % (AUTO) 6.4 % (3-13); PLATELET COUNT 229 10^3/uL (150-450); RED BLOOD COUNT 4.96 10^6/uL (3.72-5.28); RED CELL DISTRIBUTION WIDTH 13.7 % (11.5-14.0); SEGMENTED NEUTROPHILS % (AUTO) 59.7 % (42-78); TOTAL CELLS COUNTED % (AUTO) 100 %; WHITE BLOOD COUNT 6.8 10^3/uL (4.0-10.5)
[2018-11-19 14:30] LABS: ALBUMIN 4.5 g/dL (3.5-5.0); ALKALINE PHOSPHATASE 107 U/L (38-126); ANION GAP 10 (5-19); ASPARTATE AMINO TRANSFERASE 22 U/L (14-36); BILIRUBIN,DIRECT 0.2 mg/dL (0.0-0.4); BILIRUBIN,TOTAL 0.7 mg/dL (0.2-1.3); BLOOD UREA NITROGEN 12 mg/dL (7-20); CALCIUM 9.4 mg/dL (8.4-10.2); CARBON DIOXIDE 30 mmol/L (22-30); CHLORIDE 99 mmol/L (98-107); GLUCOSE 162 mg/dL (75-110); POTASSIUM 4.1 mmol/L (3.6-5.0); TOTAL PROTEIN 7.7 g/dL (6.3-8.2)
[2018-11-19 14:49] LABS: CREATINE KINASE MB 0.56 ng/mL (<4.55)
[2018-11-19 15:01] LABS: TROPONIN I < 0.012 ng/mL
--- NOTE | 2018-11-19 15:18 | RADIOLOGY REPORT (SQ) ---
EXAM DESCRIPTION: CHEST 2 VIEWS COMPLETED DATE/TIME: 11/19/2018 3:07 pm REASON FOR STUDY: Chest pain radiating down the left arm COMPARISON: None. EXAM PARAMETERS: NUMBER OF VIEWS: two views TECHNIQUE: Digital Frontal and Lateral radiographic views of the chest acquired. RADIATION DOSE: NA LIMITATIONS: none FINDINGS: LUNGS AND PLEURA: Unchanged mild diffuse bilateral interstitial pulmonary opacity MEDIASTINUM AND HILAR STRUCTURES: No masses or contour abnormalities. HEART AND VASCULAR STRUCTURES: Cardiomegaly. BONES: Disc degenerative disease of the thoracic spine. HARDWARE: None in the chest. OTHER: No other significant finding. IMPRESSION: Unchanged mild diffuse bilateral interstitial pulmonary opacity, likely edema in the set ting of cardiomegaly. No focal airspace opacity. TECHNICAL DOCUMENTATION: JOB ID: [id number] [email or web address]- All Rights Reserved Reading location - IP/workstation name: [email or web address]
[2018-11-19 17:01] LABS: APPEARANCE,URINE CLEAR; BILIRUBIN,URINE NEGATIVE (NEGATIVE); COLOR,URINE YELLOW; GLUCOSE, URINE NEGATIVE (NEGATIVE); KETONES,URINE NEGATIVE (NEGATIVE); LEUKOCYTE ESTERASE,URINE NEGATIVE (NEGATIVE); NITRITE,URINE NEGATIVE (NEGATIVE); PROTEIN,URINE NEGATIVE (NEGATIVE); URINE SPECIFIC GRAVITY 1.015; UROBILINOGEN,URINE NEGATIVE mg/dL (<2.0)
[2018-11-19] MEDS ORDERED: MORPHINE SULFATE 10 MG/ML INJ IV ONE (17:16)
[2018-11-19] MEDS: NITROGLYCERIN 0.4 MG/TAB 25 TAB/BOTTLE SL PRN ×3 (18:14→19:56)
--- NOTE | 2018-11-19 19:46 | ER Document Report ---
ED General - General Chief Complaint: Pain Stated Complaint: BODY PAIN Time Seen by Provider: 11/19/18 14:17 Primary Care Provider: JULIA THOMAS MD [Primary Care Provider] - Follow up as needed Mode of Arrival: Medic Notes: Patient is a morbidly obese 48-year-old female presents to the emergency department with left-sided chest pressure. Patient states approximately around noon she started with left-sided chest pressure that goes into her left shoulder and radiates down her left arm. Patient rates this pressure out of 5 out of 10. Patient is also complaining of pressure in her vaginal area. States she does have neuropathy from her diabetes and does take gabapentin for same. Patient states her pain feels similar. Patient's denying any vaginal discharge or dysuria. She is denying any vaginal rash. Patient's denying any respiratory distress or waking hours in a sweat when her left-sided chest pain started. Patient voices that she is allergic to aspirin and will not take it. Patient states her primary care provider is Dr. 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 States she feels as though her last cardiac stress test was over a year ago. Patient's denying that she is ever had a cardiac catheterization. TRAVEL OUTSIDE OF THE [place] IN LAST 30 DAYS: No - Related Data Allergies/Adverse Reactions: aspirin Allergy (Severe, Verified 11/19/18 13:41) Anaphylaxis ibuprofen [Ibuprofen] Allergy (Severe, Verified 11/19/18 13:41) Anaphylaxis ciprofloxacin [From Cipro] Allergy (Intermediate, Verified 11/19/18 13:41) itching codeine Allergy (Verified 11/19/18 13:41) egg [Egg] Allergy (Verified 11/19/18 13:41) Anaphylaxis Penicillins Allergy (Verified 11/19/18 13:41) Anaphylaxis metoclopramide [From Reglan] Adverse Reaction (Severe, Verified 11/19/18 13:41) Past Medical History - General Information source: Patient - Social History Smoking Status: Current Every Day Smoker Chew tobacco use (# tins/day): No Frequency of alcohol use: None Drug Abuse: Marijuana Family History: Reviewed & Not Pertinent, CAD, Hypertension Patient has suicidal ideation: No Patient has homicidal ideation: No - Past Medical History Cardiac Medical History: Reports: Hx Atrial Fibrillation - not on medication, Hx Congestive Heart Failure, Hx Hypertension Denies: Hx Heart Attack Pulmonary Medical History: Reports: Hx Sleep Apnea Endocrine Medical History: Reports: Hx Diabetes Mellitus Type 2 Renal/ Medical History: Denies: Hx Peritoneal Dialysis Malignancy Medical History: GI Medical History: Reports: Hx Gastroesophageal Reflux Disease, Hx Irritable Bowel Musculoskeletal Medical History: Reports Hx Musculoskeletal Deformity, Reports Hx Musculoskeletal Trauma Psychiatric Medical History: Reports: Hx Anxiety, Hx Depression Infectious Medical History: Past Surgical History: Reports: Hx Breast Surgery - breast reduction, biopsy, Hx Mastectomy, Hx Rectal Surgery - Fistula, hemorrhoids, Hx Tubal Ligation - Immunizations Immunizations up to date: Yes Hx Diphtheria, Pertussis, Tetanus Vaccination: Yes Review of Systems - Review of Systems Constitutional: denies: Fever EENT: No symptoms reported Cardiovascular: See HPI Respiratory: See HPI Gastrointestinal: No symptoms reported Genitourinary: See HPI Female Genitourinary: No symptoms reported Skin: No symptoms reported Hematologic/Lymphatic: No symptoms reported Neurological/Psychological: No symptoms reported Physical Exam - Vital signs Vitals: Temp Pulse Resp BP Pulse Ox 97.6 F 76 18 176/82 H 96 11/19/18 13:28 11/19/18 13:28 11/19/18 13:28 11/19/18 13:28 11/19/18 13:28 - Notes Notes: GENERAL: Alert, interacts well. No acute distress. HEAD: Normocephalic, atraumatic. EYES: Pupils equal, round, and reactive to light. Extraocular movements intact. ENT: Oral mucosa moist, tongue midline. NECK: Full range of motion. Supple. Trachea midline. LUNGS: Clear to auscultation bilaterally, no wheezes, rales, or rhonchi. No respiratory distress. HEART: Regular rate and rhythm. No murmur ABDOMEN: Soft, non-tender. Non-distended. Bowel sounds present in all 4 quadrants. EXTREMITIES: Moves all 4 extremities spontaneously. No edema, normal radial and dorsalis pedis pulses bilaterally. No cyanosis. BACK: no cervical, thoracic, lumbar midline tenderness. No saddle anesthesia, normal distal neurovascular exam. NEUROLOGICAL: Alert and oriented x3. Normal speech. cranial nerves II through XI I grossly intact. PSYCH: Normal affect, normal mood. SKIN: Warm, dry, normal turgor. No rashes or lesions noted. 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 No swollen lymph nodes denied bilaterally. Course - Re-evaluation Re-evalutation: 11/19/18 19:45 I discussed this case with hospitalist Dr. Clark. Patient's primary care provider is Dr. Thomas although Dr. Clark is on-call for Dr. Thomas. Dr. Clark would like the patient placed in IMCU for cardiac rule out. Upon reassessment of the patient she is sleeping in no apparent distress. Easily arousable and states she continues without any chest pain. 11/19/18 19:49 Patient's EKG shows a sinus rhythm at 62, QTc 411, no ST segment elevations or depressions noted. - Vital Signs Vital signs: Temp Pulse Resp BP Pulse Ox 97.6 F 76 18 176/82 H 96 11/19/18 13:28 11/19/18 13:28 11/19/18 13:28 11/19/18 13:28 11/19/18 13:28 - Laboratory Result Diagrams: 11/19/18 12:54 11/19/18 12:54 Laboratory results interpreted by me: 11/19/18 12:54 Glucose 162 H Lipase 347.4 H Discharge - Discharge Clinical Impression: Chest pain Qualifiers: Chest pain type: unspecified Qualified Code(s): R07.9 - Chest pain, unspecified Condition: Stable Disposition: ADMITTED INPATIENT Admitting Provider: Eduardo Unit Admitted: [facility] Referrals: JULIA THOMAS MD [Primary Care Provider] - Follow up as needed
[2018-11-19] MEDS: OXYCODONE-ACETAMINOPHEN 5-325 MG TABLET PO PRN ×3 (20:14→23:47)
[2018-11-19] MEDS: PROMETHAZINE HCL 25 MG TABLET PO PRN ×2 (20:15→23:52)
[2018-11-19] MEDS ORDERED: ACETAMINOPHEN 325 MG TABLET PO PRN (20:49)
[2018-11-19] MEDS ORDERED: LIRAGLUTIDE SQ SCH (21:00)
[2018-11-19] MEDS: GLIPIZIDE XL 5 MG TAB.ER.24 PO SCH (21:39)
[2018-11-19] MEDS: GABAPENTIN 100 MG CAPSULE PO SCH (21:41)
[2018-11-19] MEDS: METOPROLOL TARTRATE 25 MG TABLET PO SCH (21:42)
[2018-11-19] MEDS: ATORVASTATIN CALCIUM 80 MG TABLET PO SCH (21:42)
[2018-11-19] MEDS: PANTOPRAZOLE SODIUM 40 MG TABLET.DR PO SCH (21:43)
[2018-11-19] MEDS: CLOPIDOGREL BISULFATE 75 MG TABLET PO SCH (21:43)
[2018-11-19] MEDS: ENOXAPARIN SODIUM INJ 60 MG/0.6 ML DISP.SYRIN SUBCUT SCH (21:44)
[2018-11-19 22:28] LABS: ABSOLUTE BASOPHILS # (AUTO) 0.1 10^3/uL (0.0-0.2); ABSOLUTE EOSINOPHILS # (AUTO) 0.1 10^3/uL (0.0-0.6); ABSOLUTE LYMPHOCYTES (AUTO) 3.2 10^3/uL (0.5-4.7); ABSOLUTE MONOCYTES (AUTO) 0.7 10^3/uL (0.1-1.4); ABSOLUTE NEUT (AUTO) 6.3 10^3/uL (1.7-8.2); BASOPHILS % (AUTO) 0.7 % (0-2); EOSINOPHILS % (AUTO) 0.8 % (0-6); HEMATOCRIT 43.4 % (36.0-47.0); HEMOGLOBIN 14.5 g/dL (12.0-15.5); LYMPHOCYTES % (AUTO) 30.5 % (13-45); MEAN CORPUSCULAR HEMOGLOBIN 28.4 pg (27.0-33.4); MEAN CORPUSCULAR HGB CONC 33.3 g/dL (32.0-36.0); MEAN CORPUSCULAR VOLUME 85 fl (80-97); MONOCYTES % (AUTO) 6.9 % (3-13); PLATELET COUNT 217 10^3/uL (150-450); RED BLOOD COUNT 5.09 10^6/uL (3.72-5.28); RED CELL DISTRIBUTION WIDTH 13.6 % (11.5-14.0); SEGMENTED NEUTROPHILS % (AUTO) 61.1 % (42-78); TOTAL CELLS COUNTED % (AUTO) 100 %; WHITE BLOOD COUNT 10.3 10^3/uL (4.0-10.5)
[2018-11-20] MEDS: OXYCODONE-ACETAMINOPHEN 5-325 MG TABLET PO PRN ×2 (05:54→12:19)
[2018-11-20] MEDS: GABAPENTIN 100 MG CAPSULE PO SCH ×3 (05:55→21:44)
[2018-11-20] MEDS: PROMETHAZINE HCL 25 MG TABLET PO PRN ×2 (05:59→12:22)
[2018-11-20] MEDS: FUROSEMIDE 20 MG TABLET PO SCH (08:38)
[2018-11-20] MEDS: CLOPIDOGREL BISULFATE 75 MG TABLET PO SCH (10:29)
[2018-11-20] MEDS: GLIPIZIDE XL 5 MG TAB.ER.24 PO SCH (10:29)
[2018-11-20] MEDS: PANTOPRAZOLE SODIUM 40 MG TABLET.DR PO SCH (10:30)
[2018-11-20] MEDS: ENOXAPARIN SODIUM INJ 60 MG/0.6 ML DISP.SYRIN SUBCUT SCH ×2 (10:30→21:47)
[2018-11-20] MEDS: METOPROLOL TARTRATE 25 MG TABLET PO SCH (10:30)
--- NOTE | 2018-11-20 13:10 | PDOC H&P ---
History of Present Illness Admission Date/PCP: 11/19/18 19:49 JULIA THOMAS MD History of Present Illness: KALI NYE is a 48 year old female, she came to the emergency room for evaluation of chest pain, she stated that the chest pain started yesterday after she took gabapentin for neuropathy symptoms,. The chest pain is left-sided she said the pain radiates to the shoulder it feels tight. In the emergency room she was evaluated, twelve-lead EKG was done, it was sinus rhythm there is no acute ST-T wave changes, there is a Q wave in V1 V2 lead. She has multiple risk factors for ischemic heart disease including diabetes mellitus, tobacco abuse. When I saw her on the floor, the chest pain is reproducible on palpation of the chest wall suggesting that this is probably noncardiac chest pain. She also had a Lexiscan Cardiolite stress test on December 16, 2016 about 2 years ago the test did not show any definitive scintigraphic evidence of Lexiscan induced ischemia there was no scintigraphic evidence of myocardial infarction the estimated ejection fraction was 54%. 3 sets of cardiac enzymes were negative for acute NM. She was admitted for observation and evaluation of her symptoms Past Medical History Cardiac Medical History: Reports: Hypertension Pulmonary Medical History: Reports: Sleep Apnea Endocrine Medical History: Reports: Diabetes Mellitus Type 2, Obesity Malignancy Medical History: GI Medical History: Reports: Gastroesophageal Reflux Disease Psychiatric Medical History: Reports: Depression Hematology: Reports: Anemia Infectious Medical History: Past Surgical History Past Surgical History: Reports: Mastectomy, Tubal Ligation Social History Smoking Status: Current Every Day Smoker Cigarettes Packs Per Day: 1 Frequency of Alcohol Use: None Hx Recreational Drug Use: No Drugs: None Hx Prescription Drug Abuse: No - Advance Directive Resuscitation Status: Full Code Family History Family History: Reviewed & Not Pertinent, CAD, Hypertension Parental Family History Reviewed: Yes Children Family History Reviewed: Yes Sibling(s) Family History Reviewed.: Yes Medication/Allergy Home Medications: Atorvastatin Calcium [Lipitor 20 mg Tablet] 20 mg PO QHS 11/19/18 Dexlansoprazole [Dexilant 60 mg Capsule] 60 mg PO DAILY 11/19/18 Furosemide [Lasix 20 mg Tablet] 20 mg PO QAM 11/19/18 Gabapentin [Neurontin 100 mg Capsule] 200 mg PO Q8 11/19/18 Glipizide [Glipizide Xl] 5 mg PO DAILY 11/19/18 Levocetirizine Dihydrochloride [24Hr Allergy Relief] 5 mg PO QPM 11/19/18 Liraglutide [Victoza 2-Dane] 0.8 mg SQ DAILY 11/19/18 Metoprolol Tartrate [Lopressor 25 mg Tablet] 25 mg PO DAILY 11/19/18 Allergies/Adverse Reactions: aspirin Allergy (Severe, Verified 11/19/18 13:41) Anaphylaxis ibuprofen [Ibuprofen] Allergy (Severe, Verified 11/19/18 13:41) Anaphylaxis ciprofloxacin [From Cipro] Allergy (Intermediate, Verified 11/19/18 13:41) itching codeine Allergy (Verified 11/19/18 13:41) egg [Egg] Allergy (Verified 11/19/18 13:41) Anaphylaxis Penicillins Allergy (Verified 11/19/18 13:41) Anaphylaxis metoclopramide [From Reglan] Adverse Reaction (Severe, Verified 11/19/18 13:41) acetaminophen [From [place]] Adverse Reaction (Verified 11/19/18 22:55) VOMITING hydrocodone [From [place]] Adverse Reaction (Verified 11/19/18 22:55) VOMITING Review of Systems Constitutional: ABSENT: chills, fever(s), headache(s), weight gain, weight loss Eyes: ABSENT: visual disturbances Ears: ABSENT: hearing changes Cardiovascular: PRESENT: chest pain Respiratory: ABSENT: cough, hemoptysis Gastrointestinal: ABSENT: abdominal pain, constipation, diarrhea, hematemesis, hematochezia, nausea, vomiting Genitourinary: ABSENT: dysuria, hematuria Musculoskeletal: ABSENT: joint swelling Integumentary: ABSENT: rash, wounds Neurological: ABSENT: abnormal gait, abnormal speech, confusion, dizziness, focal weakness, syncope Psychiatric: ABSENT: anxiety, depression, homidical ideation, suicidal ideation Endocrine: ABSENT: cold intolerance, heat intolerance, menstrual abnormalities, polydipsia, polyuria Hematologic/Lymphatic: ABSENT: easy bleeding, easy bruising, lymphadenopathy Physical Exam Vital Signs: Temp Pulse Resp BP Pulse Ox 98.3 F 75 18 143/82 H 98 11/20/18 08:32 11/20/18 08:32 11/20/18 08:32 11/20/18 08:32 11/20/18 08:32 Intake & Output 11/19/18 11/20/18 11/21/18 06:59 06:59 06:59 Intake Total 832 Balance 832 Weight 142.8 kg General appearance: PRESENT: no acute distress, well-developed, well-nourished Head exam: PRESENT: atraumatic, normocephalic Eye exam: PRESENT: conjunctiva pink, EOMI, PERRLA Ear exam: PRESENT: normal external ear exam Mouth exam: PRESENT: moist, tongue midline Neck exam: PRESENT: full ROM Respiratory exam: PRESENT: clear to auscultation nelson Cardiovascular exam: PRESENT: RRR, +S1, +S2 Vascular exam: PRESENT: normal capillary refill GI/Abdominal exam: PRESENT: normal bowel sounds, soft Rectal exam: PRESENT: deferred Neurological exam: PRESENT: alert, awake, oriented to person, oriented to place, oriented to time, oriented to situation, CN II-XII grossly intact Psychiatric exam: PRESENT: appropriate affect, normal mood Skin exam: PRESENT: dry, intact, warm Results Laboratory Results: 11/19/18 22:15 11/19/18 12:54 11/19/18 11/19/18 11/19/18 12:54 12:54 12:54 WBC 6.8 RBC 4.96 Hgb 14.0 Hct 42.3 MCV 85 MCH 28.3 MCHC 33.1 RDW 13.7 Plt Count 229 Seg Neutrophils % 59.7 Sodium 139.0 Potassium 4.1 Chloride 99 Carbon Dioxide 30 Anion Gap 10 BUN 12 Creatinine 0.69 Est GFR ( Amer) > 60 Glucose 162 H Calcium 9.4 Total Bilirubin 0.7 AST 22 Alkaline Phosphatase 107 Total Protein 7.7 Albumin 4.5 Lipase 347.4 H Serum HCG, Qual NEGATIVE Urine Color Urine Appearance Urine pH Ur Specific Dorena Urine Protein Urine Glucose (UA) Urine Ketones Urine Blood Urine Nitrite Ur Leukocyte Esterase Urine WBC (Auto) Urine RBC (Auto) 11/19/18 11/19/18 16:15 22:15 WBC 10.3 RBC 5.09 Hgb 14.5 Hct 43.4 MCV 85 MCH 28.4 MCHC 33.3 RDW 13.6 Plt Count 217 Seg Neutrophils % 61.1 Sodium Potassium Chloride Carbon Dioxide Anion Gap BUN Creatinine Est GFR ( Amer) Glucose Calcium Total Bilirubin AST Alkaline Phosphatase Total Protein Albumin Lipase Serum HCG, Qual Urine Color YELLOW Urine Appearance CLEAR Urine pH 8.0 Ur Specific [place] 1.015 Urine Protein NEGATIVE Urine Glucose (UA) NEGATIVE Urine Ketones NEGATIVE Urine Blood NEGATIVE Urine Nitrite NEGATIVE Ur Leukocyte Esterase NEGATIVE Urine WBC (Auto) 1 Urine RBC (Auto) 2 11/19/18 11/19/18 11/19/18 12:54 12:54 22:15 CK-MB (CK-2) 0.56 Troponin I < 0.012 < 0.012 NT-Pro-B Natriuret Pep 72 11/20/18 11/20/18 04:11 10:22 CK-MB (CK-2) Troponin I < 0.012 < 0.012 NT-Pro-B Natriuret Pep Impressions: Chest X-Ray 11/19/18 14:17 IMPRESSION: Unchanged mild diffuse bilateral interstitial pulmonary opacity, likely edema in the setting of cardiomegaly. No focal airspace opacity. Assessment & Plan - Diagnosis (1) Chest pain Qualifiers: Chest pain type: unspecified Qualified Code(s): R07.9 - Chest pain, unspecified Is this a current diagnosis for this admission?: Yes Plan: Patient is presenting with chest pain, the chest pain is reproducible on palpation of the chest wall though the chest pain is not typical angina because the chest pain was not provoked on exertion and relieved by rest but she has multiple risk factors for ischemic heart disease including diabetes mellitus, tobacco abuse, family history, the behavior of the chest pain also is suspicious for ischemia, the pattern of the radiation, the nature of the chest pain which she described as pressure. She will be treated with Lovenox, antiplatelet, she cannot take aspirin because she has reaction with tongue swelling when she took aspirin in the past. (2) T2DM (type 2 diabetes mellitus) Qualifiers: Diabetes mellitus half-way insulin use: without long chain beamer use Diabetes mellitus complication status: with neurologic complications Diabetes mellitus complication detail: with polyneuropathy Qualified Code(s): E11.42 - Type 2 diabetes mellitus with diabetic polyneuropathy Is this a current diagnosis for this admission?: Yes
[2018-11-20] MEDS ORDERED: GLUCAGON,HUMAN RECOMB 1 MG INJ IM PRN (14:30)
[2018-11-20] MEDS ORDERED: DEXTROSE 40% GEL 15 GM TUBE X 2 PO PRN (14:30)
[2018-11-20] MEDS ORDERED: DEXTROSE 50%-WATER SYRINGE 12.5 GM/25 ML DOSE IV PRN (14:30)
[2018-11-20] MEDS ORDERED: DEXTROSE 40% GEL 15 GM TUBE PO PRN (14:30)
[2018-11-20] MEDS ORDERED: DEXTROSE 50%-WATER SYRINGE 25 GM/50 ML DOSE IV PRN (14:30)
--- NOTE | 2018-11-20 15:55 | RADIOLOGY REPORT (SQ) ---
EXAM DESCRIPTION: CTA CHEST COMPLETED DATE/TIME: 11/20/2018 3:37 pm REASON FOR STUDY: chest pain COMPARISON: 08/15/2017 TECHNIQUE: CT scan of the chest performed using helical scanning technique with dynamic intravenous contrast injection. Images reviewed with lung, soft tissue and bone windows. Reconstructed coronal and sagittal MPR images reviewed. Additional 3 dimensional post-processing performed to develop Maximal Intensity Projection images (WI P). All images stored on PACS. All CT scanners at this facility use dose modulation, iterative reconstruction, and/or weight based d osing when appropriate to reduce radiation dose to as low as reasonably achievable (ALARA). [facility]: Dose Right [facility]: CareDose [facility]: Dose Right [facility]: Teradose 4D [facility]: Nexalogy CONTRAST TYPE AND DOSE: contrast/concentration: Isovue 350.00 mg/ml; Total Contrast Delivered: 65.0 ml; Total Saline Delivered: 80.0 ml Contrast bolus optimized for the pulmonary arteries. Not diagnostic for the aorta. RENAL FUNCTION: GFR > 60. RADIATION DOSE: CT Rad equipment meets quality standard of care and radiation dose reduction techniq ues were employed. CTDIvol: 15.6 - 22.5 mGy. DLP: 623 mGy-cm. . LIMITATIONS: None. FINDINGS: LUNGS AND PLEURA: Diffuse ground-glass attenuation without evidence of consolidation which is a chronic finding. No effusions. AORTA AND GREAT VESSELS: No aneurysm. Contrast bolus not optimized for the aorta. HEART: No pericardial effusion. Cardiomegaly. PULMONARY ARTERIES: No emboli visualized in the main pulmonary arteries or the segmental branches. HILAR AND MEDIASTINAL STRUCTURES: No identified masses or abnormal nodes. HARDWARE: None in the chest. UPPER ABDOMEN: No significant findings. Limited exam. THYROID AND OTHER SOFT TISSUES: No masses. No adenopathy. BONES: Nothing acute. 3D MIPS: Confirm above findings. OTHER: No other significant finding. IMPRESSION: No PE. Chronic interstitial lung disease. COMMENT: Quality ID # [id number]: Final reports with documentation of one or more dose reduction techniques (e.g., Automated exposure control, adjustment of the mA and/or kV according to patient size, use of iterative reconstruction technique) TECHNICAL DOCUMENTATION: JOB ID: [id number] [employer]- All Rights Reserved Reading location - IP[facility]workstation name: [email or web address]
[2018-11-20] MEDS: INSULIN LISPRO 100 UNIT/ML 3 ML VIAL SUBCUT SCH ×2 (17:14→21:46)
--- NOTE | 2018-11-20 19:12 | EKG REPORT ---
SEVERITY:- ABNORMAL ECG - SINUS RHYTHM MULTIPLE VENTRICULAR PREMATURE COMPLEXES PROBABLE LEFT VENTRICULAR HYPERTROPHY : Confirmed by: Brandie Esparza MD 20-Nov-2018 19:11:31
--- NOTE | 2018-11-20 19:12 | EKG REPORT ---
SEVERITY:- ABNORMAL ECG - SINUS RHYTHM VENTRICULAR PREMATURE COMPLEX LVH WITH SECONDARY REPOLARIZATION ABNORMALITY ANTERIOR Q WAVES, POSSIBLY DUE TO LVH : Confirmed by: Brandie Esparza MD 20-Nov-2018 19:11:36
--- NOTE | 2018-11-20 20:13 | PDOC CONSULTATION ---
Consultation-Blank Consultation: CARDIOLOGY CONSULTATION by Dr. Brandie Esparza on 11/16/2018. Patient seen at 2:45 PM on 11/20/2018. 60 minutes spent on this patient more than 50% of time spent in direct patient care. REASON FOR CONSULTATION: Chest pain. CONSULT REQUESTING PHYSICIAN: Dr. Clark. HISTORY OF PRESENT ILLNESS: Patient is a morbidly obese 48-year-old Afro- [place] female with known history of hypertension, diabetes mellitus, gastroparesis, with prior known history of chest wall pain admitted with chest pain. She states that the pain started suddenly yesterday when she was walking watching the TV with her . The pain is clearly chest wall pain and reproducible by pressing on the chest. It is not related to exertion, but movements of the pectoral muscles and movements of the left shoulder causes and reproduces the pain. The patient is EKG does not show any acute ischemia, and serial troponins are negative. There is no palpitations. The patient has chronic orthopnea. There is no leg edema or PND. There is no syncope. There is no wheezing, but she states with the chest pain she becomes short of breath. She has a history of obstructive sleep apnea, but does not use CPAP or BiPAP. Past Medical History Cardiac Medical History: Reports: Hypertension Pulmonary Medical History: Reports: Sleep Apnea Endocrine Medical History: Reports: Diabetes Mellitus Type 2, Obesity Malignancy Medical History: GI Medical History: Reports: Gastroesophageal Reflux Disease Psychiatric Medical History: Reports: Depression Hematology: Reports: Anemia Infectious Medical History: Past Surgical History Past Surgical History: Reports: Mastectomy, Tubal Ligation Social History Smoking Status: Current Every Day Smoker Cigarettes Packs Per Day: 1 Frequency of Alcohol Use: None Hx Recreational Drug Use: No Drugs: None Hx Prescription Drug Abuse: No - Advance Directive Resuscitation Status: Full Code. Her is her surrogate healthcare decision maker. Family History Family History: Reviewed & Not Pertinent, CAD, Hypertension Parental Family History Reviewed: Yes Children Family History Reviewed: Yes Sibling(s) Family History Reviewed.: Yes Medication/Allergy Home Medications: Atorvastatin Calcium [Lipitor 20 mg Tablet] 20 mg PO QHS 11/19/18 Dexlansoprazole [Dexilant 60 mg Capsule] 60 mg PO DAILY 11/19/18 Furosemide [Lasix 20 mg Tablet] 20 mg PO QAM 11/19/18 Gabapentin [Neurontin 100 mg Capsule] 200 mg PO Q8 11/19/18 Glipizide [Glipizide Xl] 5 mg PO DAILY 11/19/18 Levocetirizine Dihydrochloride [24Hr Allergy Relief] 5 mg PO QPM 11/19/18 Liraglutide [Victoza 2-Dane] 0.8 mg SQ DAILY 11/19/18 Metoprolol Tartrate [Lopressor 25 mg Tablet] 25 mg PO DAILY 11/19/18 Allergies/Adverse Reactions: aspirin Allergy (Severe, Verified 11/19/18 13:41) Anaphylaxis ibuprofen [Ibuprofen] Allergy (Severe, Verified 11/19/18 13:41) Anaphylaxis ciprofloxacin [From Cipro] Allergy (Intermediate, Verified 11/19/18 13:41) itching codeine Allergy (Verified 11/19/18 13:41) egg [Egg] Allergy (Verified 11/19/18 13:41) Anaphylaxis Penicillins Allergy (Verified 11/19/18 13:41) Anaphylaxis metoclopramide [From Reglan] Adverse Reaction (Severe, Verified 11/19/18 13:41) acetaminophen [From [place]] Adverse Reaction (Verified 11/19/18 22:55) VOMITING hydrocodone [From [place]] Adverse Reaction (Verified 11/19/18 22:55) VOMITING Review of Systems Constitutional: ABSENT: chills, fever(s), headache(s), weight gain, weight loss Eyes: ABSENT: visual disturbances Ears: ABSENT: hearing changes Cardiovascular: PRESENT: chest pain Respiratory: ABSENT: cough, hemoptysis Gastrointestinal: ABSENT: abdominal pain, constipation, diarrhea, hematemesis, hematochezia, nausea, vomiting Genitourinary: ABSENT: dysuria, hematuria Musculoskeletal: ABSENT: joint swelling Integumentary: ABSENT: rash, wounds Neurological: ABSENT: abnormal gait, abnormal speech, confusion, dizziness, focal weakness, syncope Psychiatric: ABSENT: anxiety, depression, homidical ideation, suicidal ideation Endocrine: ABSENT: cold intolerance, heat intolerance, menstrual abnormalities, polydipsia, polyuria Hematologic/Lymphatic: ABSENT: easy bleeding, easy bruising, lymphadenopathy PHYSICAL EXAMINATION: The patient is morbidly obese. She is well-groomed. Selected Entries 11/20/18 11/20/18 11:06 15:12 Temperature 98.2 F 97.4 F Temperature Oral Oral Source Pulse Rate 67 63 Respiratory 18 20 Rate Blood Pressure 141/75 H 154/95 H Blood Pressure 97 114 Mean BP Location Right Arm Right Arm BP Position Supine Sitting O2 Sat by Pulse 98 98 Oximetry Oxygen Delivery Room Air Room Air Method HEAD: Is atraumatic normocephalic. EYES: Pupils equal round regular reactive to light accommodation. Extraocular movements are normal. There is no conjunctival pallor. There is no scleral icterus. ENT is negative. NECK: Is supple. There is no JVD. Carotids are equal there is no bruits. There is no JVD. Carotids equal there is no bruits. There is no lymphadenopathy. There is no goiter. There is no accessory muscle respiration use. CHEST: Shows diminished air entry prolonged expiration. On palpation there is reproducible clinical symptoms of chest pain on pressing on the left front of the chest. Also movements of the left shoulder the pain is reproduced. Hence clearly this is noncardiac musculoskeletal pain. HEART: S1-S2 is heard there is no S3 gallop. There is no S3 gallop. There is systolic murmur left sternal border and the apex there is no rub. ABDOMEN: Soft. Nontender. There is no hepatospleno megaly. Bowel sounds well heard. There is no tender areas masses. EXTREMITIES: Femorals are deep femoral. Femorals are diminished. Leg pulses are diminished. There is trace pedal edema. There is no DVT or cellulitis. There is no calf tenderness. 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 PSYCHIATRIC: Patient judgment insight are intact. She appears to be slightly anxious. Current Medications Generic Name Dose Route Start Last Admin Trade Name Freq PRN Reason Stop Dose Admin Acetaminophen 650 mg 11/19/18 20:49 Tylenol 325 Mg Tablet PO 12/19/18 20:48 Q4HP PRN FOR HEADACHE Atorvastatin Calcium 80 mg 11/19/18 22:00 11/19/18 21:42 Lipitor 80 Mg Tablet PO 12/19/18 21:59 80 mg QHS DENZEL Administration Clopidogrel Bisulfate 75 mg 11/19/18 21:00 11/20/18 10:29 Plavix 75 Mg Tablet PO 12/19/18 20:59 75 mg DAILY DENZEL Administration Dextrose 12.5 gm 11/20/18 14:30 Dextrose Inj 50% Syringe (25 Gm/50 Ml) IV 12/20/18 14:29 PRN PRN FOR BG 50-69 IN ALERT PATIENT Protocol Dextrose 25 gm 11/20/18 14:30 Dextrose Inj 50% Syringe (25 Gm/50 Ml) IV 12/20/18 14:29 PRN PRN Protocol Enoxaparin Sodium 50 mg 11/19/18 22:00 11/20/18 10:30 Lovenox Inj 60 Mg/0.6 Ml Disp.Syrin SUBCUT 12/19/18 21:59 50 mg Q12 DENZEL Administration Furosemide 20 mg 11/20/18 08:00 11/20/18 08:38 Lasix 20 Mg Tablet PO 12/20/18 07:59 20 mg QAM DENZEL Administration Gabapentin 200 mg 11/19/18 22:00 11/20/18 14:17 Neurontin 100 Mg Capsule PO 12/19/18 21:59 200 mg Q8 DENZEL Administration Glipizide 5 mg 11/19/18 22:00 11/20/18 10:29 Glucotrol Xl 5 Mg Tab.Er PO 12/19/18 21:59 5 mg DAILY DENZEL Administration Glucagon 1 mg 11/20/18 14:30 Glucagen Inj 1 Mg Vial IM 12/20/18 14:29 PRN PRN EVALUATE FOR BG < 70 Protocol Glucose 15 gm 11/20/18 14:30 Glutose 40% Gel 15 Gm Tube PO 12/20/18 14:29 PRN PRN FOR BG 50-69 IN ALERT PATIENT Protocol Glucose 30 gm 11/20/18 14:30 Glutose 40% Gel 15 Gm Tube PO 12/20/18 14:29 PRN PRN FOR BG < 50 IN ALERT PATIENT Protocol Insulin Human Lispro 0 - 12 unit 11/20/18 16:00 11/20/18 17:14 Humalog Insulin 100 Unit/1 Ml 3 Ml Vial SUBCUT 12/20/18 15:59 Not Given ACHS [facility] Protocol Metoprolol Tartrate 25 mg 11/19/18 21:00 11/20/18 10:30 Lopressor 25 Mg Tablet PO 12/19/18 20:59 25 mg DAILY DENZEL Administration Oxycodone/Acetaminophen 2 tab 11/19/18 20:05 11/20/18 12:19 Percocet 5-325 Mg Tablet PO 11/26/18 20:04 2 tab Q4HP PRN Administration FOR PAIN Pantoprazole Sodium 40 mg 11/19/18 22:00 11/20/18 10:[address] Tablet PO 12/19/18 21:59 40 mg DAILY DENZEL Administration Patient Own Medication 0.8 mg 11/19/18 21:00 Liraglutide [Victoza 2-Dane] SQ 12/19/18 20:59 DAILY DENZEL Promethazine HCl 25 mg 11/19/18 20:09 11/20/18 12:22 Phenergan 25 Mg Tablet PO 12/19/18 20:08 25 mg Q4HP PRN Administration UNRESOLVED NAUSEA/VOMITING Sodium Chloride 2.5 ml 11/19/18 22:00 11/20/18 14:18 Saline Flush 2.5 Ml Monoject Prefil Syrin IV 12/19/18 21:59 Not Given Q8 DENZEL Discontinued Medications Generic Name Dose Route Start Last Admin Trade Name Ruddy PRN Reason Stop Dose Admin Morphine Sulfate 2 mg 11/19/18 17:16 11/19/18 18:10 Morphine 10 Mg/Ml Inj IV 11/19/18 17:17 2 mg NOW ONE Administration Nitroglycerin 1 tab 11/19/18 17:16 11/19/18 19:56 Nitrostat 0.4 Mg (1/150 Gr) Tabs 25/Bottle SL 1 tab ASDIR PRN Administration FOR PAIN Labs- All tests 24 hr 11/19/18 11/19/18 11/19/18 22:15 22:15 22:15 WBC 10.3 RBC 5.09 Hgb 14.5 Hct 43.4 MCV 85 MCH 28.4 MCHC 33.3 RDW 13.6 Plt Count 217 Lymph % (Auto) 30.5 [place] % (Auto) 6.9 Eos % (Auto) 0.8 Baso % (Auto) 0.7 Absolute Neuts (auto) 6.3 Absolute Lymphs (auto) 3.2 Absolute Monos (auto) 0.7 Absolute Eos (auto) 0.1 Absolute Basos (auto) 0.1 Seg Neutrophils % 61.1 POC Glucose Hemoglobin A1c % 8.2 H Troponin I < 0.012 11/20/18 11/20/18 11/20/18 04:11 08:32 10:22 WBC RBC Hgb Hct MCV MCH MCHC RDW Plt Count Lymph % (Auto) [place] % (Auto) Eos % (Auto) Baso % (Auto) Absolute Neuts (auto) Absolute Lymphs (auto) Absolute Monos (auto) Absolute Eos (auto) Absolute Basos (auto) Seg Neutrophils % POC Glucose 199 H Hemoglobin A1c % Troponin I < 0.012 < 0.012 11/20/18 11/20/18 11:07 16:41 WBC RBC Hgb Hct MCV MCH MCHC RDW Plt Count Lymph % (Auto) [place] % (Auto) Eos % (Auto) Baso % (Auto) Absolute Neuts (auto) Absolute Lymphs (auto) Absolute Monos (auto) Absolute Eos (auto) Absolute Basos (auto) Seg Neutrophils % POC Glucose 197 H 183 H Hemoglobin A1c % Troponin I Chest X-Ray 11/19/18 14:17 IMPRESSION: Unchanged mild diffuse bilateral interstitial pulmonary opacity, likely edema in the setting of cardiomegaly. No focal airspace opacity. Chest/Abdomen CTA 11/20/18 00:00 IMPRESSION: No PE. Chronic interstitial lung disease. The patient's successive EKGs shows sinus rhythm. Left ventricular hypertrophy. PVCs. No acute ischemia or infarction seen. IMPRESSION/RECOMMENDATION: 1. Chest pain clearly chest wall pain no evidence of angina. Note that the patient 2 years ago had a nuclear stress test which was negative for ischemia or MT. Patient reassured that this is not cardiac. Recommend analgesics including a trial of colchicine for possible costochondritis. 2. Diabetes mellitus type 2: Continue antidiabetic medication and Accu-Cheks. 3. Hypertension: Blood pressure seems to be fairly well controlled continue current medication. 4. History of obstructive sleep apnea not on CPAP. Patient encouraged to wear CPAP, and the importance of CPAP explained to the patient. 5. Morbid obesity. 6. History of gastroparesis. 7. Clinically no evidence of heart failure. Indications reviewed management plan discussed with attending physician Dr. Clark. Medical decision making is of moderate complexity. 60 minutes spent on this patient more than 50% of time spent in direct patient care. From my viewpoint cardiac status is stable. Hence will sign off. The patient does have risk factors for coronary artery disease, hence would recommend outpatient IV Lexiscan Cardiolite stress test.
[2018-11-20] MEDS: ATORVASTATIN CALCIUM 80 MG TABLET PO SCH (21:44)
[2018-11-21] MEDS: GABAPENTIN 100 MG CAPSULE PO SCH (06:19)
[2018-11-21] MEDS: INSULIN LISPRO 100 UNIT/ML 3 ML VIAL SUBCUT SCH (08:01)
[2018-11-21] MEDS: FUROSEMIDE 20 MG TABLET PO SCH (08:01)
[2018-11-21] MEDS: GLIPIZIDE XL 5 MG TAB.ER.24 PO SCH (09:41)
[2018-11-21] MEDS: ENOXAPARIN SODIUM INJ 60 MG/0.6 ML DISP.SYRIN SUBCUT SCH (09:42)
[2018-11-21] MEDS: METOPROLOL TARTRATE 25 MG TABLET PO SCH (09:42)
[2018-11-21] MEDS: PANTOPRAZOLE SODIUM 40 MG TABLET.DR PO SCH (09:42)
[2018-11-21] MEDS: CLOPIDOGREL BISULFATE 75 MG TABLET PO SCH (09:42)
--- NOTE | 2018-11-21 11:27 | PDOC DISCHARGE SUMMARY ---
General - Admit/Disc Date/PCP Admission Date/Primary Care Provider: 11/19/18 19:49 JULIA THOMAS MD Discharge Date: 11/21/18 - Discharge Diagnosis (1) Chest pain Is this a current diagnosis for this admission?: Yes (2) T2DM (type 2 diabetes mellitus) Is this a current diagnosis for this admission?: Yes (3) Interstitial lung disease Is this a current diagnosis for this admission?: Yes - Additional Information Resuscitation Status: Full Code Home Medications: Atorvastatin Calcium [Lipitor 20 mg Tablet] 20 mg PO QHS 11/19/18 Dexlansoprazole [Dexilant 60 mg Capsule] 60 mg PO DAILY 11/19/18 Furosemide [Lasix 20 mg Tablet] 20 mg PO QAM 11/19/18 Gabapentin [Neurontin 100 mg Capsule] 200 mg PO Q8 11/19/18 Glipizide [Glipizide Xl] 5 mg PO DAILY 11/19/18 Levocetirizine Dihydrochloride [24Hr Allergy Relief] 5 mg PO QPM 11/19/18 Liraglutide [Victoza 2-Dane] 0.8 mg SQ DAILY 11/19/18 Metoprolol Tartrate [Lopressor 25 mg Tablet] 25 mg PO DAILY 11/19/18 History of Present Illness History of Present Illness: KALI NYE is a 48 year old female, she came to the emergency room for evaluation of chest pain, she stated that the chest pain started yesterday after she took gabapentin for neuropathy symptoms,. The chest pain is left-sided she said the pain radiates to the shoulder it feels tight. In the emergency room she was evaluated, twelve-lead EKG was done, it was sinus rhythm there is no acute ST-T wave changes, there is a Q wave in V1 V2 lead. She has multiple risk factors for ischemic heart disease including diabetes mellitus, tobacco abuse. When I saw her on the floor, the chest pain is reproducible on palpation of the chest wall suggesting that this is probably noncardiac chest pain. She also had a Lexiscan Cardiolite stress test on December 16, 2016 about 2 years ago the test did not show any definitive scintigraphic evidence of Lexiscan induced ischemia there was no scintigraphic evidence of myocardial infarction the estimated ejection fraction was 54%. 3 sets of cardiac enzymes were negative for acute NC. She was admitted for observation and evaluation of her symptoms Hospital Course Hospital Course: Patient was admitted for the management of chest pain, 3 sets of cardiac enzymes negative for acute NC. CAT scan angiography of the chest was done, there was no pulmonary embolus visualized but she was found to have interstitial lung disease. The findings of the CAT scan was discussed with the patient she will need to follow outpatient with pulmonary. She also was seen by Dr. Esparza cardiology, for evaluation of the chest pain Physical Exam Vital Signs: Temp Pulse Resp BP Pulse Ox 98.4 F 72 16 138/89 H 98 11/21/18 07:53 11/21/18 07:53 11/21/18 07:53 11/21/18 07:53 11/21/18 07:53 Intake & Output 11/20/18 11/21/18 11/22/18 06:59 06:59 06:59 Intake Total 832 Balance 832 Weight 142.8 kg 141.8 kg General appearance: PRESENT: no acute distress Head exam: PRESENT: atraumatic, normocephalic Eye exam: PRESENT: PERRLA Ear exam: PRESENT: normal external ear exam Mouth exam: PRESENT: moist, tongue midline Neck exam: PRESENT: full ROM Respiratory exam: PRESENT: rales Cardiovascular exam: PRESENT: RRR, +S1, +S2 Vascular exam: PRESENT: normal capillary refill GI/Abdominal exam: PRESENT: normal bowel sounds, soft Rectal exam: PRESENT: deferred Neurological exam: PRESENT: alert, CN II-XII grossly intact Psychiatric exam: PRESENT: appropriate affect, normal mood Skin exam: PRESENT: dry, intact, warm Results Laboratory Results: 11/19/18 22:15 11/19/18 12:54 11/19/18 11/19/18 11/19/18 12:54 12:54 22:15 CK-MB (CK-2) 0.56 Troponin I < 0.012 < 0.012 NT-Pro-B Natriuret Pep 72 11/20/18 11/20/18 04:11 10:22 CK-MB (CK-2) Troponin I < 0.012 < 0.012 NT-Pro-B Natriuret Pep Impressions: Chest X-Ray 11/19/18 14:17 IMPRESSION: Unchanged mild diffuse bilateral interstitial pulmonary opacity, likely edema in the setting of cardiomegaly. No focal airspace opacity. Chest/Abdomen CTA 11/20/18 00:00 IMPRESSION: No PE. Chronic interstitial lung disease. Qualifiers - * PATIENT BEING DISCHARGED WITH ANY OF THE FOLLOWING DIAGNOSIS: No VTE patient discharged on overlapping Therapy?: No Reason(s) for not prescribing Overlap Therapy:: Not indicated Stroke Pt being discharged on Anti-thrombolytic therapy?: No Reason(s) for not prescribing Anti-thrombolytic therapy:: Not indicated Stroke Pt being discharged on Anti-coagulation therapy?: No Reason(s) for not prescribing Anti-coagulation therapy:: Not indicated Stroke Pt being discharged on Statins?: No Reason(s) for not prescribing Statins therapy:: Not indicated NC Pt being discharged on Aspirin therapy?: No Reason(s) for not prescribing Aspirin therapy:: Not indicated NC Pt being discharged on Statins?: No Reason(s) for not prescribing Statin therapy:: Not indicated NC Pt discharged ACEI/ARBS?: No Reason(s) for not prescribing ACEI/ARBS:: Not indicated Acute Heart Failure - Is this a Heart Failure Patient?: No 3. Anticoagulant therapy for permanect/persistent/paraoxysmal Afib or Aflutter: Yes
[2018-11-21 12:16] VITALS: BP 176/82
== END 2018-11-21 12:25 | disposition home or self-care (01) ==
LOC: ER 13:25 → EH 19:49 → INTOOBSV 19:49 → 3N 22:48
PROVIDERS: ADMIT Internal Medicine; ATTEND Family Medicine
DX: R07.89 Other chest pain (principal); E11.43 Type 2 diabetes mellitus with diabetic autonomic (poly)neuropathy; K31.84 Gastroparesis; J84.9 Interstitial pulmonary disease, unspecified; E66.01 Morbid (severe) obesity due to excess calories; G47.33 Obstructive sleep apnea (adult) (pediatric); R06.01 Orthopnea; F17.210 Nicotine dependence, cigarettes, uncomplicated; I10 Essential (primary) hypertension; K21.9 Gastro-esophageal reflux disease without esophagitis; F19.10 Other psychoactive substance abuse, uncomplicated; Z88.6 Allergy status to analgesic agent; Z79.899 Other long term (current) drug therapy; Z90.10 Acquired absence of unspecified breast and nipple; Z82.49 Family history of ischemic heart disease and other diseases of the circulatory system; Z79.84 Long term (current) use of oral hypoglycemic drugs; Z98.51 Tubal ligation status
CPT/HCPCS: 93005 ×2; 99285; 96374; 36415 ×2; 82553; 82962 ×2; 83690; 84703; 85025; 80053; 81001; 84484 ×2; 83036; 83880; 71046; 71275; 93010 ×2; G0378 ×4; J3490 ×25; J1815; J2270; J1650 ×3

== ENCOUNTER 2019-05-02 08:51 | Emergency (ER) | payer MEDICAID ==
--- NOTE | 2019-05-02 09:23 | ER Document Report ---
ED Medical Screen (RME) - General Chief Complaint: Chest Pain Stated Complaint: COLD SYMPTOMS Time Seen by Provider: 05/02/19 09:16 Primary Care Provider: JULIA THOMAS MD [Primary Care Provider] - Follow up as needed Mode of Arrival: Wheelchair Information source: Patient Notes: 49-year-old female presented to ED for complaint of cough cold congestion symptoms yesterday. She states overnight she started having pain in her right great toe and third toe and then this morning she started having pain from her left hand all the way up to her shoulder and across to her left chest. She states she did not get out of bed so she has not bumped any of these areas has not injured any of these areas. She does have some minimal swelling and redness to the right great toe. She denies any history of gout. She states she has difficulty breathing if she lays flat but if she sits forward she does not have difficult breathing. Patient is alert oriented respirations regular and unlabored as long as he sitting upright. I have greeted and performed a rapid initial assessment of this patient. A comprehensive ED assessment and evaluation of the patient, analysis of test results and completion of medical decision making process will be conducted by an additional ED providers. TRAVEL OUTSIDE OF THE [place] IN LAST 30 DAYS: No - Related Data Allergies/Adverse Reactions: aspirin Allergy (Severe, Verified 11/19/18 13:41) Anaphylaxis ibuprofen [Ibuprofen] Allergy (Severe, Verified 11/19/18 13:41) Anaphylaxis ciprofloxacin [From Cipro] Allergy (Intermediate, Verified 11/19/18 13:41) itching codeine Allergy (Verified 11/19/18 13:41) egg [Egg] Allergy (Verified 11/19/18 13:41) Anaphylaxis Penicillins Allergy (Verified 11/19/18 13:41) Anaphylaxis metoclopramide [From Reglan] Adverse Reaction (Severe, Verified 11/19/18 13:41) acetaminophen [From [place]] Adverse Reaction (Verified 11/19/18 22:55) VOMITING hydrocodone [From [place]] Adverse Reaction (Verified 11/19/18 22:55) VOMITING Past Medical History - Social History Cigarette use (# per day): Yes - Pack a day Chew tobacco use (# tins/day): No Frequency of alcohol use: Rare Drug Abuse: None Lives with: Family Family history: Reviewed & Not Pertinent - Past Medical History Cardiac Medical History: Reports: Hx Atrial Fibrillation - not on medication, Hx Congestive Heart Failure, Hx Hypertension Pulmonary Medical History: Reports: Hx Sleep Apnea Endocrine Medical History: Reports: Hx Diabetes Mellitus Type 2 Renal/ Medical History: Denies: Hx Peritoneal Dialysis Malignancy Medical History: GI Medical History: Reports: Hx Gastroesophageal Reflux Disease, Hx Irritable Bowel Musculoskeltal Medical History: Reports Hx Musculoskeletal Deformity, Reports Hx Musculoskeletal Trauma Psychiatric Medical History: Reports: Hx Anxiety, Hx Depression Infectious Medical History: Past Surgical History: Reports: Hx Breast Surgery - breast reduction, biopsy, Hx Mastectomy, Hx Rectal Surgery - Fistula, hemorrhoids, Hx Tubal Ligation - Immunizations Immunizations up to date: Yes Hx Diphtheria, Pertussis, Tetanus Vaccination: Yes History of Pneumococcal Vaccine: No History of Influenza Vaccine for 12/2018 - 05/2019 Season: No Physical Exam - Vital signs Vitals: Temp Pulse Resp BP Pulse Ox 98.2 F 89 16 154/65 H 94 05/02/19 09:05 05/02/19 09:05 05/02/19 09:05 05/02/19 09:05 05/02/19 09:05 Course - Vital Signs Vital signs: Temp Pulse Resp BP Pulse Ox 98.2 F 89 16 154/65 H 94 05/02/19 09:05 05/02/19 09:05 05/02/19 09:05 05/02/19 09:05 05/02/19 09:05 Doctor's Discharge - Discharge Referrals: JULIA THOMAS MD [Primary Care Provider] - Follow up as needed
[2019-05-02 10:20] LABS: ABSOLUTE BASOPHILS # (AUTO) 0.1 10^3/uL (0.0-0.2); ABSOLUTE EOSINOPHILS # (AUTO) 0.2 10^3/uL (0.0-0.6); ABSOLUTE LYMPHOCYTES (AUTO) 1.9 10^3/uL (0.5-4.7); ABSOLUTE MONOCYTES (AUTO) 0.5 10^3/uL (0.1-1.4); ABSOLUTE NEUT (AUTO) 4.1 10^3/uL (1.7-8.2); BASOPHILS % (AUTO) 0.9 % (0-2); EOSINOPHILS % (AUTO) 2.3 % (0-6); HEMATOCRIT 39.5 % (36.0-47.0); HEMOGLOBIN 13.2 g/dL (12.0-15.5); LYMPHOCYTES % (AUTO) 28.1 % (13-45); MEAN CORPUSCULAR HEMOGLOBIN 28.4 pg (27.0-33.4); MEAN CORPUSCULAR HGB CONC 33.4 g/dL (32.0-36.0); MEAN CORPUSCULAR VOLUME 85 fl (80-97); MONOCYTES % (AUTO) 7.8 % (3-13); PLATELET COUNT 197 10^3/uL (150-450); RED BLOOD COUNT 4.64 10^6/uL (3.72-5.28); RED CELL DISTRIBUTION WIDTH 14.1 % (11.5-14.0); SEGMENTED NEUTROPHILS % (AUTO) 60.9 % (42-78); TOTAL CELLS COUNTED % (AUTO) 100 %; WHITE BLOOD COUNT 6.8 10^3/uL (4.0-10.5)
[2019-05-02] MEDS ORDERED: CLINDAMYCIN HCL 150 MG CAPSULE PO ONE (10:58)
--- NOTE | 2019-05-02 11:03 | ER Document Report ---
ED General - General Chief Complaint: Chest Pain Stated Complaint: COLD SYMPTOMS Time Seen by Provider: 05/02/19 09:16 Primary Care Provider: JULIA THOMAS MD [Primary Care Provider] - Follow up as needed Mode of Arrival: Wheelchair Notes: Patient is a 49-year-old -[place] female with a past medical history of morbid obesity, hypertension, hyperlipidemia and diabetes who presents to the emergency department with a chief complaint of right great toe and right third toe pain that began last night. She states she has been laying on the couch for a few days due to a recently contracted "cold". She states she is not here regarding the cold today but is concern for toes given that she is diabetic. She denies any history of gout. States that her toes are red, swollen and painf ul. She denies any injury to the toes. She also adds that she has some intermittent occasional sharp shooting pains from the left proximal thumb that radiates up to the shoulder. She denies any recent change in activity. 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 She denies any chest pain or shortness of breath. Denies any fever, nausea, vomiting, diarrhea, chills, night sweats. TRAVEL OUTSIDE OF THE [place] IN LAST 30 DAYS: No - Related Data Allergies/Adverse Reactions: aspirin Allergy (Severe, Verified 05/02/19 09:23) Anaphylaxis ibuprofen [Ibuprofen] Allergy (Severe, Verified 05/02/19 09:23) Anaphylaxis ciprofloxacin [From Cipro] Allergy (Intermediate, Verified 05/02/19 09:23) itching codeine Allergy (Verified 05/02/19 09:23) egg [Egg] Allergy (Verified 05/02/19 09:23) Anaphylaxis Penicillins Allergy (Verified 05/02/19 09:23) Anaphylaxis metoclopramide [From Reglan] Adverse Reaction (Severe, Verified 05/02/19 09:23) acetaminophen [From [place]] Adverse Reaction (Verified 05/02/19 09:23) VOMITING hydrocodone [From [place]] Adverse Reaction (Verified 05/02/19 09:23) VOMITING Past Medical History - General Information source: Patient - Social History Smoking Status: Current Every Day Smoker Cigarette use (# per day): Yes - Pack a day Chew tobacco use (# tins/day): No Frequency of alcohol use: Rare Drug Abuse: None Lives with: Family Family History: Reviewed & Not Pertinent, CAD, Hypertension Patient has suicidal ideation: No Patient has homicidal ideation: No - Past Medical History Cardiac Medical History: Reports: Hx Atrial Fibrillation - not on medication, Hx Congestive Heart Failure, Hx Hypertension Pulmonary Medical History: Reports: Hx Sleep Apnea Endocrine Medical History: Reports: Hx Diabetes Mellitus Type 2 Renal/ Medical History: Denies: Hx Peritoneal Dialysis Malignancy Medical History: GI Medical History: Reports: Hx Gastroesophageal Reflux Disease, Hx Irritable Bowel Musculoskeletal Medical History: Reports Hx Musculoskeletal Deformity, Reports Hx Musculoskeletal Trauma Psychiatric Medical History: Reports: Hx Anxiety, Hx Depression Infectious Medical History: Past Surgical History: Reports: Hx Breast Surgery - breast reduction, biopsy, Hx Mastectomy, Hx Rectal Surgery - Fistula, hemorrhoids, Hx Tubal Ligation - Immunizations Immunizations up to date: Yes Hx Diphtheria, Pertussis, Tetanus Vaccination: Yes History of Pneumococcal Vaccine: No Review of Systems - Review of Systems Constitutional: denies: Fever EENT: No symptoms reported Cardiovascular: denies: Chest pain Respiratory: Cough. denies: Short of breath Gastrointestinal: No symptoms reported Genitourinary: No symptoms reported Female Genitourinary: No symptoms reported Musculoskeletal: Joint pain, Joint swelling Skin: Other - Redness Neurological/Psychological: No symptoms reported Physical Exam - Vital signs Vitals: Temp Pulse Resp BP Pulse Ox 98.2 F 89 16 154/65 H 94 05/02/19 09:05 05/02/19 09:05 05/02/19 09:05 05/02/19 09:05 05/02/19 09:05 - General General appearance: Appears well In distress: None - Respiratory Respiratory status: No respiratory distress Chest status: Nontender Breath sounds: Normal Chest palpation: Normal - Cardiovascular Rhythm: Regular Heart sounds: Normal auscultation - Extremities Foot: Other - Tenderness, swelling and erythema to the first and third digits of the right foot. There is some erythema noted in the webspaces of the same digits with some faint erythema noted just proximally of the dorsum. No open skin or wounds however there foot and toes are grossly dry and cracked. - Neurological Neuro grossly intact: Yes Cognition: Normal Orientation: AAOx4 - Skin Skin Temperature: Hot Skin Moisture: Dry Skin Color: Other - Erythematous and the areas described above Course - Re-evaluation Re-evalutation: 05/02/19 12:32 Patient's x-ray showing bibasilar infiltrates versus atelectasis per radiolo gist. Patient does have an ongoing cough with her "cold" symptoms. Suspect an early cellulitis of the right foot. Due to multiple medication allergies we will use clindamycin with caution. She has an appointment with her doctor in 3 days and will follow-up as scheduled and discussed for reevaluation. Discussed with her the importance of outpatient follow-up and advised that she return here any ER immediately with any new, persistent or worsening symptoms. She verbalized understood and agreed. 05/02/19 12:40 pending patient's imaging studies at this time, I was alerted by nursing staff that the patient woke up and is now complaining of center chest pain. The patient was reevaluated, she is nondiaphoretic and in no obvious distress but is complaining of some left-sided anterior chest pain. States it feels like a throbbing heartbeat. 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 Has never had to undergo cardiac catheterization. We will obtain repeat troponin and EKG at this time, patient is allergic to aspirin so she will be given Plavix. 05/02/19 12:41 05/02/19 13:39 Repeat EKG showing no STEMI at this time. Pending repeat troponin 05/02/19 14:53 Reevaluation at this time, patient is resting comfortably in her room, smiling and cheerful. She is eager for discharge. Her repeat troponin was normal. Should be placed on clindamycin, follow-up with her flipping machine operator and her primary care doctor. She has an appoint with her primary in 3 days. We discussed the importance of outpatient follow-up and advised that she return here or any ER immediately with any new, persistent or worsening symptoms. She verbalized understood and agreed. - Vital Signs Vital signs: Temp Pulse Resp BP Pulse Ox 98.2 F 89 24 H 140/60 H 96 05/02/19 09:05 05/02/19 09:05 05/02/19 10:11 05/02/19 10:11 05/02/19 10:11 - Laboratory Result Diagrams: 05/02/19 10:00 Laboratory results interpreted by me: 05/02/19 10:00 RDW 14.1 H - EKG Interpretation by Me EKG shows normal: Sinus rhythm Rate: Normal Rhythm: Other - Sinus When compared to previous EKG there are: Other - Nonspecific ST-T wave changes Discharge - Discharge Clinical Impression: Lung infiltrate Cellulitis Qualifiers: Site of cellulitis: other site Qualified Code(s): L03.818 - Cellulitis of other sites Condition: Stable Disposition: HOME, SELF-CARE Instructions: Cellulitis ([facility]) Additional Instructions: Follow-up with your regular doctor in 2 to 3 days for reevaluation. Return here or any ER immediately with any new, persistent or worsening symptoms. Prescriptions: Clindamycin HCl 300 mg PO Q6 #39 capsule Referrals: JULIA THOMAS MD [Primary Care Provider] - Follow up as needed
--- NOTE | 2019-05-02 12:08 | RADIOLOGY REPORT (SQ) ---
EXAM DESCRIPTION: CHEST 2 VIEWS COMPLETED DATE/TIME: 05/02/2019 11:54 am REASON FOR STUDY: chest pain COMPARISON: 11/19/2018 EXAM PARAMETERS: NUMBER OF VIEWS: two views TECHNIQUE: Digital Frontal and Lateral radiographic views of the chest acquired. RADIATION DOSE: NA LIMITATIONS: none FINDINGS: LUNGS AND PLEURA: Minimal nonspecific opacity within the left lung base. No dense consoli dation, pleural effusion or pneumothorax. MEDIASTINUM AND HILAR STRUCTURES: No masses or contour abnormalities. HEART AND VASCULAR STRUCTURES: Enlarged, stable. Aortic atherosclerosis. BONES: No acute findings. HARDWARE: None in the chest. OTHER: No other significant finding. IMPRESSION: Mild left basilar opacities possibly atelectasis or infection. TECHNICAL DOCUMENTATION: JOB ID: [id number] [employer]- All Rights Reserved Reading location - IP/workstation name: [email or web address]
--- NOTE | 2019-05-02 12:12 | RADIOLOGY REPORT (SQ) ---
EXAM DESCRIPTION: FOOT RIGHT COMPLETE COMPLETED DATE/TIME: 05/02/2019 11:54 am REASON FOR STUDY: right great toe and 3rd toe COMPARISON: 09/30/2014 NUMBER OF VIEWS: Three views. TECHNIQUE: AP, lateral and oblique radiographic images acquired of the right foot. LIMITATIONS: None. FINDINGS: MINERALIZATION: Normal. BONES: No acute fracture or dislocation. No worrisome bone lesions. Small plantar calcaneal entheso phyte. JOINTS: No effusions. SOFT TISSUES: Forefoot soft tissue swelling. No radiopaque foreign body. OTHER: No other significant finding. IMPRESSION: Forefoot soft tissue swelling without evidence of acute bony abnormality. TECHNICAL DOCUMENTATION: JOB ID: [id number] [employer]- All Rights Reserved Reading location - IP/workstation name: [email or web address]
[2019-05-02] MEDS ORDERED: CLOPIDOGREL BISULFATE 75 MG TABLET PO ONE (12:40)
--- NOTE | 2019-05-02 15:16 | EKG REPORT ---
SEVERITY:- ABNORMAL ECG - SINUS RHYTHM PAIRED VENTRICULAR PREMATURE COMPLEXES NONSPECIFIC T ABNORMALITIES, LATERAL LEADS : Confirmed by: Brandie Espazra MD 02-May-2019 15:15:45
[2019-05-02 15:23] VITALS: BP 170/64
== END 2019-05-02 15:22 | disposition home or self-care (01) ==
LOC: ER 08:51
DX: L03.90 Cellulitis, unspecified (principal); R91.8 Other nonspecific abnormal finding of lung field; E11.9 Type 2 diabetes mellitus without complications; M79.674 Pain in right toe(s); M79.645 Pain in left finger(s); R05 Cough; R07.9 Chest pain, unspecified; M25.50 Pain in unspecified joint; M25.40 Effusion, unspecified joint; I10 Essential (primary) hypertension; F17.210 Nicotine dependence, cigarettes, uncomplicated; Z87.892 Personal history of anaphylaxis; Z88.8 Allergy status to other drugs, medicaments and biological substances; Z88.0 Allergy status to penicillin; Z88.1 Allergy status to other antibiotic agents; Z88.6 Allergy status to analgesic agent; Z88.5 Allergy status to narcotic agent; Z91.012 Allergy to eggs
CPT/HCPCS: 93005; 99284; 36415; 84550; 85025; 84484; 71046; 73630; 93010; J3490 ×2

== ENCOUNTER 2019-07-20 20:48 | Emergency (ER) | payer MEDICAID ==
--- NOTE | 2019-07-20 21:05 | ER Document Report ---
ED Medical Screen (RME) - General Chief Complaint: Syncope Stated Complaint: SYNCOPE,CHEST PAIN,HEADACHE Time Seen by Provider: 07/20/19 20:56 Primary Care Provider: JULIA THOMAS MD [Primary Care Provider] - Follow up as needed Mode of Arrival: Medic Information source: Patient Notes: 49-year-old female presents to ED for complaint of chest pain going through the left shoulder down the left arm for about a week and a half. She states tonight she was sitting on the couch talking with her when all of a sudden she got very lightheaded had some severe chest pain and the next thing she knows the EMS is there getting ready to bring her to the hospital. She states she wanted just take some Tylenol but her insisted she come to the hospital so she came to the hospital. Patient is alert oriented respirations regular nonlabored at this time. She states she does have a history of high blood pressure cholesterol gastroparesis congestive heart failure IBS diverticulosis diabetes type 2 and seizures. States she has not had a seizure in over a year. She states she smokes a pack a day but very rarely drinks and does not use any illicit drugs. I have greeted and performed a rapid initial assessment of this patient. A comprehensive ED assessment and evaluation of the patient, analysis of test results and completion of medical decision making process will be conducted by an additional ED providers. TRAVEL OUTSIDE OF THE [place] IN LAST 30 DAYS: No - Related Data Allergies/Adverse Reactions: aspirin Allergy (Severe, Verified 07/20/19 20:57) Anaphylaxis ibuprofen [Ibuprofen] Allergy (Severe, Verified 07/20/19 20:57) Anaphylaxis ciprofloxacin [From Cipro] Allergy (Intermediate, Verified 07/20/19 20:57) itching codeine Allergy (Verified 07/20/19 20:57) egg [Egg] Allergy (Verified 07/20/19 20:57) Anaphylaxis Penicillins Allergy (Verified 07/20/19 20:57) Anaphylaxis metoclopramide [From Reglan] Adverse Reaction (Severe, Verified 07/20/19 20:57) acetaminophen [From [place]] Adverse Reaction (Verified 07/20/19 20:57) VOMITING hydrocodone [From [place]] Adverse Reaction (Verified 07/20/19 20:57) VOMITING Past Medical History - Social History Family history: Reviewed & Not Pertinent - Past Medical History Cardiac Medical History: Reports: Hx Atrial Fibrillation - not on medication, Hx Congestive Heart Failure, Hx Hypertension Pulmonary Medical History: Reports: Hx Sleep Apnea Endocrine Medical History: Reports: Hx Diabetes Mellitus Type 2 Renal/ Medical History: Denies: Hx Peritoneal Dialysis Malignancy Medical History: GI Medical History: Reports: Hx Gastroesophageal Reflux Disease, Hx Irritable Bowel Musculoskeltal Medical History: Reports Hx Musculoskeletal Deformity, Reports Hx Musculoskeletal Trauma Psychiatric Medical History: Reports: Hx Anxiety, Hx Depression Infectious Medical History: Past Surgical History: Reports: Hx Breast Surgery - breast reduction, biopsy, Hx Mastectomy, Hx Rectal Surgery - Fistula, hemorrhoids, Hx Tubal Ligation - Immunizations Immunizations up to date: Yes Hx Diphtheria, Pertussis, Tetanus Vaccination: Yes Physical Exam - Vital signs Vitals: Temp Pulse Resp BP Pulse Ox 98.8 F 78 22 H 144/87 H 95 07/20/19 20:53 07/20/19 20:53 07/20/19 20:53 07/20/19 20:53 07/20/19 20:53 Course - Vital Signs Vital signs: Temp Pulse Resp BP Pulse Ox 98.8 F 78 22 H 153/87 H 95 07/20/19 20:53 07/20/19 20:53 07/20/19 20:53 07/20/19 20:58 07/20/19 20:53 Doctor's Discharge - Discharge Referrals: JULIA THOMAS MD [Primary Care Provider] - Follow up as needed
--- NOTE | 2019-07-20 21:32 | RADIOLOGY REPORT (SQ) ---
CLINICAL INDICATION: syncope. TECHNIQUE: PA and lateral views were obtained of the chest COMPARISON: None available. FINDINGS: The cardiomediastinal silhouette is top normal. The lungs demonstrate diffuse interstitial prominence of unknown chronicity. No consolidation or effusion or pneumothorax. Visualized bones are unremarkable. . IMPRESSION: Diffuse interstitial prominence, unknown chronicity .
[2019-07-20 22:40] LABS: APPEARANCE,URINE SLIGHTLY-CLOUDY; BILIRUBIN,URINE NEGATIVE (NEGATIVE); COLOR,URINE YELLOW; GLUCOSE, URINE >=500 mg/dL (NEGATIVE); KETONES,URINE TRACE mg/dL (NEGATIVE); LEUKOCYTE ESTERASE,URINE NEGATIVE (NEGATIVE); NITRITE,URINE NEGATIVE (NEGATIVE); PROTEIN,URINE 30 mg/dL (NEGATIVE)
[2019-07-20 23:21] LABS: ABSOLUTE BASOPHILS # (AUTO) 0.1 10^3/uL (0.0-0.2); ABSOLUTE EOSINOPHILS # (AUTO) 0.1 10^3/uL (0.0-0.6); ABSOLUTE LYMPHOCYTES (AUTO) 2.9 10^3/uL (0.5-4.7); ABSOLUTE MONOCYTES (AUTO) 0.7 10^3/uL (0.1-1.4); ABSOLUTE NEUT (AUTO) 4.4 10^3/uL (1.7-8.2); BASOPHILS % (AUTO) 0.8 % (0-2); EOSINOPHILS % (AUTO) 1.5 % (0-6); HEMATOCRIT 42.7 % (36.0-47.0); HEMOGLOBIN 14.4 g/dL (12.0-15.5); LYMPHOCYTES % (AUTO) 35.2 % (13-45); MEAN CORPUSCULAR HEMOGLOBIN 29.2 pg (27.0-33.4); MEAN CORPUSCULAR HGB CONC 33.8 g/dL (32.0-36.0); MEAN CORPUSCULAR VOLUME 86 fl (80-97); MONOCYTES % (AUTO) 8.4 % (3-13); PLATELET COUNT 202 10^3/uL (150-450); RED BLOOD COUNT 4.94 10^6/uL (3.72-5.28); RED CELL DISTRIBUTION WIDTH 13.5 % (11.5-14.0); SEGMENTED NEUTROPHILS % (AUTO) 54.1 % (42-78); TOTAL CELLS COUNTED % (AUTO) 100 %; WHITE BLOOD COUNT 8.2 10^3/uL (4.0-10.5)
--- NOTE | 2019-07-20 23:31 | ER Document Report ---
ED General - General Chief Complaint: Syncope Stated Complaint: SYNCOPE,CHEST PAIN,HEADACHE Time Seen by Provider: 07/20/19 20:56 Primary Care Provider: JULIA THOMAS MD [Primary Care Provider] - Follow up as needed Mode of Arrival: Medic Notes: 49-year-old female with [id number] diabetes mellitus, hypertension, hyperlipidemia, CHF unknown EF, gastroparesis, IBS, diverticulosis, and suspected epilepsy presents to the emergency department with chief complaint of sternal chest pain that radiates through her left shoulder for the past 2 weeks. Patient states she was sitting on the couch talking to her and she became suddenly lightheaded with chest pain. The next thing she knew EMS was at her house loading her to go to the hospital. Patient states that she is no lo nger feeling lightheaded but has a headache consistent with her previous history of headaches. No neck stiffness. No diaphoresis or dyspnea on exertion. No nausea or vomiting. Patient states that chest pain is much worse when palpating the chest. Patient states that this is been happening to her for at least the past several months. No vision changes. Patient smokes 1 pack of cigarettes per day. TRAVEL OUTSIDE OF THE [place] IN LAST 30 DAYS: No - Related Data Allergies/Adverse Reactions: aspirin Allergy (Severe, Verified 07/20/19 20:57) Anaphylaxis ibuprofen [Ibuprofen] Allergy (Severe, Verified 07/20/19 20:57) Anaphylaxis ciprofloxacin [From Cipro] Allergy (Intermediate, Verified 07/20/19 20:57) itching codeine Allergy (Verified 07/20/19 20:57) egg [Egg] Allergy (Verified 07/20/19 20:57) Anaphylaxis Penicillins Allergy (Verified 07/20/19 20:57) Anaphylaxis metoclopramide [From Reglan] Adverse Reaction (Severe, Verified 07/20/19 20:57) acetaminophen [From [place]] Adverse Reaction (Verified 07/20/19 20:57) VOMITING hydrocodone [From [place]] Adverse Reaction (Verified 07/20/19 20:57) VOMITING Home Medications: dexilant, levocetirizine, januvia, metoprolol, glipizide, atorvastatin Past Medical History - General Information source: Patient - Social History Smoking Status: Current Every Day Smoker Chew tobacco use (# tins/day): No Frequency of alcohol use: Rare Drug Abuse: None Family History: Reviewed & Not Pertinent, CAD, Hypertension Patient has suicidal ideation: No Patient has homicidal ideation: No - Past Medical History Cardiac Medical History: Reports: Hx Atrial Fibrillation - not on medication, Hx Congestive Heart Failure, Hx Hypertension Pulmonary Medical History: Reports: Hx Sleep Apnea Endocrine Medical History: Reports: Hx Diabetes Mellitus Type 2 Renal/ Medical History: Denies: Hx Peritoneal Dialysis Malignancy Medical History: GI Medical History: Reports: Hx Gastroesophageal Reflux Disease, Hx Irritable Bowel Musculoskeletal Medical History: Reports Hx Musculoskeletal Deformity, Reports Hx Musculoskeletal Trauma Psychiatric Medical History: Reports: Hx Anxiety, Hx Depression Infectious Medical History: Past Surgical History: Reports: Hx Breast Surgery - breast reduction, biopsy, Hx Mastectomy, Hx Rectal Surgery - Fistula, hemorrhoids, Hx Tubal Ligation - Immunizations Immunizations up to date: Yes Hx Diphtheria, Pertussis, Tetanus Vaccination: Yes Review of Systems - Review of Systems Constitutional: See HPI EENT: No symptoms reported Cardiovascular: See HPI Respiratory: See HPI Gastrointestinal: See HPI Genitourinary: No symptoms reported Female Genitourinary: No symptoms reported Musculoskeletal: See HPI Skin: No symptoms reported Hematologic/Lymphatic: No symptoms reported Neurological/Psychological: See HPI Physical Exam - Vital signs Vitals: Temp Pulse Resp BP Pulse Ox 98.8 F 78 22 H 144/87 H 95 07/20/19 20:53 07/20/19 20:53 07/20/19 20:53 07/20/19 20:53 07/20/19 20:53 - Notes Notes: PHYSICAL EXAMINATION: Reviewed vital signs and charting by RN GENERAL: Alert, interacts well. No acute distress. HEAD: Normocephalic, atraumatic. EYES: Pupils equal and round. Extraocular movements intact. ENT: Oral mucosa moist, tongue midline. NECK: Full range of motion. Trachea midline. LUNGS: Clear to auscultation bilaterally, no wheezes, rales, or rhonchi. No respiratory distress. HEART: Regular rate and rhythm. No murmur ABDOMEN: soft, non-tender. No distention. Bowel sounds present MSK: TTP anterior chest EXTREMITIES: Moves all 4 extremities spontaneously. No edema, No cyanosis. PSYCH: Normal affect, normal mood. SKIN: Warm, dry, normal turgor. No rashes or lesions noted. Course - Re-evaluation Re-evalutation: 07/20/19 23:28 Patient is well-appearing in no acute distress. Patient states that this is a chronic issue for her and she has passed out before and was told that she has had seizures. She is not on antiepileptics but is being followed by neurology. Chest pain is reproducible and ongoing but plan is to rule out any significant pathology. Chest x-ray did show prominent interstitial infiltrates per radiology read. EKG showed a sinus rhythm with a rate of 69, normal axis, no ST segment elevation or ST segment depressions, no T wave inversions. 07/21/19 00:23 Nurse reported to me that patient had a run of V. tach with a rate of 254 on the monitor. Patient spontaneously reverted to sinus rhythm. A repeat EKG was obtained which was essentially unchanged from the beginning of the visit. No new ST elevations, ST depressions, T wave changes. Discussed with my attending physician Dr. esparza, and a magnesium and BNP was added onto the labs. 07/21/19 00:29 Initial troponin was negative. A delta troponin has been ordered. 07/21/19 03:06 Second troponin is negative. Is unclear what that represented because EKG immediately after was unchanged from when patient arrived. CT head was negative. Patient with a normal neurologic exam. Patient's pain is reproducible and worse with movement of her arm so I suspect this may be musculoskeletal in nature. There is no evidence of cardiac ischemia, CVA, or any life-threatening etiology. 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 I recommended that she follow-up with her inclusion paraeducator this week. Patient is stable for discharge. - Vital Signs Vital signs: Temp Pulse Resp BP Pulse Ox 98.8 F 67 22 H 161/88 H 95 07/20/19 20:57 07/21/19 00:37 07/20/19 20:53 07/21/19 00:37 07/20/19 20:53 - Laboratory Result Diagrams: 07/20/19 23:11 07/20/19 23:11 Laboratory results interpreted by me: 07/20/19 07/20/19 07/20/19 22:23 22:30 23:11 Glucose 188 H POC Glucose 210 H Alkaline Phosphatase 137 H Urine Protein 30 H Urine Glucose (UA) >=500 H Urine Ketones TRACE H Urine Urobilinogen 2.0 H Discharge - Discharge Clinical Impression: Chest pain of unknown etiology Condition: Good Disposition: HOME, SELF-CARE Additional Instructions: You were seen today for chest pain. The exact cause of your pain is unclear. However, based on your cardiac enzyme testing, chest x-ray, and EKG it does not appear that it is from an immediately life-threatening cause at this time. Although your testing here is normal is critical that you follow-up with your [facility] care physician for continued evaluation of this chest pain and possible stress testing. I recommended you see your physician within the next 24-48 hours to be evaluated for consideration of a stress test. Please return to emergency department immediately if you have worsening of your chest pain, shortness of breath, vomiting, become unable to exert yourself due to pain or difficulty breathing, you pass out, or have any pain that radiates into your arms, jaw, or back. Please also return if you have any additional symptoms that are concerning to you. Referrals: JULIA THOMAS MD [Primary Care Provider] - Follow up tomorrow
[2019-07-20 23:49] LABS: CREATINE KINASE MB 0.94 ng/mL (<4.55)
[2019-07-20 23:50] LABS: TROPONIN I < 0.012 ng/mL
[2019-07-21 00:10] LABS: ALBUMIN 4.5 g/dL (3.5-5.0); ALKALINE PHOSPHATASE 137 U/L (38-126); ANION GAP 7 (5-19); ASPARTATE AMINO TRANSFERASE 30 U/L (14-36); BILIRUBIN,TOTAL 0.5 mg/dL (0.2-1.3); BLOOD UREA NITROGEN 14 mg/dL (7-20); CALCIUM 9.1 mg/dL (8.4-10.2); CARBON DIOXIDE 27 mmol/L (22-30); CHLORIDE 104 mmol/L (98-107); CREATINE KINASE 88 U/L (30-135); GLUCOSE 188 mg/dL (75-110); POTASSIUM 4.1 mmol/L (3.6-5.0); TOTAL PROTEIN 8.2 g/dL (6.3-8.2)
--- NOTE | 2019-07-21 01:07 | RADIOLOGY REPORT (SQ) ---
EXAM DESCRIPTION: CT HEAD WITHOUT IV CONTRAST COMPLETED DATE/TME: 07/20/2019 23:32 CLINICAL HISTORY: 49 years Female, syncope COMPARISON: None. TECHNIQUE: No contrast. Coronal and sagittal reformat. This exam was performed according to our departmental dose-optimization program, which includes automated exposure control, adjustment of the mA and/or kV according to patient size and/or use of iterative reconstruction technique. Limitation: Streak artifact. FINDINGS: No hemorrhage or infarct. No mass, mass effect, or midline shift. Brain and extra-axial structures appear intact. IMPRESSION: Normal CT of the head.
[2019-07-21] MEDS ORDERED: ACETAMINOPHEN 325 MG TABLET PO ONE (02:03)
[2019-07-21 03:09] VITALS: BP 136/70
--- NOTE | 2019-07-21 10:03 | EKG REPORT ---
SEVERITY:- ABNORMAL ECG - SINUS RHYTHM PROBABLE ANTEROSEPTAL INFARCT, OLD BORDERLINE T ABNORMALITIES, DIFFUSE LEADS LATERAL LEADS ARE ALSO INVOLVED : Confirmed by: Soheila Thompson 21-Jul-2019 10:03:08
--- NOTE | 2019-07-21 10:04 | EKG REPORT ---
SEVERITY:- ABNORMAL ECG - SINUS RHYTHM LVH WITH SECONDARY REPOLARIZATION ABNORMALITY : Confirmed by: Soheila Thompson 21-Jul-2019 10:03:22
== END 2019-07-21 03:35 | disposition home or self-care (01) ==
LOC: ER 20:48
DX: R55 Syncope and collapse (principal); R07.9 Chest pain, unspecified; R51 Headache; F17.210 Nicotine dependence, cigarettes, uncomplicated; I48.91 Unspecified atrial fibrillation; I50.9 Heart failure, unspecified; I11.0 Hypertensive heart disease with heart failure; E11.9 Type 2 diabetes mellitus without complications; Z98.51 Tubal ligation status; Z88.6 Allergy status to analgesic agent; Z88.3 Allergy status to other anti-infective agents; Z88.0 Allergy status to penicillin
CPT/HCPCS: 93005 ×2; 99285; 36415; 82553; 82962; 82550; 83735; 85025; 80053; 81001; 84484; 83880; 71046; 70450; 93010 ×2; J3490

== ENCOUNTER 2020-04-17 23:08 | Emergency (ER) | payer MEDICAID ==
--- NOTE | 2020-04-18 00:46 | ER Document Report ---
ED Medical Screen (RME) - General Chief Complaint: Fall Stated Complaint: FALL/LEFT SHOULDER AND NECK PAIN Time Seen by Provider: 04/18/20 00:40 Primary Care Provider: JULIA THOMAS MD [Primary Care Provider] - Follow up as needed TRAVEL OUTSIDE OF THE [place] IN LAST 30 DAYS: No - HPI Patient complains to provider of: Fall, left side pain Notes: 04/18/20 00:45 Patient states she has a history of getting dizzy at times and even having syncopal episodes at times. She states that this evening she started to feel dizzy fell onto her left side landing on the floor. She denied striking her head. No blood thinners. She complains of left neck pain, left shoulder pain, left rib pain, left hip pain. Exam: Nontoxic, no distress. Tenderness palpation to the left lateral neck, left shoulder and trapezius, left lateral ribs, left hip. No abdominal tenderness on limited triage abdominal exam. Nonfocal neuro exam. An initial examination was made on the patient as part of the triage process, and it was determined a more comprehensive evaluation was necessary. Initial orders were placed and patient was transferred to another provider in the ED who assumed care and finished evaluation and plan. - Related Data Allergies/Adverse Reactions: aspirin Allergy (Severe, Verified 04/18/20 00:40) Anaphylaxis ibuprofen [Ibuprofen] Allergy (Severe, Verified 04/18/20 00:40) Anaphylaxis ciprofloxacin [From Cipro] Allergy (Intermediate, Verified 04/18/20 00:40) itching codeine Allergy (Verified 04/18/20 00:40) egg [Egg] Allergy (Verified 04/18/20 00:40) Anaphylaxis Penicillins Allergy (Verified 04/18/20 00:40) Anaphylaxis metoclopramide [From Reglan] Adverse Reaction (Severe, Verified 04/18/20 00:40) acetaminophen [From [place]] Adverse Reaction (Verified 04/18/20 00:40) VOMITING hydrocodone [From [place]] Adverse Reaction (Verified 04/18/20 00:40) VOMITING Past Medical History - Social History Family history: Reviewed & Not Pertinent - Past Medical History Cardiac Medical History: Reports: Hx Atrial Fibrillation - not on medication, Hx Congestive Heart Failure, Hx Hypertension Pulmonary Medical History: Reports: Hx Sleep Apnea Endocrine Medical History: Reports: Hx Diabetes Mellitus Type 2 Renal/ Medical History: Denies: Hx Peritoneal Dialysis Malignancy Medical History: GI Medical History: Reports: Hx Gastroesophageal Reflux Disease, Hx Irritable Bowel Musculoskeltal Medical History: Reports Hx Musculoskeletal Deformity, Reports Hx Musculoskeletal Trauma Psychiatric Medical History: Reports: Hx Anxiety, Hx Depression Infectious Medical History: Past Surgical History: Reports: Hx Breast Surgery - breast reduction, biopsy, Hx Mastectomy, Hx Rectal Surgery - Fistula, hemorrhoids, Hx Tubal Ligation - Immunizations Immunizations up to date: Yes Hx Diphtheria, Pertussis, Tetanus Vaccination: Yes Physical Exam - Vital signs Vitals: Temp Pulse Resp BP Pulse Ox 97.7 F 94 19 159/71 H 95 04/17/20 23:14 04/17/20 23:14 04/17/20 23:14 04/17/20 23:14 04/17/20 23:14 Course - Vital Signs Vital signs: Temp Pulse Resp BP Pulse Ox 97.7 F 94 19 159/71 H 95 04/17/20 23:14 04/17/20 23:14 04/17/20 23:14 04/17/20 23:14 04/17/20 23:14 Doctor's Discharge - Discharge Referrals: JULIA THOMAS MD [Primary Care Provider] - Follow up as needed
--- NOTE | 2020-04-18 01:03 | ER Document Report ---
Doctor's Note Notes: 04/18/20 01:03 I reviewed chart and added orders to expedite patient care, patient waiting for full evaluation by treating provider.
[2020-04-18 01:48] LABS: APPEARANCE,URINE SLIGHTLY-CLOUDY; BILIRUBIN,URINE NEGATIVE (NEGATIVE); COLOR,URINE YELLOW; GLUCOSE, URINE 150 mg/dL (NEGATIVE); KETONES,URINE TRACE mg/dL (NEGATIVE); LEUKOCYTE ESTERASE,URINE MODERATE (NEGATIVE); NITRITE,URINE NEGATIVE (NEGATIVE); PROTEIN,URINE 100 mg/dL (NEGATIVE); URINE SPECIFIC GRAVITY 1.033
--- NOTE | 2020-04-18 03:09 | RADIOLOGY REPORT (SQ) ---
CLINICAL HISTORY: fall, pain COMPARISON: None. TECHNIQUE: CT CERVICAL SPINE WITHOUT IV CONTRAST on 04/18/2020 12:44 AM [employer] UNDER[employer] This exam was performed according to our departmental dose-optimization program, which includes automated exposure control, adjustment of the mA and/or kV according to patient size and/or use of iterative reconstruction technique. FINDINGS: There is no acute fracture. Vertebral body heights are preserved. Alignment is anatomic. Disc spaces are maintained. Soft tissues are unremarkable. IMPRESSION: No acute fracture or subluxation.
--- NOTE | 2020-04-18 03:48 | RADIOLOGY REPORT (SQ) ---
EXAM DESCRIPTION: XR SHOULDER 2 OR MORE VIEWS COMPLETED DATE/TME: 04/18/2020 02:45 CLINICAL HISTORY: 50 years, Female, fall, pain COMPARISON: None. FINDINGS: 3 views of the left shoulder. No acute fracture or dislocation. Degenerative change of the acromioclavicular joint. No acute abnormality of the visualized left chest. IMPRESSION: 1. No acute fracture or dislocation. copyright 2010 [employer]- All Rights Reserved
--- NOTE | 2020-04-18 03:57 | RADIOLOGY REPORT (SQ) ---
EXAM DESCRIPTION: XR HIP 2 OR MORE VIEWS COMPLETED DATE/TME: 04/18/2020 02:45 CLINICAL HISTORY: 50 years, Female, fall, pain COMPARISON: None. NUMBER OF VIEWS: 3 TECHNIQUE: AP pelvis and two-view left hip LIMITATIONS: None. FINDINGS: Negative for acute fracture or dislocation. Soft tissues are unremarkable IMPRESSION: Negative exam copyright 2011 [employer]- All Rights Reserved
--- NOTE | 2020-04-18 03:58 | RADIOLOGY REPORT (SQ) ---
EXAM DESCRIPTION: XR RIBS UNILATERAL WITH CHEST COMPLETED DATE/TME: 04/18/2020 02:45 CLINICAL HISTORY: 50 years, Female, fall, pain COMPARISON: Chest x-ray 07/20/2019 NUMBER OF VIEWS: 4 TECHNIQUE: Frontal view the chest and 3 views left RIBS LIMITATIONS: None. FINDINGS: The heart size is normal. The lungs are clear. There is no pneumothorax. Negative for left rib fracture. IMPRESSION: No acute cardiopulmonary process. Negative for left rib fracture copyright 2010 [employer]- All Rights Reserved
[2020-04-18 04:23] VITALS: BP 129/74
[2020-04-18] MEDS ORDERED: ACETAMINOPHEN 325 MG TABLET PO ONE (06:04)
--- NOTE | 2020-04-18 07:27 | EKG REPORT ---
SEVERITY:- ABNORMAL ECG - SINUS RHYTHM LVH WITH SECONDARY REPOLARIZATION ABNORMALITY ANTERIOR Q WAVES, POSSIBLY DUE TO LVH : Confirmed by: Stephen Castillo MD 18-Apr-2020 07:26:04
== END 2020-04-18 09:31 | disposition left against medical advice (07) ==
LOC: ER 23:08
DX: M25.512 Pain in left shoulder (principal); M54.2 Cervicalgia; R42 Dizziness and giddiness; R07.89 Other chest pain; M25.552 Pain in left hip; W18.39XA Other fall on same level, initial encounter; I48.91 Unspecified atrial fibrillation; I50.9 Heart failure, unspecified; I11.0 Hypertensive heart disease with heart failure; E11.9 Type 2 diabetes mellitus without complications; Z88.6 Allergy status to analgesic agent
CPT/HCPCS: 93005; 99281; 81001; 73502; 71101; 73030; 72125; 93010; J3490